=== PATIENT | male | born 1955 | race Caucasian/White ===

== ENCOUNTER → 2020-07-30 13:50 | Outpatient (BNV) | payer OTHER, SELFPAY | PROVIDERS: PCP Internal Medicine; Visit Provider Internal Medicine | DX: C92.10 Chronic myeloid leukemia, BCR/ABL-positive, not having achieved remission (principal) | CPT/HCPCS: 99212; 99213; 99214 ==

== ENCOUNTER 2020-11-30 10:06 | Outpatient (REF) | payer OTHER, SELFPAY | END 2020-11-30 10:07 | disposition home or self-care (01) | LOC: HO.LAB 10:06 | PROVIDERS: Visit Provider Internal Medicine | DX: Z20.822 Contact with and (suspected) exposure to COVID-19 (principal) | CPT/HCPCS: C9803; U0003; U0005 ==

== ENCOUNTER 2020-12-14 10:39 | Outpatient (REF) | payer OTHER, SELFPAY ==
[2020-12-14 10:59] LABS: COVID-19 Test Negative (Negative); IDNOW Serial# 55D5AD1C
== END 2020-12-14 10:40 | disposition home or self-care (01) ==
LOC: HO.LAB 10:39
PROVIDERS: Visit Provider Internal Medicine
DX: Z20.822 Contact with and (suspected) exposure to COVID-19 (principal)
CPT/HCPCS: 36415; 87635; C9803

== ENCOUNTER 2022-11-09 04:26 | Emergency (ER) | payer OTHER, SELFPAY ==
[2022-11-09 04:32] VITALS: BP 165/97; BP 180/100; PULSE 104; PULSE 95; RESP 16; TEMP 36.7; O2SAT 96; O2SAT 98; BMI 29.0
[2022-11-09 04:50] LABS: Basophils Percent Auto 0.6 % (0-2); Eosinophils Absolute Auto 0.1 X10*3/uL (0.0-0.4); Eosinophils Percent Auto 1.1 % (0-4); Hematocrit 45.7 % (42.0-52.0); Hemoglobin 15.9 g/dl (14.0-18.0); Imm Gran Abs Auto 0.02 X10*3/uL (0.00-0.03); Imm Gran Pct Auto 0.4 % (0.0-0.4); Lymphocytes Absolute Auto 1.3 X10*3/uL (1.2-4.9); Lymphocytes Percent Auto 23.9 % (20-40); MANUAL DIFF FLAG NO; Mean Corpuscular HGB Conc 34.8 g/dl (31.0-36.0); Mean Corpuscular Hemoglobin 30.6 pg (27.0-33.0); Mean Corpuscular Volume 88.1 fL (80.0-98.0); Mean Platelet Volume 10.9 fL (9.4-12.4); Monocytes Absolute Auto 0.4 X10*3/uL (0.1-1.2); Monocytes Percent Auto 7.1 % (2-11); Neutrophils Absolute Auto 3.6 x10*3/uL (2.0-8.3); Neutrophils Percent Auto 66.9 % (45-73); Platelet Count 157 X10*3/uL (160-400); Red Blood Count 5.19 X10*6/uL (4.60-5.80); Red Cell Distribution Width 12.9 % (11.0-16.0); White Blood Count 5.4 X10*3/uL (4.8-10.8)
[2022-11-09 05:06] LABS: Anion Gap 18 (12-20); Blood Urea Nitrogen 9 mg/dL (9-16); Calcium 9.2 mg/dL (8.4-10.2); Carbon Dioxide 27 mmol/L (22-29); Chloride 97 mmol/L (96-108); Creatinine Clr Calc Pharmacy 86.7; Estimated Glomerular Filt Rate > 60; Glucose Random 121 mg/dL (60-115); Potassium 3.6 mmol/L (3.3-5.1); Sodium 138 mmol/L (135-145)
[2022-11-09 05:08] LABS: Appearance Urine Clear; Color Urine Yellow; Glucose Urine UA Negative (Negative); Leukocyte Esterase Urine Negative (Negative); Nitrite Urine Negative (Negative); PH 8.5 (5.0-9.0); UMIC TRIGGER UACC YES; Urine Blood Negative (Negative); Urine Ketones Negative (Negative); Urine Protein 30 (1+) mg/dL (Neg-Trace)
[2022-11-09 05:12] LABS: Bacteria Urine None Seen (None Seen); Hyaline Casts Urine 0-2 /LPF (0-2); RBC Urine 0-2 /HPF (0-2); Squamous Epithelial Cell Urine 0-2 /HPF (0-2); WBC Urine 0-5 /HPF (0-5)
[2022-11-09 05:27] LABS: Influenza A PCR NEGATIVE (Negative); Influenza B PCR NEGATIVE (Negative); Resp Syncy Virus RNA Qual PCR NEGATIVE (Negative); SARS COV2 PCR INHOUSE NEGATIVE (Negative)
[2022-11-09 06:00] VITALS: BP 154/90; PULSE 83; RESP 16; TEMP 36.6; O2SAT 96
--- NOTE | 2022-11-09 06:06 | PC.NURSE ---
pt has been sleeping since arrival, no vomiting since arrival. vitals stable. skin pink warm and dry. no s/s of distress.
--- NOTE | 2022-11-09 07:19 | ED.NAVMDI ---
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 The patient complains of abdominal. He points diffusely to his entire abdomen when asked to localize the pain. States the pain is a constant, dull ache. Patient states he has had nausea and vomiting since onset of the pain. Patient has vomited too many times to count. He denied any blood in the emesis. He states that he had chills but no fever. He denied rhinorrhea, sore throat, cough, chest pain, shortness of breath. He has not noticed any dark or bloody stools. Patient states he was drinking alcohol yesterday. He states that he was drinking several nips of whiskey and 2-3 beers. Related Data Home Medications Medication Instructions Recorded Confirmed amlodipine 10 mg tablet 1 tab PO DAILY 07/30/20 10/22/21 atorvastatin 80 mg tablet 1 tab PO BEDTIME 07/30/20 10/22/21 chlorthalidone 25 mg tablet 1 tab PO DAILY 07/30/20 10/22/21 losartan 100 mg tablet 1 tab PO DAILY 07/30/20 10/22/21 metoprolol succinate 50 mg 1 tab PO DAILY 07/30/20 10/22/21 tablet,extended release 24 hr omeprazole 40 mg capsule,delayed 1 cap PO DAILY 07/30/20 10/22/21 release Previous Rx's Medication Instructions Recorded nilotinib 150 mg capsule (Tasigna) 2 cap PO BID #120 caps 08/13/21 famotidine 40 mg tablet 0.5 tab PO DAILY #30 tabs 09/02/22 ondansetron 4 mg disintegrating 4 mg PO Q6-8H PRN nausea and 11/09/22 tablet vomiting #14 tabs Allergies Allergy/AdvReac Type Severity Reaction Status Date / Time No Known Allergies Allergy Unknown Verified 07/30/20 14:22 Review of Systems Review of Systems: Yes all other systems are reviewed and are negative [facility] Past Medical History [facility] Narrative: Social history: He lives at home with his . He denies tobacco use. He does drink alcohol daily. He denies drug use. Medical History Arthritis Chronic myelogenous leukemia Chronic neck pain Depression Fatty liver History of alcohol abuse Hypercholesteremia Hypertension Osteoarthritis Surgical History History of prostate surgery Family History Family History Mother Diabetes Father Heart problem Liver cancer Brother Prostate CA Family/Other Breast cancer Paternal Aunt Metastatic cancer Social History Social History Alcohol intake: current Alcohol intake frequency: a few times a week Smoked in Last 30 Days: No Use of substances other than those prescribed or required for medical reasons: No Advance Directives: No Advance Directives Information Provided: Yes Physical Exam Vital Signs: Vital Signs: Last Vital Signs Temp 98 F 11/09/22 06:00 Pulse 72 11/09/22 08:02 Resp 16 11/09/22 08:02 BP 165/88 H 11/09/22 08:02 Pulse Ox 97 11/09/22 08:02 O2 Del Method Room Air 11/09/22 08:02 BMI result Body Mass Index 29.0 Const: General: cooperative and no acute distress Orientation/consciousness: oriented to person and oriented to place Limitations: no limitations HEENT: Head: Yes normal to inspection, Yes normocephalic and Yes atraumatic Ears: external ears normal General nose exam: Normal external nose present Face and sinus: Yes normal facial exam Mouth: Normal oral and palatal mucosa present Throat: Yes posterior oropharynx normal Eyes: General: appearance normal, both eyes and all related structures Pupils: Equal, round and reactive pupils present Neck: Neck: Yes normal visual inspection, Yes no lymphadenopathy, Yes trachea midline and Yes supple Chest: Chest palpation & inspection: normal inspection of the chest and normal palpation of entire chest wall Resp: Effort & Inspection: normal respiratory effort and able to speak in complete sentences Auscultation: clear to auscultation bilaterally Cardio: Rate: regular rate Rhythm: regular rhythm Heart sounds: S1 normal heart sound present, S2 normal heart sound present and no murmurs GI: Inspection: Yes normal to inspection Palpation (GI): Soft to palpation, Tenderness to palpation present (GI) in the epigastrum (Moderate), in the LUQ (Moderate) and periumbilically (Moderate) and no guarding Auscultation: normal bowel sounds : General: Yes no CVA tenderness Back/Spine/Pelvis: Back: no CVA tenderness Skin: General skin exam: no rashes or lesions noted Neuro: General: oriented to person and oriented to place Cranial nerves: Yes CN's II-XII intact bilaterally and Yes Equal, round and reactive pupils present Cognition (Neuro): normal cognition Motor exam (neuro): 5/5 motor strength present throughout Extrem: General: Yes normal to inspection Psych: Appearance: grossly normal Speech and movement: Normal speech and movement present Affect: normal affect Attitude: cooperative Thought process: Normal thought process present Medications Administered Discontinued Medications Generic Name Dose Route Start Last Admin Trade Name Freq PRN Reason Stop Dose Admin Sodium Chloride 1,000 mls @ 999 mls/hr 11/09/22 07:23 11/09/22 07:58 Ns IV 11/09/22 08:23 999 mls/hr .Q1H1M STA Administration Ketorolac Tromethamine 15 mg 11/09/22 07:23 11/09/22 07:58 Ketorolac Tromethamine 15 Mg/Ml Vial IVPUSH 11/09/22 07:24 15 mg ONCE STA Administration Ondansetron HCl 4 mg 11/09/22 07:23 11/09/22 07:58 Ondansetron Hcl 4 Mg/2 Ml Vial IVPUSH 11/09/22 07:24 4 mg ONCE ONE Administration Medical Decision Making Medical Decision Making [facility] Narrative: 67-year-old male presents emergency department for evaluation of chills, nausea, vomiting and abdominal pain which started yesterday at 23:00. Patient was drinking alcohol throughout the day yesterday. Vital signs did reveal an elevated blood pressure of 165/97 otherwise unremarkable. Patient did have diffuse abdominal tenderness with some increased tenderness in the epigastric periumbilical and left lower quadrant area. I ordered a CBC, CMP, lipase, ethanol level, urinalysis. Patient was ordered to get normal saline x1 L, Zofran 4 mg IV for his nausea and Toradol 15 mg IV for his abdominal pain. 0724: My interpretation laboratory data is as follows: CBC normal. Glucose elevated 121. Urinalysis positive for protein otherwise negative. COVID-19, influenza and RSV were negative. ETOH was below detectable limits, lipase was normal. 0835: The patient is feeling better after the above treatment. I did discuss alcohol use disorder and he states that he does not want help at this time and he will cut down a lot of alcohol that he drinks. Patient does take omeprazole and famotidine and told to continue taking these medications. He was prescribed Zofran 4 mg ODT every 8 hours as needed for nausea and vomiting. He was given printed and verbal instructions and discharged home. Differential Diagnosis Differential diagnosis includes was not limited to gastritis, alcoholic gastritis, pancreatitis, alcoholic hepatitis, viral syndrome Lab Data 11/09/22 04:45 11/09/22 04:45 Labs: Lab Results 11/09/22 11/09/22 11/09/22 Range/Units 04:45 04:45 04:45 WBC 5.4 (4.8-10.8) X10*3/uL RBC 5.19 (4.60-5.80) X10*6/uL Hgb 15.9 (14.0-18.0) g/dl Hct 45.7 (42.0-52.0) % MCV 88.1 (80.0-98.0) fL MCH 30.6 (27.0-33.0) pg MCHC 34.8 (31.0-36.0) g/dl RDW 12.9 (11.0-16.0) % Plt Count 157 L (160-400) X10*3/uL MPV 10.9 (9.4-12.4) fL Immature Gran % (Auto) 0.4 (0.0-0.4) % Neut % (Auto) 66.9 (45-73) % Lymph % (Auto) 23.9 (20-40) % Pope % (Auto) 7.1 (2-11) % Eos % (Auto) 1.1 (0-4) % Baso % (Auto) 0.6 (0-2) % Lymph # (Auto) 1.3 (1.2-4.9) X10*3/uL Pope # (Auto) 0.4 (0.1-1.2) X10*3/uL Eos # (Auto) 0.1 (0.0-0.4) X10*3/uL Baso # (Auto) 0.0 (0.0-0.2) X10*3/uL Abs Immat Gran (auto) 0.02 (0.00-0.03) X10*3/uL Absolute Neuts (auto) 3.6 (2.0-8.3) x10*3/uL Absolute Nucleated RBC 0.000 (0.0-0.012) X10*3/uL Nucleated RBC % (auto) 0.0 (0.0-0.2) /100WBC Sodium 138 (135-145) mmol/L Potassium 3.6 (3.3-5.1) mmol/L Chloride 97 (96-108) mmol/L Carbon Dioxide 27 (22-29) mmol/L Anion Gap 18 (12-20) BUN 9 (9-16) mg/dL Creatinine 0.84 (0.5-1.4) mg/dL Estim Creat Clear Calc 86.7 Estimated GFR > 60 Random Glucose 121 H (60-115) mg/dL Calcium 9.2 (8.4-10.2) mg/dL Lipase 25 (8-78) U/L Urine Color Urine Appearance Urine pH (5.0-9.0) Ur Specific [place] (1.005-1.025) Urine Protein (Neg-Trace) mg/dL Urine Glucose (UA) (Negative) mg/dL Urine Ketones (Negative) mg/dL Urine Blood (Negative) Urine Nitrite (Negative) Ur Leukocyte Esterase (Negative) Urine RBC (0-2) /HPF Urine WBC (0-5) /HPF Ur Squamous Epith Cells (0-2) /HPF Urine Bacteria (None Seen) Hyaline Casts (0-2) /LPF Ethyl Alcohol < 10 mg/dL Influenza Type A (PCR) NEGATIVE (Negative) Influenza Type B (PCR) NEGATIVE (Negative) RSV RNA Qual (PCR) NEGATIVE (Negative) SARS-CoV-2 RNA (RT-PCR) NEGATIVE (Negative) 11/09/22 Range/Units 04:57 WBC (4.8-10.8) X10*3/uL RBC (4.60-5.80) X10*6/uL Hgb (14.0-18.0) g/dl Hct (42.0-52.0) % MCV (80.0-98.0) fL MCH (27.0-33.0) pg MCHC (31.0-36.0) g/dl RDW (11.0-16.0) % Plt Count (160-400) X10*3/uL MPV (9.4-12.4) fL Immature Gran % (Auto) (0.0-0.4) % Neut % (Auto) (45-73) % Lymph % (Auto) (20-40) % Pope % (Auto) (2-11) % Eos % (Auto) (0-4) % Baso % (Auto) (0-2) % Lymph # (Auto) (1.2-4.9) X10*3/uL Pope # (Auto) (0.1-1.2) X10*3/uL Eos # (Auto) (0.0-0.4) X10*3/uL Baso # (Auto) (0.0-0.2) X10*3/uL Abs Immat Gran (auto) (0.00-0.03) X10*3/uL Absolute Neuts (auto) (2.0-8.3) x10*3/uL Absolute Nucleated RBC (0.0-0.012) X10*3/uL Nucleated RBC % (auto) (0.0-0.2) /100WBC Sodium (135-145) mmol/L Potassium (3.3-5.1) mmol/L Chloride (96-108) mmol/L Carbon Dioxide (22-29) mmol/L Anion Gap (12-20) BUN (9-16) mg/dL Creatinine (0.5-1.4) mg/dL Estim Creat Clear Calc Estimated GFR Random Glucose (60-115) mg/dL Calcium (8.4-10.2) mg/dL Lipase (8-78) U/L Urine Color Yellow Urine Appearance Clear Urine pH 8.5 (5.0-9.0) Ur Specific [place] 1.010 (1.005-1.025) Urine Protein 30 (1+) H (Neg-Trace) mg/dL Urine Glucose (UA) Negative (Negative) mg/dL Urine Ketones Negative (Negative) mg/dL Urine Blood Negative (Negative) Urine Nitrite Negative (Negative) Ur Leukocyte Esterase Negative (Negative) Urine RBC 0-2 (0-2) /HPF Urine WBC 0-5 (0-5) /HPF Ur Squamous Epith Cells 0-2 (0-2) /HPF Urine Bacteria None Seen (None Seen) Hyaline Casts 0-2 (0-2) /LPF Ethyl Alcohol mg/dL Influenza Type A (PCR) (Negative) Influenza Type B (PCR) (Negative) RSV RNA Qual (PCR) (Negative) SARS-CoV-2 RNA (RT-PCR) (Negative) Discharge Plan Discharge Clinical Impression: Alcohol use disorder, Acute dehydration Gastritis Qualifiers: Chronicity: acute Gastritis bleeding: without bleeding Patient Disposition: Home, Self-Care Instructions: Gastritis (ED) Additional Instructions: Your blood work was normal which is reassuring. Your symptoms are either caused by a viral infection or by drinking too much alcohol. Continue taking medications as prescribed (omeprazole and famotidine). These medications will reduce the acid in your stomach and help your stomach heal. Take Zofran ODT 4 mg pills, 1 pill dissolved in your mouth every 8 hours as needed for nausea and vomiting. Follow-up with your doctor in 2 days. Please return to the emergency department if your symptoms get worse or if you develop any symptoms that are concerning to you. Prescriptions: New ondansetron 4 mg tablet,disintegrating 4 mg PO Q6-8H PRN (Reason: nausea and vomiting) Qty: 14 0RF No Action atorvastatin 80 mg tablet 1 tab PO BEDTIME metoprolol succinate 50 mg tablet extended release 24 hr 1 tab PO DAILY chlorthalidone 25 mg tablet 1 tab PO DAILY omeprazole 40 mg capsule,delayed release(DR/EC) 1 cap PO DAILY amlodipine 10 mg tablet 1 tab PO DAILY losartan 100 mg tablet 1 tab PO DAILY Tasigna 150 mg capsule 2 cap PO BID Qty: 120 6RF famotidine 40 mg tablet 0.5 tab PO DAILY Qty: 30 6RF
[2022-11-09 07:38] LABS: Ethanol < 10 mg/dL; Lipase 25 U/L (8-78)
[2022-11-09] MEDS: Ketorolac Tromethamine 15 MG/ML VIAL IVPUSH (07:58)
[2022-11-09] MEDS: ondansetron HCL 4 MG/2 ML VIAL IVPUSH (07:58)
[2022-11-09] MEDS: 0.9 % Sodium Chloride 1,000 ML 999 ML IV (07:58)
[2022-11-09 08:02] VITALS: BP 165/88; PULSE 72; RESP 16; O2SAT 97
--- NOTE | 2022-11-09 08:02 | PC.NURSE ---
Respirations even and unlabored, vss. Pt resting quietly on stretcher. IV fluids infusing, medicated per the MAR. Call zaman in reach.
== END 2022-11-09 09:02 | disposition home or self-care (01) ==
PROVIDERS: Emergency Provider Emergency Medicine Emergency Medical Services
DX: K29.00 Acute gastritis without bleeding (principal); E86.0 Dehydration; F10.188 Alcohol abuse with other alcohol-induced disorder; Y90.0 Blood alcohol level of less than 20 mg/100 ml; R11.2 Nausea with vomiting, unspecified; Z20.822 Contact with and (suspected) exposure to COVID-19; Z20.828 Contact with and (suspected) exposure to other viral communicable diseases; C92.10 Chronic myeloid leukemia, BCR/ABL-positive, not having achieved remission; E78.5 Hyperlipidemia, unspecified; I10 Essential (primary) hypertension; Z79.02 Long term (current) use of antithrombotics/antiplatelets; Z79.899 Other long term (current) drug therapy
CPT/HCPCS: 0241U; 36415; 80048; 81001; 81003; 82077; 83690; 85025; 96374; 96375; 99284; J1885; J2405

== ENCOUNTER 2022-11-30 11:36 | Emergency (ER) | payer OTHER, SELFPAY ==
--- NOTE | ~2022-11-30 | US_ITS ---
EXAMINATION: US ABDOMEN LIMITED CLINICAL INFORMATION: Right upper quadrant pain. COMPARISON: Previous CT February 2020 and ultrasound October 2008 TECHNIQUE: Real-time imaging of the right upper quadrant abdominal viscera. FINDINGS: PANCREAS: The head of the pancreas is normal. The body and tail are not well visualized due to bowel gas. LIVER: Liver echotexture is increased. The liver is slightly enlarged. The liver contour is normal. No focal hepatic lesion. There is no intrahepatic biliary duct dilatation seen. GALLBLADDER: Normal. The gallbladder is physiologically distended without evidence of stones, sludge, polyps, wall thickening or pericholecystic fluid. COMMON BILE DUCT: Normal in caliber measuring 0.3 cm in diameter. RIGHT KIDNEY: Normal. No hydronephrosis. No renal calculi or focal parenchymal lesions. The kidney measures 10.5 cm in maximum dimension. FREE FLUID: None. US/US abdomen limited IMPRESSION: Slightly enlarged echogenic liver probably representing fatty infiltration. Normal-appearing gallbladder. Limited visualization of the tail the pancreas.
--- NOTE | ~2022-11-30 | XR_ITS ---
EXAMINATION: XR CHEST CLINICAL INFORMATION: Cough COMPARISON: Chest radiograph 10/13/2019, CTA chest 02/04/2019. TECHNIQUE: 2 views of the chest were obtained. FINDINGS: The lungs are clear. There is no airspace consolidation or groundglass opacity or effusion. Small benign granuloma lateral apical right upper lobe is stable from CTA chest 2019. The costophrenic sulci are clear. The heart is normal in size. The hilar and mediastinal contours and visualized bony structures are unremarkable. XR/XR chest 2V IMPRESSION: Lungs clear. No acute intrathoracic disease.
--- NOTE | ~2022-11-30 | CT_ITS ---
EXAMINATION: CT ABDOMEN AND PELVIS WITH CONTRAST CLINICAL INFORMATION: Abdominal pain. COMPARISON: 02/19/2020 CT scan of the abdomen and pelvis, abdominal ultrasound dated 11/30/2022. TECHNIQUE: Multidetector volumetric images were obtained from the superior aspect of the liver through the pubic symphysis following administration 85 mL of Omnipaque 350 intravenous contrast. Sagittal and coronal reformatted images were obtained on the technologist's workstation. Oral contrast: No This CT examination was performed using dose optimization techniques as appropriate, variously including the following: *Automated exposure control *Adjustment of mA and/or kV according to patient size (this includes techniques or standardized protocols for targeted exams where dose is matched to indication/reason for exam; i.e. extremities or head) *Use of iterative reconstruction technique DLP: 506 mGy-cm FINDINGS: LUNG BASES: The visualized lung bases are unremarkable. LIVER, GALLBLADDER, AND BILIARY TREE: Diffuse decreased hepatic attenuation without focal abnormality. PANCREAS: Unremarkable. SPLEEN: Unremarkable. ADRENAL GLANDS: Unremarkable. KIDNEYS AND URETERS: Small low-attenuation cyst bilaterally demonstrate overall benign features. The larger cyst demonstrates fluid attenuation. No nephrolithiasis or hydroureteronephrosis. BLADDER: Mildly distended without focal mural abnormality. GASTROINTESTINAL TRACT: The stomach and small bowel are unremarkable. There is increased mural thickening and minimal surrounding infiltrative changes measuring up to 1.0 cm (previously 0.6 cm), image 62, series 3. The colon and rectum are unremarkable. ABDOMINAL WALL: Small fat-containing left inguinal hernia without abnormality. LYMPH NODES: No lymphadenopathy. VASCULAR: Unremarkable. PELVIC VISCERA: Mild prostamegaly with mild coarse central calcifications. OSSEOUS STRUCTURES: Mild degenerative changes. No acute/suspicious abnormality. CT/CT abdomen pelvis w IV con IMPRESSION: 1. Interval increase in thickening of the appendix since 2019 study. These findings are of indeterminate age given the long interval between studies however, acute appendicitis cannot be excluded. 2. Hepatic steatosis. 3. Bilateral renal cyst and shows benign features not requiring follow-up at this time.
[2022-11-30 11:45] VITALS: BP 146/88; BP 170/90; PULSE 80; PULSE 81; RESP 18; TEMP 36.9; O2SAT 96; O2SAT 99; BMI 27.3
--- NOTE | 2022-11-30 12:34 | ED.ABDPAIN ---
HPI - Abdominal Pain General Chief Complaint: Abdominal Pain <CARMEN Saenz Last Filed: 12/01/22 07:23> Stated Complaint: Abd pain per EMS <CARMEN Saenz Last Filed: 12/01/22 07:23> Time Seen by Provider: 11/30/22 12:05 <CARMEN Saenz Last Filed: 12/01/22 07:23> Source: patient, RN notes reviewed and language interpreter (With) <CARMEN Saenz Last Filed: 12/01/22 07:23> Mode of arrival: ambulatory <CARMEN Saenz Last Filed: 12/01/22 07:23> Limitations: no limitations and language barrier (Can speak some Ethiopian, does understand Kenyan however the paraprofessional interpreter was used) <CARMEN Saenz Last Filed: 12/01/22 07:23> History of Present Illness HPI narrative: This is a 67-year-old male, with a past medical history of chronic myeloid leukemia, who presents emergency department today complaining of nausea, vomiting, right upper quadrant pain, and dark stool x2 days. Patient reports decreased appetite secondary to fear of developing worsening abdominal pain. He was able to eat breakfast this morning however reports that he vomited it back up. Patient reports that he has acidic, bitter taste in his mouth. He denies bright red blood vomitus or stool. He denies any fevers, admits to having chills. Denies ear pain, runny nose, chest pain, shortness of breath, cough. Denies any other complaints or concerns at this time. <CARMEN Saenz Last Filed: 12/01/22 07:23> MD elicited complaint: abdominal pain <CARMEN Saenz Last Filed: 12/01/22 07:23> Pertinent past history: none <CARMEN Saenz Last Filed: 12/01/22 07:23> Onset (ago): day(s) <CARMEN Saenz Last Filed: 12/01/22 07:23> Pain Consistency: constant and colicky <CARMEN Saenz Last Filed: 12/01/22 07:23> Location: none <CARMEN Saenz Last Filed: 04/27/23 07:23> Severity: moderate <CARMEN Saenz Last Filed: 12/01/22 07:23> Quality: aching <CARMEN Saenz Last Filed: 12/01/22 07:23> Radiation: RUQ <CARMEN Saenz Last Filed: 12/01/22 07:23> Migration to: no migration <CARMEN Saenz Last Filed: 12/01/22 07:23> Exacerbating factors: eating and vomiting <CARMEN Saenz Last Filed: 12/01/22 07:23> Relieving factors: nothing <CARMEN Saenz Last Filed: 12/01/22 07:23> Associated symptoms: nausea, vomiting and melena <CARMEN Saenz Last Filed: 12/01/22 07:23> Related Data Home Medications: Home Medications Medication Instructions Recorded Confirmed amlodipine 10 mg tablet 1 tab PO DAILY 07/30/20 10/22/21 atorvastatin 80 mg tablet 1 tab PO BEDTIME 07/30/20 10/22/21 chlorthalidone 25 mg tablet 1 tab PO DAILY 07/30/20 10/22/21 losartan 100 mg tablet 1 tab PO DAILY 07/30/20 10/22/21 metoprolol succinate 50 mg 1 tab PO DAILY 07/30/20 10/22/21 tablet,extended release 24 hr omeprazole 40 mg capsule,delayed 1 cap PO DAILY 07/30/20 10/22/21 release Previous Rx's Medication Instructions Recorded nilotinib 150 mg capsule (Tasigna) 2 cap PO BID #120 caps 08/13/21 famotidine 40 mg tablet 0.5 tab PO DAILY #30 tabs 09/02/22 ondansetron 4 mg disintegrating 4 mg PO Q6-8H PRN nausea and 11/09/22 tablet vomiting #14 tabs ondansetron 4 mg disintegrating 4 mg PO Q8H PRN nausea and 11/30/22 tablet vomiting #20 tabs <CARMEN Saenz Last Filed: 12/01/22 07:23> Allergies/Adverse Reactions: Allergies Allergy/AdvReac Type Severity Reaction Status Date / Time No Known Allergies Allergy Unknown Verified 07/30/20 14:22 <CARMEN Saenz Last Filed: 12/01/22 07:23> Review of Systems Review of Systems Constitutional: No Weight loss, No Fever, No Chills, No Night Sweats, No Fatigue, No Malaise ENT/Mouth: No Hearing loss, No Ear Pain, No Nasal Congestion, No Sinus Pain, No Hoarseness, No sore throat, No Rhinorrhea, No Swallowing Difficulty Eyes: No Eye Pain, No Swelling, No Redness, No Foreign Body, No Discharge, No Vision Changes Cardiovascular: No Chest Pain, No SOB, No Dyspnea on Exertion, No Orthopnea, No Edema, No Palpitations Respiratory: No Cough, No Sputum, No Wheezing, No Smoke Exposure, No Dyspnea Gastrointestinal: + Nausea, +Vomiting, No Diarrhea, No Constipation, + Abdominal pain, No Hematochezia, + Melena Genitourinary: No irregular bleeding, No Dysuria, No Urinary Frequency, No Hematuria, No Urinary Incontinence/retention, No Urgency, No Flank Pain, No Urinary Flow Changes, No Hesitancy Musculoskeletal: No joint pain, No Myalgias, No Joint Swelling Skin: No Skin Lesions, No rash Neuro: No Weakness, No Numbness, No Paresthesias, No Loss of Consciousness, No Dizziness, No Headache Psych: No Anxiety/Panic, No Depression, No SI/HI/AH/VH, No Social Issues, Heme/Lymph: No Bruising, No Bleeding,No Lymphadenopathy Endocrine: No Polyuria, No Polydipsia, No Temperature Intolerance <CARMEN Saenz - Last Filed: 12/01/22 07:23> Yes all other systems are reviewed and are negative <CARMEN Saenz - Last Filed: 12/01/22 07:23> Constitutional: Reports as per HPI <CARMEN Saenz - Last Filed: 12/01/22 07:23> [facility] Past Medical History Attestation statement: The following information was validated with the patient. <CARMEN Saenz - Last Filed: 12/01/22 07:23> Medical History: Medical History Arthritis Chronic myelogenous leukemia Chronic neck pain Depression Fatty liver History of alcohol abuse Hypercholesteremia Hypertension Osteoarthritis <CARMEN Saenz - Last Filed: 12/01/22 07:23> Surgical History: Surgical History History of prostate surgery <CARMEN Saenz - Last Filed: 12/01/22 07:23> Family History Family History: Family History Mother Diabetes Father Heart problem Liver cancer Brother Prostate CA Family/Other Breast cancer Paternal Aunt Metastatic cancer <CARMEN Saenz - Last Filed: 12/01/22 07:23> Social History Social History: Social History Alcohol intake: current Alcohol intake frequency: a few times a week Advance Directives: No Advance Directives Information Provided: Yes <CARMEN Saenz - Last Filed: 12/01/22 07:23> Physical Exam ED Vital Signs: Vital Signs - 24 hr 11/30/22 11:45 11/30/22 14:08 Temperature 98.4 F Pulse Rate 80 77 Respiratory Rate 18 16 Blood Pressure 146/88 H 165/85 H Pulse Oximetry 96 98 Oxygen Delivery Method Room Air Room Air BMI result Body Mass Index 27.3 <CARMEN Saenz - Last Filed: 12/01/22 07:23> Vital Signs - 24 hr 11/30/22 11:45 11/30/22 14:08 Temperature 98.4 F Pulse Rate 80 77 Respiratory Rate 18 16 Blood Pressure 146/88 H 165/85 H Pulse Oximetry 96 98 Oxygen Delivery Method Room Air Room Air BMI result Body Mass Index 27.3 <Ihsan López - Last Filed: 11/30/22 18:20> Const General: cooperative, comfortable and no acute distress <CARMEN Saenz - Last Filed: 12/01/22 07:23> Orientation/consciousness: patient oriented x3 <CARMEN Saenz - Last Filed: 12/01/22 07:23> Limitations: no limitations <CARMEN Saenz - Last Filed: 12/01/22 07:23> HENMT Head: Yes normal to inspection, Yes normocephalic and Yes atraumatic <CARMEN Saenz - Last Filed: 12/01/22 07:23> Ears: hearing grossly normal bilaterally <CARMEN Saenz - Last Filed: 12/01/22 07:23> General nose exam: Normal external nose present <Susie Romo, PA - Last Filed: 12/01/22 07:23> Face and sinus: Yes normal facial exam <Susie Demetrius PA - Last Filed: 12/01/22 07:23> Mouth: Normal oral and palatal mucosa present, oropharynx normal and moist mucous membranes <Susie Romo PA - Last Filed: 12/01/22 07:23> Throat: Yes posterior oropharynx normal <Susie Romo, PA - Last Filed: 12/01/22 07:23> Eyes General: appearance normal, both eyes and all related structures <Susie Romo PA - Last Filed: 12/01/22 07:23> Eyelids: Yes eyelids normal <Susie Romo PA - Last Filed: 12/01/22 07:23> Conjunctivae: conjunctivae normal <Susie Romo PA - Last Filed: 12/01/22 07:23> Sclerae: sclerae normal <Susie Romo PA - Last Filed: 12/01/22 07:23> Pupils: Equal, round and reactive pupils present <Susie Romo PA - Last Filed: 12/01/22 07:23> EOM: EOMs intact bilaterally <Susie Romo PA - Last Filed: 12/01/22 07:23> Neck Neck: Yes normal visual inspection, Yes full ROM and Yes no lymphadenopathy <Susie Romo PA - Last Filed: 12/01/22 07:23> Lymphatic: no lymphadenopathy noted <Susie Romo PA - Last Filed: 12/01/22 07:23> Chest Chest palpation & inspection: normal inspection of the chest <Susie Romo PA - Last Filed: 12/01/22 07:23> Resp Effort & Inspection: normal respiratory effort and able to speak in complete sentences <Susie Romo PA - Last Filed: 12/01/22 07:23> Auscultation: clear to auscultation bilaterally, no crackles, no rales, no rhonchi and no wheezes <Susie Romo PA - Last Filed: 12/01/22 07:23> Cardio Rate: regular rate <Susie Romo PA - Last Filed: 12/01/22 07:23> Rhythm: regular rhythm <Susie Kinneyyasmeen PA - Last Filed: 12/01/22 07:23> Heart sounds: S1 normal heart sound present and S2 normal heart sound present <Susie Kinneyyasmeen PA - Last Filed: 12/01/22 07:23> GI Other: Abdomen is soft, tenderness to palpation throughout the abdomen, most tender in the right upper quadrant. +Ley sign. No rebound, no guarding. Normoactive bowel sounds. Minimal stool in rectum, appears light brown in color. <Susie Kinneyyasmeen PA - Last Filed: 12/01/22 07:23> Inspection: Yes normal to inspection <Susieedward Romo PA - Last Filed: 12/01/22 07:23> Rectal Exam - Male: Yes visual inspection normal and Yes normal sphincter tone <Susie Romo, PA - Last Filed: 12/01/22 07:23> Skin General skin exam: no rashes or lesions noted <Susie Romo [place] - Last Filed: 12/01/22 07:23> Trauma: no lacerations or abrasions <Susie Romo [place] - Last Filed: 12/01/22 07:23> Wounds: no wounds <Susie Romo PA - Last Filed: 12/01/22 07:23> Neuro General: patient oriented x3 and moves all extremities <Susieedward Romo PA - Last Filed: 12/01/22 07:23> Cranial nerves: Yes Equal, round and reactive pupils present <Susie Romo PA - Last Filed: 12/01/22 07:23> Extrem General: Yes normal to inspection <Susie Romo PA - Last Filed: 12/01/22 07:23> Right upper extremity: normal to inspection <Susie Romo PA - Last Filed: 12/01/22 07:23> Left upper extremity: normal to inspection <Susie Romo PA - Last Filed: 12/01/22 07:23> Right lower extremity: normal to inspection <Susie Romo PA - Last Filed: 12/01/22 07:23> Left lower extremity: normal to inspection <Susie Romo PA - Last Filed: 12/01/22 07:23> Course Course Course Narrative: 6:18 p.m. patient received in sign-out at change shift pending CT scan of the abdomen re-evaluation. I evaluated the patient is a paraprofessional interpreter. The patient reports his pain has improved. He does have some tenderness in the epigastric region but there is no right lower quadrant tenderness on exam. CT scan does show some interval increase in taking the appendix. However given is no right lower quadrant tenderness on exam this is favored to not be acute appendicitis. I discussed the patient's workup with the patient he is stable to follow up with his primary doctor <Ihsan López - Last Filed: 11/30/22 18:20> Reevaluation(s) Reevaluation #1: Pt requesting pain medication, Toradol 30mg IM ordered. <CARMEN Saenz - Last Filed: 12/01/22 07:23> Time: 14:00 <CARMEN Saenz - Last Filed: 12/01/22 07:23> Reevaluation #2: Pt sleeping in stretcher, still reporting pain, improved with Toradol. Nausea has resolved. Ultrasound reviewed as Slightly enlarged echogenic liver probably representing fatty infiltration. Normal-appearing gallbladder. Limited visualization of the tail the pancreas. CT abdomen and pelvis ordered for further evaluation. <CARMEN Saenz - Last Filed: 12/01/22 07:23> Time: 14:44 <CARMEN Saenz - Last Filed: 12/01/22 07:23> Reevaluation #3: CT scan still pending. Given sign out to Ihsan López PA-C <CARMEN Saenz Last Filed: 12/01/22 07:23> Time: 16:33 <CARMEN Saenz Last Filed: 12/01/22 07:23> Medical Decision Making Medical Decision Making MDM Narrative: 67 yo M, with a hx of CML, who presents to the emergency department with complaints of RUQ pain, nausea, vomiting, and dark colored stool x 2 days. On examination, patient has mild tenderness to palpation in the right quadrant, with no rebound or guarding. Patient is mildly hypertensive at 146/88, patient is afebrile, all other vital signs WNL. Upon chart review, patient was seen in the ER on 11/09/2022 with similar symptoms, and had a normal work up, dx with gastritis. Plan: Labs, UA, chest x-ray, ultrasound right upper quadrant ordered. <Susie RomoCARMEN - Last Filed: 12/01/22 07:23> Differential Diagnosis Differential Diagnoses: The differential diagnosis associated with the presentation includes <Susie RomoCARMEN - Last Filed: 12/01/22 07:23> Cholecystitis, cholelithiasis, dehydration, electrolyte abnormality, GERD, gastritis <Susie RomoCARMEN arana - Last Filed: 12/01/22 07:23> Admission/Observation Consideration of admission/observation: Escalation of care including admission/observation considered <Susie RomoCARMEN arana - Last Filed: 12/01/22 07:23> Lab Data MDM Lab Attestation statement: I reviewed the patient's lab results. <Susie RomoCARMEN arana - Last Filed: 12/01/22 07:23> Result Diagrams: 11/30/22 12:46 11/30/22 12:46 <SusieCARMEN Rosas - Last Filed: 12/01/22 07:23> Labs: Lab Results 11/30/22 11/30/22 11/30/22 Range/Units 12:38 12:38 12:38 WBC (4.8-10.8) X10*3/uL RBC (4.60-5.80) X10*6/uL Hgb (14.0-18.0) g/dl Hct (42.0-52.0) % MCV (80.0-98.0) fL MCH (27.0-33.0) pg MCHC (31.0-36.0) g/dl RDW (11.0-16.0) % Plt Count (160-400) X10*3/uL MPV (9.4-12.4) fL Immature Gran % (Auto) (0.0-0.4) % Neut % (Auto) (45-73) % Lymph % (Auto) (20-40) % [place] % (Auto) (2-11) % Eos % (Auto) (0-4) % Baso % (Auto) (0-2) % Lymph # (Auto) (1.2-4.9) X10*3/uL [place] # (Auto) (0.1-1.2) X10*3/uL Eos # (Auto) (0.0-0.4) X10*3/uL Baso # (Auto) (0.0-0.2) X10*3/uL Abs Immat Gran (auto) (0.00-0.03) X10*3/uL Absolute Neuts (auto) (2.0-8.3) x10*3/uL Absolute Nucleated RBC (0.0-0.012) X10*3/uL Nucleated RBC % (auto) (0.0-0.2) /100WBC Sodium (135-145) mmol/L Potassium (3.3-5.1) mmol/L Chloride (96-108) mmol/L Carbon Dioxide (22-29) mmol/L Anion Gap (12-20) BUN (9-16) mg/dL Creatinine (0.5-1.4) mg/dL Estim Creat Clear Calc Estimated GFR Random Glucose (60-115) mg/dL Calcium (8.4-10.2) mg/dL Magnesium (1.6-2.6) mg/dL Total Bilirubin (0.0-1.0) mg/dL Direct Bilirubin (0.0-0.5) mg/dL AST (5-37) U/L ALT (0-40) U/L Alkaline Phosphatase (39-117) U/L Total Protein (6.5-8.0) g/dL Albumin (3.5-5.0) g/dL Lipase (8-78) U/L Urine Color Yellow Urine Appearance Clear Urine pH 7.5 (5.0-9.0) Ur Specific Picher <= 1.005 (1.005-1.025) Urine Protein Negative (Neg-Trace) mg/dL Urine Glucose (UA) Negative (Negative) mg/dL Urine Ketones Negative (Negative) mg/dL Urine Blood Negative (Negative) Urine Nitrite Negative (Negative) Ur Leukocyte Esterase Negative (Negative) Stool Occult Blood NEGATIVE (NEGATIVE) Urine Opiates Screen Not Detected (Not Detect) Urine Fentanyl Screen POSITIVE H (Not Detect) Ur Barbiturates Screen Not Detected (Not Detect) Ur Phencyclidine Scrn Not Detected (Not Detect) Ur Amphetamines Screen Not Detected (Not Detect) U Benzodiazepines Scrn Not Detected (Not Detect) Urine Cocaine Screen POSITIVE H (Not Detect) U Marijuana (THC) Screen Not Detected (Not Detect) Ethyl Alcohol mg/dL 11/30/22 11/30/22 Range/Units 12:46 14:13 WBC 3.3 L (4.8-10.8) X10*3/uL RBC 4.84 (4.60-5.80) X10*6/uL Hgb 15.1 (14.0-18.0) g/dl Hct 43.7 (42.0-52.0) % MCV 90.3 (80.0-98.0) fL MCH 31.2 (27.0-33.0) pg MCHC 34.6 (31.0-36.0) g/dl RDW 12.4 (11.0-16.0) % Plt Count 110 L D (160-400) X10*3/uL MPV 11.5 (9.4-12.4) fL Immature Gran % (Auto) 0.3 (0.0-0.4) % Neut % (Auto) 66.7 (45-73) % Lymph % (Auto) 24.3 (20-40) % [place] % (Auto) 6.9 (2-11) % Eos % (Auto) 1.5 (0-4) % Baso % (Auto) 0.3 (0-2) % Lymph # (Auto) 0.8 L (1.2-4.9) X10*3/uL [place] # (Auto) 0.2 (0.1-1.2) X10*3/uL Eos # (Auto) 0.1 (0.0-0.4) X10*3/uL Baso # (Auto) 0.0 (0.0-0.2) X10*3/uL Abs Immat Gran (auto) 0.01 (0.00-0.03) X10*3/uL Absolute Neuts (auto) 2.2 (2.0-8.3) x10*3/uL Absolute Nucleated RBC 0.000 (0.0-0.012) X10*3/uL Nucleated RBC % (auto) 0.0 (0.0-0.2) /100WBC Sodium 137 (135-145) mmol/L Potassium 3.7 (3.3-5.1) mmol/L Chloride 105 (96-108) mmol/L Carbon Dioxide 27 (22-29) mmol/L Anion Gap 9 L (12-20) BUN 5 L (9-16) mg/dL Creatinine 0.67 (0.5-1.4) mg/dL Estim Creat Clear Calc 102.3 Estimated GFR > 60 Random Glucose 115 (60-115) mg/dL Calcium 8.3 L D (8.4-10.2) mg/dL Magnesium 1.9 (1.6-2.6) mg/dL Total Bilirubin 1.4 H (0.0-1.0) mg/dL Direct Bilirubin 0.4 (0.0-0.5) mg/dL AST 68 H (5-37) U/L ALT 53 H (0-40) U/L Alkaline Phosphatase 108 (39-117) U/L Total Protein 6.5 (6.5-8.0) g/dL Albumin 3.1 L (3.5-5.0) g/dL Lipase 48 (8-78) U/L Urine Color Urine Appearance Urine pH (5.0-9.0) Ur Specific Picher (1.005-1.025) Urine Protein (Neg-Trace) mg/dL Urine Glucose (UA) (Negative) mg/dL Urine Ketones (Negative) mg/dL Urine Blood (Negative) Urine Nitrite (Negative) Ur Leukocyte Esterase (Negative) Stool Occult Blood (NEGATIVE) Urine Opiates Screen (Not Detect) Urine Fentanyl Screen (Not Detect) Ur Barbiturates Screen (Not Detect) Ur Phencyclidine Scrn (Not Detect) Ur Amphetamines Screen (Not Detect) U Benzodiazepines Scrn (Not Detect) Urine Cocaine Screen (Not Detect) U Marijuana (THC) Screen (Not Detect) Ethyl Alcohol < 10 mg/dL <CARMEN Saenz - Last Filed: 12/01/22 07:23> Lab Results 11/30/22 11/30/22 11/30/22 Range/Units 12:38 12:38 12:38 WBC (4.8-10.8) X10*3/uL RBC (4.60-5.80) X10*6/uL Hgb (14.0-18.0) g/dl Hct (42.0-52.0) % MCV (80.0-98.0) fL MCH (27.0-33.0) pg MCHC (31.0-36.0) g/dl RDW (11.0-16.0) % Plt Count (160-400) X10*3/uL MPV (9.4-12.4) fL Immature Gran % (Auto) (0.0-0.4) % Neut % (Auto) (45-73) % Lymph % (Auto) (20-40) % [place] % (Auto) (2-11) % Eos % (Auto) (0-4) % Baso % (Auto) (0-2) % Lymph # (Auto) (1.2-4.9) X10*3/uL [place] # (Auto) (0.1-1.2) X10*3/uL Eos # (Auto) (0.0-0.4) X10*3/uL Baso # (Auto) (0.0-0.2) X10*3/uL Abs Immat Gran (auto) (0.00-0.03) X10*3/uL Absolute Neuts (auto) (2.0-8.3) x10*3/uL Absolute Nucleated RBC (0.0-0.012) X10*3/uL Nucleated RBC % (auto) (0.0-0.2) /100WBC Sodium (135-145) mmol/L Potassium (3.3-5.1) mmol/L Chloride (96-108) mmol/L Carbon Dioxide (22-29) mmol/L Anion Gap (12-20) BUN (9-16) mg/dL Creatinine (0.5-1.4) mg/dL Estim Creat Clear Calc Estimated GFR Random Glucose (60-115) mg/dL Calcium (8.4-10.2) mg/dL Magnesium (1.6-2.6) mg/dL Total Bilirubin (0.0-1.0) mg/dL Direct Bilirubin (0.0-0.5) mg/dL AST (5-37) U/L ALT (0-40) U/L Alkaline Phosphatase (39-117) U/L Total Protein (6.5-8.0) g/dL Albumin (3.5-5.0) g/dL Lipase (8-78) U/L Urine Color Yellow Urine Appearance Clear Urine pH 7.5 (5.0-9.0) Ur Specific Picher <= 1.005 (1.005-1.025) Urine Protein Negative (Neg-Trace) mg/dL Urine Glucose (UA) Negative (Negative) mg/dL Urine Ketones Negative (Negative) mg/dL Urine Blood Negative (Negative) Urine Nitrite Negative (Negative) Ur Leukocyte Esterase Negative (Negative) Stool Occult Blood NEGATIVE (NEGATIVE) Urine Opiates Screen Not Detected (Not Detect) Urine Fentanyl Screen POSITIVE H (Not Detect) Ur Barbiturates Screen Not Detected (Not Detect) Ur Phencyclidine Scrn Not Detected (Not Detect) Ur Amphetamines Screen Not Detected (Not Detect) U Benzodiazepines Scrn Not Detected (Not Detect) Urine Cocaine Screen POSITIVE H (Not Detect) U Marijuana (THC) Screen Not Detected (Not Detect) Ethyl Alcohol mg/dL 11/30/22 11/30/22 Range/Units 12:46 14:13 WBC 3.3 L (4.8-10.8) X10*3/uL RBC 4.84 (4.60-5.80) X10*6/uL Hgb 15.1 (14.0-18.0) g/dl Hct 43.7 (42.0-52.0) % MCV 90.3 (80.0-98.0) fL MCH 31.2 (27.0-33.0) pg MCHC 34.6 (31.0-36.0) g/dl RDW 12.4 (11.0-16.0) % Plt Count 110 L D (160-400) X10*3/uL MPV 11.5 (9.4-12.4) fL Immature Gran % (Auto) 0.3 (0.0-0.4) % Neut % (Auto) 66.7 (45-73) % Lymph % (Auto) 24.3 (20-40) % [place] % (Auto) 6.9 (2-11) % Eos % (Auto) 1.5 (0-4) % Baso % (Auto) 0.3 (0-2) % Lymph # (Auto) 0.8 L (1.2-4.9) X10*3/uL [place] # (Auto) 0.2 (0.1-1.2) X10*3/uL Eos # (Auto) 0.1 (0.0-0.4) X10*3/uL Baso # (Auto) 0.0 (0.0-0.2) X10*3/uL Abs Immat Gran (auto) 0.01 (0.00-0.03) X10*3/uL Absolute Neuts (auto) 2.2 (2.0-8.3) x10*3/uL Absolute Nucleated RBC 0.000 (0.0-0.012) X10*3/uL Nucleated RBC % (auto) 0.0 (0.0-0.2) /100WBC Sodium 137 (135-145) mmol/L Potassium 3.7 (3.3-5.1) mmol/L Chloride 105 (96-108) mmol/L Carbon Dioxide 27 (22-29) mmol/L Anion Gap 9 L (12-20) BUN 5 L (9-16) mg/dL Creatinine 0.67 (0.5-1.4) mg/dL Estim Creat Clear Calc 102.3 Estimated GFR > 60 Random Glucose 115 (60-115) mg/dL Calcium 8.3 L D (8.4-10.2) mg/dL Magnesium 1.9 (1.6-2.6) mg/dL Total Bilirubin 1.4 H (0.0-1.0) mg/dL Direct Bilirubin 0.4 (0.0-0.5) mg/dL AST 68 H (5-37) U/L ALT 53 H (0-40) U/L Alkaline Phosphatase 108 (39-117) U/L Total Protein 6.5 (6.5-8.0) g/dL Albumin 3.1 L (3.5-5.0) g/dL Lipase 48 (8-78) U/L Urine Color Urine Appearance Urine pH (5.0-9.0) Ur Specific Picher (1.005-1.025) Urine Protein (Neg-Trace) mg/dL Urine Glucose (UA) (Negative) mg/dL Urine Ketones (Negative) mg/dL Urine Blood (Negative) Urine Nitrite (Negative) Ur Leukocyte Esterase (Negative) Stool Occult Blood (NEGATIVE) Urine Opiates Screen (Not Detect) Urine Fentanyl Screen (Not Detect) Ur Barbiturates Screen (Not Detect) Ur Phencyclidine Scrn (Not Detect) Ur Amphetamines Screen (Not Detect) U Benzodiazepines Scrn (Not Detect) Urine Cocaine Screen (Not Detect) U Marijuana (THC) Screen (Not Detect) Ethyl Alcohol < 10 mg/dL <Ihsan López - Last Filed: 11/30/22 18:20> Radiology Impression Discussion of test interpretation with radiology: I have reviewed the radiologist's reading. <CARMEN Saenz - Last Filed: 12/01/22 07:23> Radiologist Impression: EXAMINATION: XR CHEST CLINICAL INFORMATION: Cough COMPARISON: Chest radiograph 10/13/2019, CTA chest 02/04/2019. TECHNIQUE: 2 views of the chest were obtained. FINDINGS: The lungs are clear. There is no airspace consolidation or groundglass opacity or effusion. Small benign granuloma lateral apical right upper lobe is stable from CTA chest 2018. The costophrenic sulci are clear. The heart is normal in size. The hilar and mediastinal contours and visualized bony structures are unremarkable. XR/XR chest 2V IMPRESSION: Lungs clear. No acute intrathoracic disease. ? Dictated By: Bruce Guevara MD [place] [id number] Ultrasound Report Signed Patient: Rakan Phillips MR#: [id number] : 1955 Acct:[id number] Age/Sex: 67 / M ADM Date: 11/30/22 Loc: HO.ED Attending Dr: Ordering Physician: Susie Romo Date of Service: 11/30/22 Procedure(s): US abdomen limited Accession Number(s): [id number] cc: Susie Romo~ EXAMINATION: US ABDOMEN LIMITED CLINICAL INFORMATION: Right upper quadrant pain. COMPARISON: Previous CT February 2020 and ultrasound October 2008 TECHNIQUE: Real-time imaging of the right upper quadrant abdominal viscera. FINDINGS: PANCREAS: The head of the pancreas is normal. The body and tail are not well visualized due to bowel gas. LIVER: Liver echotexture is increased. The liver is slightly enlarged. The liver contour is normal. No focal hepatic lesion. There is no intrahepatic biliary duct dilatation seen. GALLBLADDER: Normal. The gallbladder is physiologically distended without evidence of stones, sludge, polyps, wall thickening or pericholecystic fluid. COMMON BILE DUCT: Normal in caliber measuring 0.3 cm in diameter. RIGHT KIDNEY: Normal. No hydronephrosis. No renal calculi or focal parenchymal lesions. The kidney measures 10.5 cm in maximum dimension. FREE FLUID: None. US/US abdomen limited IMPRESSION: Slightly enlarged echogenic liver probably representing fatty infiltration. Normal-appearing gallbladder. Limited visualization of the tail the pancreas. Dictated By: Billie Tsai MD <CARMEN Saenz - Last Filed: 12/01/22 07:23> External Record Review External record reviewed: Inpatient record, Office record, Outpatient record, Prior outpatient labs, Prior outpatient radiology, Primary care record and Outside ED record <CARMEN Saenz - Last Filed: 12/01/22 07:23> Upon medical chart review, patient was diagnosed with chronic myelogenous leukemia in 2018, seen by Dr. Latif on 10/22/2021. <CAREMN Saenz - Last Filed: 12/01/22 07:23> Chronic Conditions Patient?s care impacted by: Other (CML) <CARMEN Saenz - Last Filed: 12/01/22 07:23> Medications Administered Discontinued Medications Generic Name Dose Route Start Last Admin Trade Name Freq PRN Reason Stop Dose Admin Sodium Chloride 1,000 mls @ 999 mls/hr 11/30/22 12:31 11/30/22 16:14 Ns IVCONT 11/30/22 13:31 Infused .Q1H1M ONE Infusion Iohexol 100 ml 11/30/22 16:34 11/30/22 16:34 Iohexol 350 Mg/Ml 100 Ml Infus..Btl IV 11/30/22 16:35 85 ml ONCE ONE Administration Ketorolac Tromethamine 30 mg 11/30/22 14:21 11/30/22 14:28 Ketorolac Tromethamine 30 Mg/Ml Vial IVPUSH 11/30/22 14:22 30 mg ONCE ONE Administration Ondansetron HCl 4 mg 11/30/22 12:31 11/30/22 13:06 Ondansetron Hcl 4 Mg/2 Ml Vial IVPUSH 11/30/22 12:32 4 mg ONCE ONE Administration <CARMEN Saenz - Last Filed: 12/01/22 07:23> Medications Administered Discontinued Medications Generic Name Dose Route Start Last Admin Trade Name Freq PRN Reason Stop Dose Admin Sodium Chloride 1,000 mls @ 999 mls/hr 11/30/22 12:31 11/30/22 16:14 Ns IVCONT 11/30/22 13:31 Infused .Q1H1M ONE Infusion Iohexol 100 ml 11/30/22 16:34 11/30/22 16:34 Iohexol 350 Mg/Ml 100 Ml Infus..Btl IV 11/30/22 16:35 85 ml ONCE ONE Administration Ketorolac Tromethamine 30 mg 11/30/22 14:21 11/30/22 14:28 Ketorolac Tromethamine 30 Mg/Ml Vial IVPUSH 11/30/22 14:22 30 mg ONCE ONE Administration Ondansetron HCl 4 mg 11/30/22 12:31 11/30/22 13:06 Ondansetron Hcl 4 Mg/2 Ml Vial IVPUSH 11/30/22 12:32 4 mg ONCE ONE Administration <Ihsan López - Last Filed: 11/30/22 18:20> Discharge Plan Discharge Clinical Impression: Abdominal pain <CARMEN Saenz - Last Filed: 12/01/22 07:23> Patient Disposition: Home, Self-Care <CARMEN Saenz - Last Filed: 12/01/22 07:23> Instructions: Abdominal Pain (ED) <CARMEN Saenz - Last Filed: 12/01/22 07:23> Additional Instructions: Your ultrasound showed Slightly enlarged echogenic liver probably representing fatty infiltration. Normal-appearing gallbladder. Please drink plenty of fluids and get plenty of rest. If any new or worsening symptoms occur, please return for re-evaluation. You may use Zofran for any further nausea or vomiting Return for new or worsening symptoms, especially if you develop a fever <CARMEN Saenz - Last Filed: 12/01/22 07:23> Prescriptions: New ondansetron 4 mg tablet,disintegrating 4 mg PO Q8H PRN (Reason: nausea and vomiting) Qty: 20 0RF No Action atorvastatin 80 mg tablet 1 tab PO BEDTIME metoprolol succinate 50 mg tablet extended release 24 hr 1 tab PO DAILY chlorthalidone 25 mg tablet 1 tab PO DAILY omeprazole 40 mg capsule,delayed release(DR/EC) 1 cap PO DAILY amlodipine 10 mg tablet 1 tab PO DAILY losartan 100 mg tablet 1 tab PO DAILY Tasigna 150 mg capsule 2 cap PO BID Qty: 120 6RF famotidine 40 mg tablet 0.5 tab PO DAILY Qty: 30 6RF ondansetron 4 mg tablet,disintegrating 4 mg PO Q6-8H PRN (Reason: nausea and vomiting) Qty: 14 0RF <CARMEN Saenz - Last Filed: 12/01/22 07:23> Interventions: ED Discharge Assessment Last Done: 11/30/22 18:47 <CARMEN Saenz - Last Filed: 12/01/22 07:23> Discharge Date/Time: 11/30/22 18:48 <CARMEN Saenz - Last Filed: 12/01/22 07:23> Print Language: Ethiopian <CARMEN Saenz - Last Filed: 12/01/22 07:23>
[2022-11-30 12:48] LABS: OBS1 NEGATIVE (NEGATIVE)
[2022-11-30 12:50] LABS: MANUAL DIFF FLAG NO
[2022-11-30 12:51] LABS: Appearance Urine Clear; Color Urine Yellow; Glucose Urine UA Negative (Negative); Leukocyte Esterase Urine Negative (Negative); Nitrite Urine Negative (Negative); PH 7.5 (5.0-9.0); Specific Gravity - Urine <= 1.005 (1.005-1.025); Urine Blood Negative (Negative); Urine Ketones Negative (Negative); Urine Protein Negative (Neg-Trace)
[2022-11-30 12:54] LABS: Basophils Percent Auto 0.3 % (0-2); Eosinophils Absolute Auto 0.1 X10*3/uL (0.0-0.4); Eosinophils Percent Auto 1.5 % (0-4); Hematocrit 43.7 % (42.0-52.0); Hemoglobin 15.1 g/dl (14.0-18.0); Imm Gran Abs Auto 0.01 X10*3/uL (0.00-0.03); Imm Gran Pct Auto 0.3 % (0.0-0.4); Lymphocytes Absolute Auto 0.8 X10*3/uL (1.2-4.9); Lymphocytes Percent Auto 24.3 % (20-40); Mean Corpuscular HGB Conc 34.6 g/dl (31.0-36.0); Mean Corpuscular Hemoglobin 31.2 pg (27.0-33.0); Mean Corpuscular Volume 90.3 fL (80.0-98.0); Mean Platelet Volume 11.5 fL (9.4-12.4); Monocytes Absolute Auto 0.2 X10*3/uL (0.1-1.2); Monocytes Percent Auto 6.9 % (2-11); Neutrophils Absolute Auto 2.2 x10*3/uL (2.0-8.3); Neutrophils Percent Auto 66.7 % (45-73); Red Blood Count 4.84 X10*6/uL (4.60-5.80); Red Cell Distribution Width 12.4 % (11.0-16.0); White Blood Count 3.3 X10*3/uL (4.8-10.8)
[2022-11-30 12:56] LABS: OBS Int Ctl Valid YES
[2022-11-30] MEDS: ondansetron HCL 4 MG/2 ML VIAL IVPUSH (13:06)
[2022-11-30] MEDS: 0.9 % Sodium Chloride 1,000 ML 999 ML IVCONT (13:06)
[2022-11-30 13:08] LABS: Amphetamine Screen Urine Not Detected (Not Detect); Barbiturates, Urine Not Detected (Not Detect); Benzodiazepines Screen Urine Not Detected (Not Detect); Cannabinoid Screen Urine Not Detected (Not Detect); Cocaine Screen Urine POSITIVE (Not Detect); Fentanyl, urine POSITIVE (Not Detect); Opiate Screen Urine Not Detected (Not Detect); Phencyclidine Screen Urine Not Detected (Not Detect)
[2022-11-30 13:13] LABS: Platelet Count 110 X10*3/uL (160-400)
[2022-11-30 14:08] VITALS: BP 165/85; PULSE 77; RESP 16; O2SAT 98
[2022-11-30] MEDS: Ketorolac Tromethamine 30 MG/ML VIAL IVPUSH (14:28)
[2022-11-30 14:49] LABS: Alanine Aminotransferase 53 U/L (0-40); Albumin Level 3.1 g/dL (3.5-5.0); Alkaline Phosphatase 108 U/L (39-117); Anion Gap 9 (12-20); Aspartate Amino Transferase 68 U/L (5-37); Bilirubin Direct 0.4 mg/dL (0.0-0.5); Bilirubin Total 1.4 mg/dL (0.0-1.0); Blood Urea Nitrogen 5 mg/dL (9-16); Calcium 8.3 mg/dL (8.4-10.2); Carbon Dioxide 27 mmol/L (22-29); Chloride 105 mmol/L (96-108); Creatinine Clr Calc Pharmacy 102.3; Estimated Glomerular Filt Rate > 60; Ethanol < 10 mg/dL; Glucose Random 115 mg/dL (60-115); Lipase 48 U/L (8-78); Magnesium 1.9 mg/dL (1.6-2.6); Potassium 3.7 mmol/L (3.3-5.1); Sodium 137 mmol/L (135-145); Total Protein 6.5 g/dL (6.5-8.0)
[2022-11-30] MEDS: iohexoL 350 MG/ML 100 ML INFUS..BTL IV (16:34)
== END 2022-11-30 18:48 | disposition home or self-care (01) ==
PROVIDERS: Physician Assistant Medical; Emergency Provider Emergency Medicine
DX: R10.11 Right upper quadrant pain (principal); R05.9 Cough, unspecified; R11.2 Nausea with vomiting, unspecified; R10.2 Pelvic and perineal pain; Z79.899 Other long term (current) drug therapy
CPT/HCPCS: 36415; 71046; 74177; 76705; 80048; 80076; 80307; 81003; 82077; 82272; 83690; 83735; 85025; 96361; 96374; 96375; 99284; J1885; J2405; Q9967

== ENCOUNTER 2023-08-31 22:37 | Emergency (ER) | payer OTHER, SELFPAY ==
--- NOTE | ~2023-08-31 | CT_ITS ---
EXAMINATION: CT ABDOMEN AND PELVIS WITH CONTRAST CLINICAL INFORMATION: Right upper quadrant epigastric pain COMPARISON: 11/30/2022 TECHNIQUE: Multidetector volumetric images were obtained from the superior aspect of the liver through the pubic symphysis following administration 85 mL of Omnipaque 350 intravenous contrast. Sagittal and coronal reformatted images were obtained on the technologist's workstation. Oral contrast: No This CT examination was performed using dose optimization techniques as appropriate, variously including the following: *Automated exposure control *Adjustment of mA and/or kV according to patient size (this includes techniques or standardized protocols for targeted exams where dose is matched to indication/reason for exam; i.e. extremities or head) *Use of iterative reconstruction technique DLP: 328 mGy-cm FINDINGS: LUNG BASES: The visualized lung bases are unremarkable. Coronary artery calcifications are present. LIVER, GALLBLADDER, AND BILIARY TREE: The liver demonstrates mildly heterogeneous hypoattenuation suggesting steatosis. No focal hepatic lesion or biliary ductal dilatation is present. The gallbladder is unremarkable with no evidence of radiopaque gallstones, gallbladder wall thickening, or obvious pericholecystic inflammatory changes. PANCREAS: Unremarkable. SPLEEN: Unremarkable. ADRENAL GLANDS: Unremarkable. KIDNEYS AND URETERS: Bilateral nephrograms are symmetric. No hydronephrosis or obstructing calculus identified. Small hypoattenuating bilateral renal lesions favor cysts; no follow-up recommended. BLADDER: Mildly distended and grossly unremarkable. GASTROINTESTINAL TRACT: No evidence of bowel obstruction or significant wall thickening. The appendix is unremarkable. No free fluid or free air is seen. ABDOMINAL WALL: No significant hernia is appreciated. LYMPH NODES: Normal. VASCULAR: There is atherosclerotic calcification along the aorta and iliac arteries. PELVIC VISCERA: Unremarkable. OSSEOUS STRUCTURES: Scattered degenerative changes in the spine. CT/CT abdomen pelvis w IV con IMPRESSION: 1. No acute findings identified in the abdomen/pelvis. 2. Coronary artery calcifications. Correlation with cardiac risk factors is recommended.
[2023-08-31 22:41] VITALS: BP 110/58; PULSE 82; O2SAT 95
[2023-08-31 22:54] VITALS: BP 156/85; PULSE 79; RESP 18; TEMP 36.4; O2SAT 97; BMI 27.4
[2023-08-31 23:15] LABS: MANUAL DIFF FLAG NO
[2023-08-31 23:16] LABS: Basophils Absolute Auto 0.1 X10*3/uL (0.0-0.2); Eosinophils Absolute Auto 0.3 X10*3/uL (0.0-0.4); Eosinophils Percent Auto 3.6 % (0-4); Hematocrit 39.5 % (42.0-52.0); Hemoglobin 14.8 g/dl (14.0-18.0); Imm Gran Abs Auto 0.01 X10*3/uL (0.00-0.03); Imm Gran Pct Auto 0.1 % (0.0-0.4); Lymphocytes Absolute Auto 1.9 X10*3/uL (1.2-4.9); Lymphocytes Percent Auto 26.4 % (20-40); Mean Corpuscular HGB Conc 37.5 g/dl (31.0-36.0); Mean Corpuscular Hemoglobin 31.8 pg (27.0-33.0); Mean Corpuscular Volume 84.9 fL (80.0-98.0); Mean Platelet Volume 11.3 fL (9.4-12.4); Monocytes Absolute Auto 0.6 X10*3/uL (0.1-1.2); Monocytes Percent Auto 8.1 % (2-11); Neutrophils Absolute Auto 4.3 x10*3/uL (2.0-8.3); Neutrophils Percent Auto 60.8 % (45-73); Platelet Count 211 X10*3/uL (160-400); Red Blood Count 4.65 X10*6/uL (4.60-5.80); Red Cell Distribution Width 12.2 % (11.0-16.0)
[2023-08-31 23:30] LABS: COVID-19 Test Negative (Negative); IDNOW Serial# 6674DD1D
[2023-08-31 23:34] LABS: Alanine Aminotransferase 42 U/L (0-40); Albumin Level 3.9 g/dL (3.5-5.0); Alkaline Phosphatase 116 U/L (39-117); Anion Gap 16 (12-20); Aspartate Amino Transferase 46 U/L (5-37); Bilirubin Direct 0.3 mg/dL (0.0-0.5); Bilirubin Total 0.7 mg/dL (0.0-1.0); Blood Urea Nitrogen 11 mg/dL (9-16); Calcium 9.2 mg/dL (8.4-10.2); Carbon Dioxide 23 mmol/L (22-29); Chloride 90 mmol/L (96-108); Creatinine Clr Calc Pharmacy 67.3; Estimated Glomerular Filt Rate > 60; Glucose Random 135 mg/dL (60-115); Lipase 43 U/L (8-78); Potassium 2.9 mmol/L (3.3-5.1); Sodium 126 mmol/L (135-145); Total Protein 8.4 g/dL (6.5-8.0)
--- NOTE | 2023-09-01 00:14 | ED_ITS ---
HPI - Abdominal Pain General Chief Complaint: Abdominal Pain Stated Complaint: abd pain n/v Time Seen by Provider: 08/31/23 23:44 Related Data Home Medications Medication Instructions Recorded Confirmed amlodipine 10 mg tablet 1 tab PO DAILY 07/30/20 03/27/23 atorvastatin 80 mg tablet 1 tab PO BEDTIME 07/30/20 03/27/23 chlorthalidone 25 mg tablet 2 tab PO DAILY 07/30/20 03/27/23 losartan 100 mg tablet 1 tab PO DAILY 07/30/20 03/27/23 metoprolol succinate 50 mg 1 tab PO DAILY 07/30/20 03/27/23 tablet,extended release 24 hr Previous Rx's Medication Instructions Recorded nilotinib 150 mg capsule (Tasigna) 2 cap PO BID #120 caps 08/13/21 famotidine 40 mg tablet 0.5 tab PO DAILY #30 tabs 09/02/22 ondansetron 4 mg disintegrating 4 mg PO Q8H PRN nausea and 11/30/22 tablet vomiting #20 tabs omeprazole 40 mg capsule,delayed 1 cap PO DAILY 04/13/23 release omeprazole 40 mg capsule,delayed 40 mg PO DAILY #90 caps 05/08/23 release Allergies Allergy/AdvReac Type Severity Reaction Status Date / Time No Known Allergies Allergy Unknown Verified 07/30/20 14:22 [facility] Past Medical History Medical History Arthritis Chronic myelogenous leukemia Chronic neck pain Depression Fatty liver History of alcohol abuse Hypercholesteremia Hypertension Osteoarthritis Surgical History History of prostate surgery Family History Family History Mother Diabetes Father Heart problem Liver cancer Brother Prostate CA Family/Other Breast cancer Paternal Aunt Metastatic cancer Social History Social History Household Members: Significant Other Housing: Apartment Alcohol intake: current Alcohol intake frequency: a few times a week Patient Tobacco Use Status: Never used Tobacco Advance Directives: No Advance Directives Information Provided: Yes service: No Current occupational status: disabled Physical Exam ED Vital Signs: Vital Signs - 24 hr 08/31/23 22:54 Temperature 97.6 F Pulse Rate 79 Respiratory Rate 18 Blood Pressure 156/85 H Pulse Oximetry 97 Oxygen Delivery Method Room Air BMI result Body Mass Index 27.4 Medical Decision Making Medical Decision Making [facility] Narrative: -my interpretation of CT scan of the abdomen: No obvious abnormality, no SBO -my interpretation of labs: Normal hematology, chemistry shows hyponatremia of 126, hypokalemia of 2.9. Patient being repleted with IV fluids. We will attempt repleted p.o. potassium. If patient vomits, he will need IV potassium piggie bags. -after rehydration, we will recheck sodium and potassium levels again at 230 am -sign out given to Dr. Landin Differential Diagnosis Differential Diagnoses: The differential diagnosis associated with the presentation includes (Pancreatitis, cholecystitis, perforation your viral syndrome) Admission/Observation Consideration of admission/observation: Escalation of care including admission/observation considered (Given patient's severity of syndrome and labs, admission was considered) Lab Data [facility] Lab Attestation statement: I reviewed the patient's lab results. 08/31/23 23:09 08/31/23 23:09 Labs: Lab Results 08/31/23 Range/Units 23:09 WBC 7.0 (4.8-10.8) X10*3/uL RBC 4.65 (4.60-5.80) X10*6/uL Hgb 14.8 (14.0-18.0) g/dl Hct 39.5 L (42.0-52.0) % MCV 84.9 (80.0-98.0) fL MCH 31.8 (27.0-33.0) pg MCHC 37.5 H (31.0-36.0) g/dl RDW 12.2 (11.0-16.0) % Plt Count 211 (160-400) X10*3/uL MPV 11.3 (9.4-12.4) fL Immature Gran % (Auto) 0.1 (0.0-0.4) % Neut % (Auto) 60.8 (45-73) % Lymph % (Auto) 26.4 (20-40) % Winkler % (Auto) 8.1 (2-11) % Eos % (Auto) 3.6 (0-4) % Baso % (Auto) 1.0 (0-2) % Lymph # (Auto) 1.9 (1.2-4.9) X10*3/uL Winkler # (Auto) 0.6 (0.1-1.2) X10*3/uL Eos # (Auto) 0.3 (0.0-0.4) X10*3/uL Baso # (Auto) 0.1 (0.0-0.2) X10*3/uL Abs Immat Gran (auto) 0.01 (0.00-0.03) X10*3/uL Absolute Neuts (auto) 4.3 (2.0-8.3) x10*3/uL Absolute Nucleated RBC 0.000 (0.0-0.012) X10*3/uL Nucleated RBC % (auto) 0.0 (0.0-0.2) /100WBC Sodium 126 L (135-145) mmol/L Potassium 2.9 L* (3.3-5.1) mmol/L Chloride 90 L (96-108) mmol/L Carbon Dioxide 23 (22-29) mmol/L Anion Gap 16 (12-20) BUN 11 (9-16) mg/dL Creatinine 1.04 (0.5-1.4) mg/dL Estim Creat Clear Calc 67.3 Estimated GFR > 60 Random Glucose 135 H (60-115) mg/dL Calcium 9.2 (8.4-10.2) mg/dL Total Bilirubin 0.7 (0.0-1.0) mg/dL Direct Bilirubin 0.3 (0.0-0.5) mg/dL AST 46 H (5-37) U/L ALT 42 H (0-40) U/L Alkaline Phosphatase 116 (39-117) U/L Total Protein 8.4 H (6.5-8.0) g/dL Albumin 3.9 (3.5-5.0) g/dL Lipase 43 (8-78) U/L COVID-19 (MARNIE) Negative (Negative) COVID-19 Clin Com See Note Independent Interpretation I performed an independent interpretation of an: CT Scan Radiology Impression Discussion of test interpretation with radiology: I have reviewed the radiologist's reading. Radiologist Impression: No acute fracture or dislocation of the left shoulder. Mild acromioclavicular joint osteoarthritis. Well-corticated osseous structure at the greater tuberosity, likely representing rotator cuff tendinopathy. There is no associated discontinuity to suggest an avulsion fracture. Soft tissue structures are within normal limits. XR/XR shoulder LT min 2V IMPRESSION: 1. No acute fractures or dislocations of the left shoulder. 2. Rotator cuff calcification suggesting tendinopathy. If clinically indicated, nonemergent MRI of the shoulder may be performed to determine exact pathology of the rotator cuff tendons. Medications Administered Discontinued Medications Generic Name Dose Route Start Last Admin Trade Name Frerosemarie PRN Reason Stop Dose Admin Sodium Chloride 1,000 mls @ 999 mls/hr 09/01/23 00:09 09/01/23 00:17 Ns IVCONT 09/01/23 01:09 999 mls/hr .Q1H1M ONE Administration Iohexol 85 ml 09/01/23 00:40 09/01/23 00:41 Iohexol 350 Mg/Ml 100 Ml Infus..Btl IV 09/01/23 00:41 85 ml ONCE ONE Administration Morphine Sulfate 4 mg 09/01/23 00:09 09/01/23 01:39 Morphine Sulfate 4 Mg/Ml Cartridge IVPUSH 09/01/23 00:10 4 mg ONCE ONE Administration Protocol Ondansetron HCl 4 mg 09/01/23 00:09 09/01/23 01:39 Ondansetron Hcl 4 Mg/2 Ml Vial IVPUSH 09/01/23 00:10 4 mg ONCE ONE Administration Critical Care Time Critical Care Time Critical Care Time: Yes Total Critical Care Time: 60 Attestation: I have personally provided critical care time. Time includes review of lab data, radiology results, discussion with consultants, and monitoring for potential decompensation. Intervention performed as documented. Discharge Plan Discharge Clinical Impression: Abdominal pain, Acute hyponatremia, Acute hypokalemia Patient Disposition: Still a Patient Prescriptions: No Action omeprazole 40 mg capsule,delayed release(DR/EC) 1 cap PO DAILY 2RF atorvastatin 80 mg tablet 1 tab PO BEDTIME metoprolol succinate 50 mg tablet extended release 24 hr 1 tab PO DAILY chlorthalidone 25 mg tablet 2 tab PO DAILY amlodipine 10 mg tablet 1 tab PO DAILY losartan 100 mg tablet 1 tab PO DAILY Tasigna 150 mg capsule 2 cap PO BID Qty: 120 6RF famotidine 40 mg tablet 0.5 tab PO DAILY Qty: 30 6RF omeprazole 40 mg Capsule,Delayed Release(Dr/Ec) 40 mg PO DAILY Qty: 90 3RF ondansetron 4 mg tablet,disintegrating 4 mg PO Q8H PRN (Reason: nausea and vomiting) Qty: 20 0RF
[2023-09-01] MEDS: 0.9 % Sodium Chloride 1,000 ML 999 ML IVCONT (00:17)
[2023-09-01] MEDS: iohexoL 350 MG/ML 100 ML INFUS..BTL 85 ML IV (00:41)
[2023-09-01] MEDS: ondansetron HCL 4 MG/2 ML VIAL IVPUSH (01:39)
[2023-09-01] MEDS: Morphine Sulfate 4 MG/ML CARTRIDGE IVPUSH (01:39)
[2023-09-01 01:43] VITALS: BP 97/52; PULSE 70; RESP 14; TEMP 36.6; O2SAT 96
[2023-09-01] MEDS: Potassium Chloride Packet 20 MEQ PACKET 60 MEQ PO (02:13)
[2023-09-01 02:17] LABS: IDNOW Serial# 08D9AD1C; Influenza A Negative (Negative); Influenza B2 Negative (Negative)
[2023-09-01 04:21] LABS: Anion Gap 14 (12-20); Blood Urea Nitrogen 9 mg/dL (9-16); Calcium 8.6 mg/dL (8.4-10.2); Carbon Dioxide 25 mmol/L (22-29); Chloride 96 mmol/L (96-108); Estimated Glomerular Filt Rate > 60; Glucose Random 110 mg/dL (60-115); Sodium 131 mmol/L (135-145)
[2023-09-01 05:50] VITALS: BP 99/62; PULSE 63; RESP 14; O2SAT 98
== END 2023-09-01 05:51 | disposition home or self-care (01) ==
PROVIDERS: Emergency Provider Emergency Medicine
DX: R10.9 Unspecified abdominal pain (principal); E87.1 Hypo-osmolality and hyponatremia; E87.6 Hypokalemia; Z11.52 Encounter for screening for COVID-19; I10 Essential (primary) hypertension; E78.00 Pure hypercholesterolemia, unspecified; Z79.02 Long term (current) use of antithrombotics/antiplatelets; Z79.899 Other long term (current) drug therapy
CPT/HCPCS: 36415; 74177; 80048; 80053; 82248; 83690; 85025; 87502; 87635; 96361; 96374; 96375; 99284; J2270; J2405; Q9967

== ENCOUNTER 2023-09-22 15:08 | Emergency (ER) | payer OTHER, SELFPAY ==
--- NOTE | ~2023-09-22 | US_ITS ---
EXAMINATION: US ABDOMEN LIMITED CLINICAL INFORMATION: Right upper quadrant pain. COMPARISON: CT abdomen pelvis dated 09/01/2023. TECHNIQUE: Real-time imaging of the right upper quadrant abdominal viscera. FINDINGS: PANCREAS: Normal. LIVER: The liver is normal in size. The liver contour is normal. Liver echogenicity is increased and coarsened. No focal hepatic lesion. There is no intrahepatic biliary duct dilatation seen. GALLBLADDER: Normal. The gallbladder is physiologically distended without evidence of stones, sludge, polyps, wall thickening or pericholecystic fluid. COMMON BILE DUCT: Normal in caliber measuring 0.4 cm in diameter. RIGHT KIDNEY: No hydronephrosis. No renal calculi or focal parenchymal lesions. The kidney measures 11.8 cm in maximum dimension. 2 small cysts measuring 0.6 and 0.5 cm are identified within the right kidney. FREE FLUID: None. US/US abdomen limited IMPRESSION: Normal appearance of the gallbladder. The liver is steatotic.
--- NOTE | 2023-09-22 15:19 | ECG_ITS ---
Test Reason : WEAKNESS Blood Pressure : / mmHG Vent. Rate : 083 BPM Atrial Rate : 083 BPM P-R Int : 146 ms QRS Dur : 084 ms QT Int : 386 ms P-R-T Axes : -02 -23 -07 degrees QTc Int : 453 ms Normal sinus rhythm Minimal voltage criteria for LVH, may be normal variant ( R in aVL ) Borderline ECG No previous ECGs available Referred By: May Penny Electronically Signed By:
[2023-09-22 15:26] VITALS: BP 144/85; BP 158/94; PULSE 89; PULSE 92; RESP 18; TEMP 36.7; O2SAT 97; O2SAT 98; BMI 26.9
[2023-09-22 15:27] LABS: Glucose, Whole Blood 120 mg/dL (60-115)
[2023-09-22 15:55] LABS: MANUAL DIFF FLAG NO
[2023-09-22 15:56] LABS: Basophils Percent Auto 0.7 % (0-2); Eosinophils Absolute Auto 0.1 X10*3/uL (0.0-0.4); Eosinophils Percent Auto 1.7 % (0-4); Hematocrit 40.5 % (42.0-52.0); Hemoglobin 14.6 g/dl (14.0-18.0); Imm Gran Abs Auto 0.01 X10*3/uL (0.00-0.03); Imm Gran Pct Auto 0.2 % (0.0-0.4); Lymphocytes Absolute Auto 1.3 X10*3/uL (1.2-4.9); Lymphocytes Percent Auto 22.6 % (20-40); Mean Corpuscular Hemoglobin 31.3 pg (27.0-33.0); Mean Corpuscular Volume 86.9 fL (80.0-98.0); Mean Platelet Volume 10.6 fL (9.4-12.4); Monocytes Absolute Auto 0.4 X10*3/uL (0.1-1.2); Monocytes Percent Auto 6.1 % (2-11); Neutrophils Percent Auto 68.7 % (45-73); Platelet Count 167 X10*3/uL (160-400); Red Blood Count 4.66 X10*6/uL (4.60-5.80); Red Cell Distribution Width 12.9 % (11.0-16.0); White Blood Count 5.9 X10*3/uL (4.8-10.8)
[2023-09-22 16:08] LABS: Ethanol 85 mg/dL
[2023-09-22 16:12] VITALS: BP 153/88; PULSE 87; RESP 18; TEMP 36.6; O2SAT 97
[2023-09-22 16:12] LABS: Alanine Aminotransferase 63 U/L (0-40); Albumin Level 3.6 g/dL (3.5-5.0); Alkaline Phosphatase 123 U/L (39-117); Anion Gap 11 (12-20); Aspartate Amino Transferase 83 U/L (5-37); Bilirubin Direct 0.4 mg/dL (0.0-0.5); Bilirubin Total 1.1 mg/dL (0.0-1.0); Blood Urea Nitrogen 3 mg/dL (9-16); Calcium 8.3 mg/dL (8.4-10.2); Carbon Dioxide 26 mmol/L (22-29); Chloride 96 mmol/L (96-108); Creatinine Clr Calc Pharmacy 82.9; Estimated Glomerular Filt Rate > 60; Glucose Random 116 mg/dL (60-115); Lipase 29 U/L (8-78); Magnesium 1.8 mg/dL (1.6-2.6); Potassium 3.3 mmol/L (3.3-5.1); Sodium 130 mmol/L (135-145); Total Protein 8.2 g/dL (6.5-8.0)
[2023-09-22 16:12] LABS: Appearance Urine Clear; Color Urine Yellow; Glucose Urine UA Negative (Negative); Leukocyte Esterase Urine Negative (Negative); Nitrite Urine Negative (Negative); PH 7.5 (5.0-9.0); Specific Gravity - Urine <= 1.005 (1.005-1.025); Urine Blood Negative (Negative); Urine Ketones Negative (Negative); Urine Protein Negative (Neg-Trace)
[2023-09-22] MEDS: 0.9 % Sodium Chloride 1,000 ML 999 ML IVCONT (16:12)
[2023-09-22] MEDS: ondansetron HCL 4 MG/2 ML VIAL IVPUSH (16:15)
--- NOTE | 2023-09-22 16:19 | PC.NURSE ---
pt presents to ED via EMS for N/V and epigastric pain. pt alert and oriented, breathing even and unlabored, skin warm and dry. pt reports epigastric burning and aching pain, 7/10, for few days . pt also reports chills and general malaise. pt denies diarrhea, CP, SOB. IV established in right AC 20G. pt medicated per OCT. pt resting in bed at this time, vss.
[2023-09-22 16:21] LABS: Troponin-I High Sensitivity < 2.7 ng/L (<3.5-35.0)
[2023-09-22 16:25] LABS: IDNOW Serial# 58CA691E
[2023-09-22 16:26] LABS: COVID-19 Test Negative (Negative); IDNOW Serial# 08D9AD1C; Influenza A Negative (Negative); Influenza B2 Negative (Negative)
--- NOTE | 2023-09-22 16:29 | ED.ABDPAIN ---
HPI - Abdominal Pain General Chief Complaint: Abdominal Pain Stated Complaint: N/V, WEAKNESS X3DAYS, ABD PAIN 02/13 Time Seen by Provider: 09/22/23 15:14 Source: patient Mode of arrival: ambulatory Limitations: no limitations History of Present Illness HPI narrative: Patient comes to the emergency room complaining of nausea vomiting for 3 days. Complaining of mild abdominal discomfort. Patient initially denied drinking alcohol. However, shortly after patient admited that he has been drinking alcohol. Patient states that he only drinks when he hangs out with his friends which is almost every day, prior to arrival to the emergency room in the morning, patient had several beers and nips. Patient denies vomiting blood, no black stool or blood in the stool. Related Data Home Medications Medication Instructions Recorded Confirmed amlodipine 10 mg tablet 1 tab PO DAILY 07/30/20 03/27/23 atorvastatin 80 mg tablet 1 tab PO BEDTIME 07/30/20 03/27/23 chlorthalidone 25 mg tablet 2 tab PO DAILY 07/30/20 03/27/23 losartan 100 mg tablet 1 tab PO DAILY 07/30/20 03/27/23 metoprolol succinate 50 mg 1 tab PO DAILY 07/30/20 03/27/23 tablet,extended release 24 hr Previous Rx's Medication Instructions Recorded nilotinib 150 mg capsule (Tasigna) 2 cap PO BID #120 caps 08/13/21 famotidine 40 mg tablet 0.5 tab PO DAILY #30 tabs 09/02/22 ondansetron 4 mg disintegrating 4 mg PO Q8H PRN nausea and 11/30/22 tablet vomiting #20 tabs omeprazole 40 mg capsule,delayed 1 cap PO DAILY 04/13/23 release omeprazole 40 mg capsule,delayed 40 mg PO DAILY #90 caps 05/08/23 release ondansetron 4 mg disintegrating 4 mg PO Q6-8H PRN nausea and 09/01/23 tablet vomiting #10 tabs hyoscyamine sulfate 0.125 mg tablet 0.125 mg PO QID PRN dyspepsia #7 09/22/23 tabs omeprazole 20 mg capsule,delayed 20 mg PO DAILY #30 caps 09/22/23 release ondansetron HCl 4 mg tablet 4 mg PO Q6H PRN nausea and 09/22/23 vomiting #10 tabs Allergies Allergy/AdvReac Type Severity Reaction Status Date / Time No Known Allergies Allergy Unverified 09/22/23 15:29 Review of Systems Review of Systems Constitutional : No Weight loss, No Fever, No Chills, No Night Sweats, No Fatigue, No Malaise ENT/Mouth : No Hearing loss, No Ear Pain, No Nasal Congestion, No Sinus Pain, No Hoarseness, No sore throat, No Rhinorrhea, No Swallowing Difficulty Eyes: No Eye Pain, No Swelling, No Redness, No Foreign Body, No Discharge, No Vision Changes Cardiovascular : No Chest Pain, No SOB, No Dyspnea on Exertion, No Orthopnea, No Edema, No Palpitations Respiratory : No Cough, No Sputum, No Wheezing, No Smoke Exposure, No Dyspnea Gastrointestinal : Complaining of nausea and vomiting, No Diarrhea, No Constipation, No abdominal Pain, No Hematochezia, No Melena Genitourinary : no irregular bleeding, No Dysuria, No Urinary Frequency, No Hematuria, No Urinary Incontinence, No Urgency, No Flank Pain, No Urinary Flow Changes, No Hesitancy Musculoskeletal : No joint pain, No Myalgias, No Joint Swelling Skin : No Skin Lesions, No rash Neuro : No Weakness, No Numbness, No Paresthesias, No Loss of Consciousness, No Dizziness, No Headache Psych : No Anxiety/Panic, No Depression, No SI/HI/AH/VH, admits to alcohol abuse Heme/Lymph: No Bruising, No Bleeding,No Lymphadenopathy Endocrine : No Polyuria, No Polydipsia, No Temperature Intolerance PMF Past Medical History Medical History Chronic myelogenous leukemia Arthritis Depression Chronic neck pain History of alcohol abuse Osteoarthritis Fatty liver Hypercholesteremia Hypertension Surgical History History of prostate surgery Family History Family History Mother Diabetes Father Heart problem Liver cancer Brother Prostate CA Family/Other Breast cancer Paternal Aunt Metastatic cancer Social History Social History Household Members: Significant Other Housing: Apartment Alcohol intake: current Alcohol intake frequency: a few times a week Alcohol type: hard liquor Patient Tobacco Use Status: Never used Tobacco Smoked in Last 30 Days: No Use of substances other than those prescribed or required for medical reasons: No Advance Directives: No Advance Directives Information Provided: Yes service: No Current occupational status: disabled Physical Exam ED Vital Signs: Vital Signs - 24 hr 09/22/23 15:26 09/22/23 16:12 09/22/23 18:09 Temperature 98.1 F 97.9 F Pulse Rate 89 87 95 Respiratory Rate 18 18 18 Blood Pressure 144/85 H 153/88 H 147/88 H Pulse Oximetry 97 97 96 Oxygen Delivery Method Room Air Room Air Room Air BMI result Body Mass Index 26.9 Const Other: Appearance: Alert. Oriented X3. No acute distress. Eyes: Pupils equal, round and reactive to light. ENT: Pharynx normal. Neck: Normal inspection. Neck supple. No lymph nodes noted. No crepitus CVS: Normal heart rate and rhythm. Pulses normal. Normal S1 and S2 Respiratory: No respiratory distress. Breath sounds normal. No Wheezing. No rales Abdomen: Soft mildly tender to palpation,. No rigidity. No distention. Actively vomiting Skin: Skin warm and dry. Normal skin color. Normal skin turgor. Extremities: No lower extremity edema. No Lacerations. No Rash Neuro: Oriented X 3. No motor deficit. No sensory deficit. Moving all extremities. No slurred speech. CN 2 through 12 grossly intact Psych: calm, cooperative, normal affect Medical Decision Making Medical Decision Making MDM Narrative: My interpretation of labs: Hematology at baseline, patient has hyponatremia, chronic, likely secondary to ETOH. Patient's LFTs slightly elevated. Patient has had elevation of LFTs in the past, likely secondary to ETOH versus fatty liver. Urinalysis negative for UTI alcohol positive. Patient tested negative for COVID and influenza -the ultrasound does not show cirrhosis. Normal gallbladder. Elevated LFTs likely secondary to hepatic liver versus chronic alcohol consumption. Sepsis not suspected -the mild abdominal pain/burning sensation likely secondary to gastritis, most likely alcoholic gastritis -patient has not vomiting for several days, patient was hydrated with IV fluids, given Zofran and Compazine. -patient's alcohol level was positive. Seems that patient is minimizing the amount of alcohol he drinks. Discussed with the patient the risks of drinking including cirrhosis, alcoholic gastritis, esophageal varices, ascites. Patient states that he is strong willed and will stop drinking from today. Patient respectfully declined cost recovery technician consult. -also, prior to discharge, patient started crying, anxious, states that he buys daily pills from someone in the street, does not know what he takes. Patient wants to stop using all the street medications and alcohol. Patient still declined care team/cost recovery technician, stating that he will accomplish polysubstance abuse by himself Differential Diagnosis Differential Diagnoses: The differential diagnosis associated with the presentation includes (Alcoholic gastritis, cholecystitis, pancreatitis) Admission/Observation Consideration of admission/observation: Escalation of care including admission/observation considered (Given patient's symptoms and history, admission was considered) Lab Data MDM Lab Attestation statement: I reviewed the patient's lab results. 09/22/23 15:49 09/22/23 15:49 Labs: Lab Results 09/22/23 09/22/23 09/22/23 Range/Units 15:24 15:49 15:59 WBC 5.9 (4.8-10.8) X10*3/uL RBC 4.66 (4.60-5.80) X10*6/uL Hgb 14.6 (14.0-18.0) g/dl Hct 40.5 L (42.0-52.0) % MCV 86.9 (80.0-98.0) fL MCH 31.3 (27.0-33.0) pg MCHC 36.0 (31.0-36.0) g/dl RDW 12.9 (11.0-16.0) % Plt Count 167 (160-400) X10*3/uL MPV 10.6 (9.4-12.4) fL Immature Gran % (Auto) 0.2 (0.0-0.4) % Neut % (Auto) 68.7 (45-73) % Lymph % (Auto) 22.6 (20-40) % [place] % (Auto) 6.1 (2-11) % Eos % (Auto) 1.7 (0-4) % Baso % (Auto) 0.7 (0-2) % Lymph # (Auto) 1.3 (1.2-4.9) X10*3/uL [place] # (Auto) 0.4 (0.1-1.2) X10*3/uL Eos # (Auto) 0.1 (0.0-0.4) X10*3/uL Baso # (Auto) 0.0 (0.0-0.2) X10*3/uL Abs Immat Gran (auto) 0.01 (0.00-0.03) X10*3/uL Absolute Neuts (auto) 4.0 (2.0-8.3) x10*3/uL Absolute Nucleated RBC 0.000 (0.0-0.012) X10*3/uL Nucleated RBC % (auto) 0.0 (0.0-0.2) /100WBC Sodium 130 L (135-145) mmol/L Potassium 3.3 (3.3-5.1) mmol/L Chloride 96 (96-108) mmol/L Carbon Dioxide 26 (22-29) mmol/L Anion Gap 11 L (12-20) BUN 3 L (9-16) mg/dL Creatinine 0.78 (0.5-1.4) mg/dL Estim Creat Clear Calc 82.9 Estimated GFR > 60 POC Glucose 120 H (60-115) mg/dL Random Glucose 116 H (60-115) mg/dL Calcium 8.3 L (8.4-10.2) mg/dL Magnesium 1.8 (1.6-2.6) mg/dL Total Bilirubin 1.1 H (0.0-1.0) mg/dL Direct Bilirubin 0.4 (0.0-0.5) mg/dL AST 83 H (5-37) U/L ALT 63 H (0-40) U/L Alkaline Phosphatase 123 H (39-117) U/L Troponin I High Sens < 2.7 (<3.5-35.0) ng/L Total Protein 8.2 H (6.5-8.0) g/dL Albumin 3.6 (3.5-5.0) g/dL Lipase 29 (8-78) U/L Urine Color Yellow Urine Appearance Clear Urine pH 7.5 (5.0-9.0) Ur Specific Chrisman <= 1.005 (1.005-1.025) Urine Protein Negative (Neg-Trace) mg/dL Urine Glucose (UA) Negative (Negative) mg/dL Urine Ketones Negative (Negative) mg/dL Urine Blood Negative (Negative) Urine Nitrite Negative (Negative) Ur Leukocyte Esterase Negative (Negative) Ethyl Alcohol 85 mg/dL COVID-19 (MARNIE) Negative (Negative) COVID-19 Clin Com See Note Influenza Type A (BASILIO) Negative (Negative) Influenza Type B (BASILIO) Negative (Negative) Influenza A & B Note See Note Independent Interpretation I performed an independent interpretation of an: Ultrasound (My interpretation of ultrasound: Normal gallbladder) Radiology Impression Discussion of test interpretation with radiology: I have reviewed the radiologist's reading. Radiologist Impression: FINDINGS: PANCREAS: Normal. LIVER: The liver is normal in size. The liver contour is normal. Liver echogenicity is increased and coarsened. No focal hepatic lesion. There is no intrahepatic biliary duct dilatation seen. GALLBLADDER: Normal. The gallbladder is physiologically distended without evidence of stones, sludge, polyps, wall thickening or pericholecystic fluid. COMMON BILE DUCT: Normal in caliber measuring 0.4 cm in diameter. RIGHT KIDNEY: No hydronephrosis. No renal calculi or focal parenchymal lesions. The kidney measures 11.8 cm in maximum dimension. 2 small cysts measuring 0.6 and 0.5 cm are identified within the right kidney. FREE FLUID: None. US/US abdomen limited IMPRESSION: Normal appearance of the gallbladder. The liver is steatotic. Medications Administered Discontinued Medications Generic Name Dose Route Start Last Admin Trade Name Freq PRN Reason Stop Dose Admin Sodium Chloride 1,000 mls @ 999 mls/hr 09/22/23 15:19 09/22/23 18:11 Ns IVCONT 09/22/23 16:19 Infused .Q1H1M ONE Infusion Ondansetron HCl 4 mg 09/22/23 15:19 09/22/23 16:15 Ondansetron Hcl 4 Mg/2 Ml Vial IVPUSH 09/22/23 15:20 4 mg ONCE ONE Administration Prochlorperazine Edisylate 10 mg 09/22/23 18:25 09/22/23 18:35 Prochlorperazine Edisylate 10 Mg/2 Ml Vial IVPUSH 09/22/23 18:26 10 mg ONCE ONE Administration Critical Care Time Critical Care Time Critical Care Time: Yes Total Critical Care Time: 60 Attestation: I have personally provided critical care time. Time includes review of lab data, radiology results, discussion with consultants, and monitoring for potential decompensation. Intervention performed as documented. Discharge Plan Discharge Clinical Impression: Nausea & vomiting, Gastritis Patient Disposition: Home, Self-Care Instructions: Gastritis (ED), Acute Nausea and Vomiting (ED), Acute Abdominal Pain (ED) Additional Instructions: Please follow-up with your primary care physician tomorrow. If you have any worsening or new symptoms, please return to the emergency room or call 911 Prescriptions: New hyoscyamine sulfate 0.125 mg tablet 0.125 mg PO QID PRN (Reason: dyspepsia) Qty: 7 0RF omeprazole 20 mg capsule,delayed release(DR/EC) 20 mg PO DAILY Qty: 30 2RF ondansetron HCl 4 mg tablet 4 mg PO Q6H PRN (Reason: nausea and vomiting) Qty: 10 0RF No Action omeprazole 40 mg capsule,delayed release(DR/EC) 1 cap PO DAILY 2RF atorvastatin 80 mg tablet 1 tab PO BEDTIME metoprolol succinate 50 mg tablet extended release 24 hr 1 tab PO DAILY chlorthalidone 25 mg tablet 2 tab PO DAILY amlodipine 10 mg tablet 1 tab PO DAILY losartan 100 mg tablet 1 tab PO DAILY Tasigna 150 mg capsule 2 cap PO BID Qty: 120 6RF famotidine 40 mg tablet 0.5 tab PO DAILY Qty: 30 6RF omeprazole 40 mg Capsule,Delayed Release(Dr/Ec) 40 mg PO DAILY Qty: 90 3RF ondansetron 4 mg tablet,disintegrating 4 mg PO Q6-8H PRN (Reason: nausea and vomiting) Qty: 10 0RF ondansetron 4 mg tablet,disintegrating 4 mg PO Q8H PRN (Reason: nausea and vomiting) Qty: 20 0RF
[2023-09-22 18:09] VITALS: BP 147/88; PULSE 95; RESP 18; O2SAT 96
--- NOTE | 2023-09-22 18:18 | PC.NURSE ---
pt admits to alcohol use today, 2 beers and 1 nip earlier, now reports he drinks daily. pt reports nausea and headache at this time, alert and oriented.
--- NOTE | 2023-09-22 18:27 | PC.NURSE ---
CIWA scale conducted and is 13, Provider Dr. Penny notified.
[2023-09-22] MEDS: Prochlorperazine Edisylate 10 MG/2 ML VIAL IVPUSH (18:35)
[2023-09-22 19:04] LABS: Amphetamine Screen Urine Not Detected (Not Detect); Barbiturates, Urine Not Detected (Not Detect); Benzodiazepines Screen Urine Not Detected (Not Detect); Cannabinoid Screen Urine Not Detected (Not Detect); Cocaine Screen Urine POSITIVE (Not Detect); Fentanyl, urine POSITIVE (Not Detect); Opiate Screen Urine Not Detected (Not Detect); Phencyclidine Screen Urine Not Detected (Not Detect)
== END 2023-09-22 19:58 | disposition home or self-care (01) ==
PROVIDERS: Emergency Provider Emergency Medicine
DX: K29.70 Gastritis, unspecified, without bleeding (principal); R11.2 Nausea with vomiting, unspecified; R53.1 Weakness; R94.31 Abnormal electrocardiogram [ECG] [EKG]; Z79.899 Other long term (current) drug therapy; Z11.52 Encounter for screening for COVID-19
CPT/HCPCS: 36415; 76705; 80048; 80076; 80307; 81003; 82947; 83690; 83735; 84484; 85025; 87502; 87635; 93005; 96361; 96374; 99285; J0737; J2405

== ENCOUNTER 2023-10-06 11:00 | Outpatient (REF) | payer OTHER, MEDICAID, SELFPAY ==
[2023-10-06 13:35] LABS: PLT CLUMP 1; Red Cell Distribution Width 12.8 % (11.0-16.0); SCAN SMEAR FLAG 1
[2023-10-06 13:37] LABS: Basophils Absolute Auto 0.1 X10*3/uL (0.0-0.2); Basophils Percent Auto 0.8 % (0-2); Eosinophils Absolute Auto 0.5 X10*3/uL (0.0-0.4); Eosinophils Percent Auto 8.6 % (0-4); Hematocrit 37.7 % (42.0-52.0); Hemoglobin 13.2 g/dl (14.0-18.0); Imm Gran Abs Auto 0.03 X10*3/uL (0.00-0.03); Imm Gran Pct Auto 0.5 % (0.0-0.4); Lymphocytes Absolute Auto 1.3 X10*3/uL (1.2-4.9); Lymphocytes Percent Auto 21.9 % (20-40); MANUAL DIFF FLAG SCAN; Mean Corpuscular Hemoglobin 31.9 pg (27.0-33.0); Mean Corpuscular Volume 91.1 fL (80.0-98.0); Monocytes Absolute Auto 0.4 X10*3/uL (0.1-1.2); Monocytes Percent Auto 6.8 % (2-11); Neutrophils Absolute Auto 3.7 x10*3/uL (2.0-8.3); Neutrophils Percent Auto 61.4 % (45-73); Red Blood Count 4.14 X10*6/uL (4.60-5.80)
[2023-10-06 13:48] LABS: Estimated Average Glucose 120 mg/dL; Hemoglobin A1c % 5.8 % (<6.0)
[2023-10-06 14:09] LABS: Mean Platelet Volume 12.9 fL (9.4-12.4); Platelet Count 160 X10*3/uL (160-400); SLIDE REVIEW VERIFIED
[2023-10-06 14:41] LABS: Alanine Aminotransferase 22 U/L (0-40); Albumin Level 3.7 g/dL (3.5-5.0); Alkaline Phosphatase 157 U/L (39-117); Anion Gap 13 (12-20); Aspartate Amino Transferase 25 U/L (5-37); Bilirubin Direct 0.2 mg/dL (0.0-0.5); Bilirubin Total 0.4 mg/dL (0.0-1.0); Blood Urea Nitrogen 5 mg/dL (9-16); Calcium 9.2 mg/dL (8.4-10.2); Carbon Dioxide 29 mmol/L (22-29); Chloride 98 mmol/L (96-108); Estimated Glomerular Filt Rate > 60; Glucose Random 138 mg/dL (60-115); Potassium 3.6 mmol/L (3.3-5.1); Sodium 136 mmol/L (135-145)
[2023-10-07 04:04] LABS: HBS Num1 10.51 mIU/mL (0-7.99); HBc Num1 1.38 S/CO (0.00-0.79); HBsAGNum1 0.47 S/CO (0.00-0.99); Hepatitis B Surface Antigen Negative (Negative); ~HepC Num1 0.32 S/CO (0.00-0.79); ~Hepatitis C Antibody Nonreactive (Nonreactive)
[2023-10-07 04:18] LABS: Hepatitis A Antibody IgM 0.22 Index (0-0.79); ~Hepatitis A Antibody IgM Nonreactive (Nonreactive)
[2023-10-07 04:56] LABS: HBS Num2 10.43 mIU/mL (0-7.99); HBS Num3 10.02 mIU/mL (0-7.99); HBc Num3 1.28 S/CO; Hepatitis B Core Antibody Reactive (Nonreactive); ~Hepatitis B Surface Antibody GRAYZONE (Nonreactive)
[2023-10-08 12:04] LABS: Hepatitis B Core Antibody IgM NON-REACTIVE (NON-REACTIVE)
== END 2023-10-06 11:01 | disposition home or self-care (01) ==
LOC: HO.HHCL 11:00
PROVIDERS: Visit Provider Nurse Practitioner Family
DX: I10 Essential (primary) hypertension (principal); E16.2 Hypoglycemia, unspecified; C92.10 Chronic myeloid leukemia, BCR/ABL-positive, not having achieved remission
CPT/HCPCS: 36415; 80053; 82248; 83036; 85025; 86704; 86705; 86706; 86709; 86803; 87340

== ENCOUNTER 2023-10-20 12:18 | Outpatient (REF) | payer OTHER, SELFPAY ==
--- NOTE | ~2023-10-20 | US_ITS ---
EXAMINATION: US VENOUS ULTRASOUND WITH DOPPLER LOWER EXTREMITY, RIGHT CLINICAL INFORMATION: Pain and swelling COMPARISON: None available. TECHNIQUE: Ultrasound of the deep veins is performed from the hip to the calf with compression sonography and color and pulse Doppler assessment. Spectral analysis with color-flow imaging is performed. FINDINGS: There is normal venous compression and respiratory variation and augmented flow. The visualized common femoral vein, superficial femoral vein, profunda femoral vein, popliteal vein, and the trifurcation region shows no evidence of deep venous thrombosis. There is no significant popliteal fossa cyst. US/US venous duplex LE RT IMPRESSION: No DVT demonstrated in the right lower extremity.
== END 2023-10-20 12:19 | disposition home or self-care (01) ==
LOC: HO.US 12:18
PROVIDERS: PCP Nurse Practitioner Family; Visit Provider Internal Medicine
DX: R60.0 Localized edema (principal)
CPT/HCPCS: 93971

== ENCOUNTER 2023-10-26 21:05 | Inpatient (IN) | payer OTHER, SELFPAY ==
--- NOTE | ~2023-10-26 | CT_ITS ---
EXAMINATION: CT HEAD WITHOUT CONTRAST CLINICAL INFORMATION: Altered mental status. Fall. COMPARISON: None available. TECHNIQUE: Contiguous axial imaging was performed from the skull base to vertex without intravenous administration of contrast. This CT examination was performed using dose optimization techniques as appropriate, variously including the following: *Automated exposure control *Adjustment of mA and/or kV according to patient size (this includes techniques or standardized protocols for targeted exams where dose is matched to indication/reason for exam; i.e. extremities or head) *Use of iterative reconstruction technique DLP: 835 mGy-cm FINDINGS: The lateral, third and fourth ventricles are normally outlined. The cortical sulci and basal cisterns are normally outlined as well. There is no acute territorial defect, hemorrhage or midline shift. The extra-axial spaces are unremarkable. Calvarium: Intact. Maxillofacial sinuses and mastoids: There are bilateral ethmoidal, left maxillary and right frontal sinus opacities. There is mucosal thickening of the remaining maxillofacial sinuses. The mastoids are clear. CT/CT head/brain wo IV con IMPRESSION: 1. No acute intracranial pathology. 2. Ethmoid, left maxillary and right frontal sinus opacities. Correlation for significance.
--- NOTE | ~2023-10-26 | XR_ITS ---
EXAMINATION: XR CHEST CLINICAL INFORMATION: Cough. COMPARISON: Chest 11/30/2022 TECHNIQUE: Frontal view of the chest was obtained. FINDINGS: The lungs are hypoexpanded but clear. Heart size and pulmonary vascularity is normal. No gross bony abnormality seen. XR/XR chest 1V IMPRESSION: Hypoexpanded lungs without acute process.
--- NOTE | ~2023-10-26 | CT_ITS ---
EXAMINATION: CT CHEST, ABDOMEN AND PELVIS WITH CONTRAST CLINICAL INFORMATION: Altered mental status. Unresponsive. COMPARISON: None available. TECHNIQUE: Multidetector volumetric CT imaging of the chest, abdomen and pelvis was obtained after the administration of 85 mL of Omnipaque 350 intravenous contrast without immediate adverse reactions. Axial MIP volume rendering provided. Sagittal and coronal reformatted images were obtained. This CT examination was performed using dose optimization techniques as appropriate, variously including the following: *Automated exposure control *Adjustment of mA and/or kV according to patient size (this includes techniques or standardized protocols for targeted exams where dose is matched to indication/reason for exam; i.e. extremities or head) *Use of iterative reconstruction technique DLP: 1366 mGy-cm FINDINGS: HEALTHCARE LIAISON: Unremarkable. LUNGS: The lungs are clear with no evidence of inflammation or nodules. MEDIASTINUM: The heart is normal in size. There is no pericardial effusion. There is no significant lymph node enlargement. There is moderate coronary artery calcification. PLEURA: There is no pleural effusion. No pleural mass or thickening. AXILLA: No lymphadenopathy. LIVER, GALLBLADDER, AND BILIARY TREE: The liver is irregular in contour with a left lobe relative to the right lobe. No focal liver lesions are seen. There is no intrahepatic biliary duct dilatation. The gallbladder is normal in appearance. PANCREAS: Normal; no mass or surrounding fluid. SPLEEN: Normal size. No focal lesion. ADRENAL GLANDS: Normal; no mass. KIDNEYS AND URETERS: The kidneys are normal in size, shape, and attenuation. No hydronephrosis, hydroureter, or calculi. There are scattered small renal cysts measuring up to 1.3 cm upper pole right kidney. GASTROINTESTINAL TRACT: There are prominence apparently mildly thickened small bowel loops and fluid throughout the colon was also appears to be mildly thickened. The appendix is visualized and is within normal limits. ABDOMINAL WALL: No hernia seen. LYMPHOVASCULAR STRUCTURES: There is atherosclerotic plaque of the abdominal aorta and proximal branches. BLADDER: There is a Moreno catheter in place. PELVIC VISCERA: Unremarkable. OSSEOUS STRUCTURES: There is mild diffuse thoracolumbar disc degenerative change. CT/CT chest w IV con IMPRESSION: No evidence of acute disease in the chest. Atherosclerotic disease and coronary artery calcification. Irregular liver with a large left lobe relative to the right. Consider hepatocellular disease/early cirrhosis. Prominent fluid-filled colon and apparently mildly thickened small bowel loops. This may represent enterocolitis. No evidence of obstruction. Fleischner guidelines were followed.
--- NOTE | ~2023-10-26 | CT_ITS ---
EXAMINATION: CT CHEST, ABDOMEN AND PELVIS WITH CONTRAST CLINICAL INFORMATION: Altered mental status. Unresponsive. COMPARISON: None available. TECHNIQUE: Multidetector volumetric CT imaging of the chest, abdomen and pelvis was obtained after the administration of 85 mL of Omnipaque 350 intravenous contrast without immediate adverse reactions. Axial MIP volume rendering provided. Sagittal and coronal reformatted images were obtained. This CT examination was performed using dose optimization techniques as appropriate, variously including the following: *Automated exposure control *Adjustment of mA and/or kV according to patient size (this includes techniques or standardized protocols for targeted exams where dose is matched to indication/reason for exam; i.e. extremities or head) *Use of iterative reconstruction technique DLP: 1366 mGy-cm FINDINGS: CAUL FAT PULLER: Unremarkable. LUNGS: The lungs are clear with no evidence of inflammation or nodules. MEDIASTINUM: The heart is normal in size. There is no pericardial effusion. There is no significant lymph node enlargement. There is moderate coronary artery calcification. PLEURA: There is no pleural effusion. No pleural mass or thickening. AXILLA: No lymphadenopathy. LIVER, GALLBLADDER, AND BILIARY TREE: The liver is irregular in contour with a left lobe relative to the right lobe. No focal liver lesions are seen. There is no intrahepatic biliary duct dilatation. The gallbladder is normal in appearance. PANCREAS: Normal; no mass or surrounding fluid. SPLEEN: Normal size. No focal lesion. ADRENAL GLANDS: Normal; no mass. KIDNEYS AND URETERS: The kidneys are normal in size, shape, and attenuation. No hydronephrosis, hydroureter, or calculi. There are scattered small renal cysts measuring up to 1.3 cm upper pole right kidney. GASTROINTESTINAL TRACT: There are prominence apparently mildly thickened small bowel loops and fluid throughout the colon was also appears to be mildly thickened. The appendix is visualized and is within normal limits. ABDOMINAL WALL: No hernia seen. LYMPHOVASCULAR STRUCTURES: There is atherosclerotic plaque of the abdominal aorta and proximal branches. BLADDER: There is a Moreno catheter in place. PELVIC VISCERA: Unremarkable. OSSEOUS STRUCTURES: There is mild diffuse thoracolumbar disc degenerative change. CT/CT abdomen pelvis w IV con IMPRESSION: No evidence of acute disease in the chest. Atherosclerotic disease and coronary artery calcification. Irregular liver with a large left lobe relative to the right. Consider hepatocellular disease/early cirrhosis. Prominent fluid-filled colon and apparently mildly thickened small bowel loops. This may represent enterocolitis. No evidence of obstruction. Fleischner guidelines were followed.
[2023-10-26 21:12] VITALS: BP 151/80; BP 163/79; PULSE 103; PULSE 118; RESP 25; TEMP 37.7; O2SAT 92; O2SAT 97; BMI 29.1
--- NOTE | 2023-10-26 21:51 | ECG_ITS ---
Test Reason : OVERDOSE Blood Pressure : / mmHG Vent. Rate : 101 BPM Atrial Rate : 101 BPM P-R Int : 162 ms QRS Dur : 084 ms QT Int : 358 ms P-R-T Axes : 022 -26 017 degrees QTc Int : 464 ms Sinus tachycardia Minimal voltage criteria for LVH, may be normal variant ( R in aVL ) Borderline ECG When compared with ECG of 03-FEB-2019 23:10, Vent. rate has increased BY 43 BPM QT has lengthened Referred By: Billie Ruiz Electronically Signed By:MARGARETTE REYNOLDS
[2023-10-26 21:54] LABS: Glucose, Whole Blood 202 mg/dL (60-115)
--- NOTE | 2023-10-26 21:54 | ED_ITS ---
HPI - General Adult General Chief complaint: Seizure Stated complaint: OD? SEIZURE? RESPONSE TO PAINFUL STIMULI Time Seen by Provider: 10/26/23 21:47 Source: patient and EMS Mode of arrival: EMS History of Present Illness HPI narrative: 68-year-old male with history of CML, opioid use and is brought in by EMS after family called for suspected seizure activity, patient unable to provide any other history at this time, he was given 8 mg of nasal Narcan by the family and EMS notes that there was cocaine at the bedside patient does open eyes to voice and is currently vomiting/stooling/urinating but no noted seizure-like activity. Related Data Home Medications Medication Instructions Recorded Confirmed amlodipine 10 mg tablet 1 tab PO DAILY 07/30/20 10/20/23 atorvastatin 80 mg tablet 1 tab PO BEDTIME 07/30/20 10/20/23 chlorthalidone 25 mg tablet 2 tab PO DAILY 07/30/20 10/20/23 losartan 100 mg tablet 1 tab PO DAILY 07/30/20 10/20/23 metoprolol succinate 50 mg 1 tab PO DAILY 07/30/20 10/20/23 tablet,extended release 24 hr Previous Rx's Medication Instructions Recorded nilotinib 150 mg capsule (Tasigna) 2 cap PO BID #120 caps 08/13/21 famotidine 40 mg tablet 0.5 tab PO DAILY #30 tabs 09/02/22 ondansetron 4 mg disintegrating 4 mg PO Q8H PRN nausea and 11/30/22 tablet vomiting #20 tabs omeprazole 40 mg capsule,delayed 40 mg PO DAILY #90 caps 05/08/23 release ondansetron 4 mg disintegrating 4 mg PO Q6-8H PRN nausea and 09/01/23 tablet vomiting #10 tabs hyoscyamine sulfate 0.125 mg tablet 0.125 mg PO QID PRN dyspepsia #7 09/22/23 tabs omeprazole 20 mg capsule,delayed 20 mg PO DAILY #30 caps 09/22/23 release ondansetron HCl 4 mg tablet 4 mg PO Q6H PRN nausea and 09/22/23 vomiting #10 tabs Allergies Allergy/AdvReac Type Severity Reaction Status Date / Time No Known Allergies Allergy Verified 10/26/23 21:12 Review of Systems 2 Review of Systems: Yes Unobtainable due to mental condition PMFSH Past Medical History Source: nursing notes reviewed Medical History Chronic myelogenous leukemia Arthritis Depression Chronic neck pain History of alcohol abuse Osteoarthritis Fatty liver Hypercholesteremia Hypertension Surgical History History of prostate surgery Family History Family History Mother Diabetes Father Heart problem Liver cancer Brother Prostate CA Family/Other Breast cancer Paternal Aunt Metastatic cancer Social History Social History Household Members: Significant Other Housing: Apartment Alcohol intake: current Alcohol intake frequency: a few times a week Alcohol type: hard liquor Patient Tobacco Use Status: Never used Tobacco Advance Directives: No Advance Directives Information Provided: No service: No Current occupational status: disabled Physical Exam ED Vital Signs: Vital Signs - 24 hr 10/26/23 21:12 10/26/23 23:52 10/27/23 00:35 Temperature 99.9 F 101.3 F H 101.5 F H Pulse Rate 118 H 107 H 93 Respiratory Rate 25 H 24 H 25 H Blood Pressure 151/80 H 143/72 H 141/77 H Pulse Oximetry 92 93 93 Oxygen Delivery Method Room Air Room Air Room Air Oxygen Flow Rate 10/27/23 00:45 10/27/23 01:10 10/27/23 01:20 Temperature 101.7 F H 101.8 F H 101.8 F H Pulse Rate 96 94 95 Respiratory Rate 30 H 28 H 24 H Blood Pressure 141/77 H 143/62 H 144/68 H Pulse Oximetry 94 88 L 92 Oxygen Delivery Method Room Air Room Air Nasal Cannula Oxygen Flow Rate 2 BMI result Body Mass Index 29.1 VITAL SIGNS: Reviewed. GENERAL: Well developed, well nourished, in no acute distress. HEAD: Normocephalic/atraumatic EYES: PERRLA, EOMI EARS: Ext canals without abnormality NOSE: Nares patent bilateral OROPHARYNX: no oral lesions noted, posterior pharynx clear NECK: Supple, no adenopathy LUNGS: Tachypneic, decreased breath sounds bilateral SpO2<91> CARDIOVASCULAR: Regular rate and rhythm without noted murmurs, no JVD 1+ pitting in bilateral lower extremity ABDOMEN: Soft, non-tender, non-distended with bowel sounds. MUSCULOSKELETAL: No tenderness, deformities, or effusions noted on gross inspection. EXTREMITIES: No cyanosis, clubbing or edema. SKIN: Inspection of the skin reveals no rashes NEUROLOGIC: Confused and Strength and sensation to light touch were grossly intact x 4. Medications Administered Discontinued Medications Generic Name Dose Route Start Last Admin Trade Name Freq PRN Reason Stop Dose Admin Acetaminophen 975 mg 10/26/23 23:40 10/27/23 01:04 Acetaminophen 325 Mg Tablet PO 10/26/23 23:41 975 mg ONCE ONE Administration Sodium Chloride 1,000 mls @ 999 mls/hr 10/26/23 22:00 10/26/23 23:59 Ns IV 10/26/23 23:00 Not Given .Q1H1M MCKENNA Sodium Chloride 2,381.37 mls @ 2,381.37 mls/hr 10/26/23 22:35 10/27/23 00:30 Ns 30 ml/kg infuse over 1 hr (2381.37 ml) 10/26/23 23:34 Infused IV Infusion .Q1H STA Piperacillin Sod/Tazobactam 50 mls @ 100 mls/hr 10/26/23 23:43 10/27/23 01:04 Sod 3.375 gm/ Sodium Chloride IV 10/27/23 00:12 100 mls/hr ONCE ONE Administration Iohexol 85 ml 10/26/23 23:34 10/26/23 23:35 Iohexol 350 Mg/Ml 100 Ml Infus..Btl IV 10/26/23 23:35 85 ml ONCE ONE Administration Ketorolac Tromethamine 15 mg 10/26/23 23:40 10/27/23 01:06 Ketorolac Tromethamine 30 Mg/Ml Vial IVPUSH 10/26/23 23:41 15 mg ONCE ONE Administration Medical Decision Making Medical Decision Making MDM Narrative: 68-year-old male with history and clinical presentation, DDX: Alcohol withdrawal, opioid overdose, DKA/HHS, viral illness 2235: I have no clinical suspicion for infection but lab is called and reported that the lactic acid is greater than 4, will provide additional IV fluids but suspect that this is primarily secondary to hypoperfusion possible from overdose, dehydration. 2342: Informed by nursing that patient's temperature is 101 degrees, at this time despite no leukocytosis will proceed as though there is underlying infection. I reviewed all investigations and hematologic indices are negative for leukocytosis but there is a noted left shift and no anemia or thrombocytopenia. Coagulation studies are within normal limits. Chemistry indices demonstrate a mild hyponatremia likely secondary to patient's copious amounts of diarrhea and evidence of a non-anion gap metabolic acidosis that is likely attributable to the initial lactic acid elevation of 4.3 that is suspected to be related to hypoperfusion secondary to hypoxia and dehydration. Urinalysis negative for UTI or hematuria. GI panel is pending but C diff is noted to be negative. Urine drug screen is positive for both fentanyl and cocaine. Viral testing is positive for influenza. Patient has received IV fluids, as well as antibiotics, there was somewhat of a delay due to a system wide failure of access to the [facility] system. On re- evaluation patient does demonstrate improvement in alertness but continues to demonstrate hypoxia which is new, patient is currently on 2 L supplemental oxygen via nasal cannula. CT of the head negative for intracranial hemorrhage or mass effect, CT of the chest negative for evidence of consolidation/venous congestion, and CT of abdomen pelvis demonstrates enterocolitis. 0119: I discussed case with inpatient hospitalist who accepts admission. Differential Diagnosis Differential Diagnoses: The differential diagnosis associated with the presentation includes Please see the discussion above Admission/Observation Consideration of admission/observation: Escalation of care including admission/observation considered Please see the discussion above Consult Healthcare Provider Management of the patient was discussed with: Hospitalist Please see the discussion above Lab Data MDM Lab Attestation statement: I reviewed the patient's lab results. Please see the discussions about 10/26/23 22:10 10/26/23 22:10 Labs: Lab Results 10/26/23 10/26/23 10/26/23 Range/Units 21:50 22:10 23:13 WBC 10.0 (4.8-10.8) X10*3/uL RBC 4.47 L (4.60-5.80) X10*6/uL Hgb 14.2 (14.0-18.0) g/dl Hct 39.6 L (42.0-52.0) % MCV 88.6 (80.0-98.0) fL MCH 31.8 (27.0-33.0) pg MCHC 35.9 (31.0-36.0) g/dl RDW 12.5 (11.0-16.0) % Plt Count 181 (160-400) X10*3/uL MPV 11.9 (9.4-12.4) fL Immature Gran % (Auto) 0.5 H (0.0-0.4) % Neut % (Auto) 80.4 H (45-73) % Lymph % (Auto) 6.9 L (20-40) % [place] % (Auto) 11.5 H (2-11) % Eos % (Auto) 0.3 (0-4) % Baso % (Auto) 0.4 (0-2) % Lymph # (Auto) 0.7 L (1.2-4.9) X10*3/uL [place] # (Auto) 1.1 (0.1-1.2) X10*3/uL Eos # (Auto) 0.0 (0.0-0.4) X10*3/uL Baso # (Auto) 0.0 (0.0-0.2) X10*3/uL Abs Immat Gran (auto) 0.05 H (0.00-0.03) X10*3/uL Absolute Neuts (auto) 8.0 (2.0-8.3) x10*3/uL Absolute Nucleated RBC 0.000 (0.0-0.012) X10*3/uL Nucleated RBC % (auto) 0.0 (0.0-0.2) /100WBC PT 13.3 (11.1-13.3) SEC INR 1.1 (0.9-1.1) Sodium 131 L (135-145) mmol/L Potassium 3.6 (3.3-5.1) mmol/L Chloride 101 (96-108) mmol/L Carbon Dioxide 17 L (22-29) mmol/L Anion Gap 17 (12-20) BUN 6 L (9-16) mg/dL Creatinine 0.78 (0.5-1.4) mg/dL Estim Creat Clear Calc 89.2 Estimated GFR > 60 POC Glucose 202 H (60-115) mg/dL Random Glucose 164 H (60-115) mg/dL Lactic Acid 4.3 H* (0.5-2.0) mmol/L Calcium 8.9 (8.4-10.2) mg/dL Magnesium 1.7 (1.6-2.6) mg/dL Total Bilirubin 0.6 (0.0-1.0) mg/dL AST 36 (5-37) U/L ALT 17 (0-40) U/L Alkaline Phosphatase 94 (39-117) U/L Total Creatine Kinase 58 (38-174) U/L Troponin I High Sens 3.8 (<3.5-35.0) ng/L Total Protein 8.5 H (6.5-8.0) g/dL Albumin 3.4 L (3.5-5.0) g/dL Lipase 56 (8-78) U/L Beta-Hydroxybutyrate 0.13 (0.02-0.27) mmol/L Hold Green Top See Note Urine Color Yellow Urine Appearance Clear Urine pH 7.0 (5.0-9.0) Ur Specific [place] 1.015 (1.005-1.025) Urine Protein 100 (2+) H (Neg-Trace) mg/dL Urine Glucose (UA) Negative (Negative) mg/dL Urine Ketones Negative (Negative) mg/dL Urine Blood Small (1+) H (Negative) Urine Nitrite Negative (Negative) Ur Leukocyte Esterase Negative (Negative) Urine RBC 6-10 H (0-2) /HPF Urine WBC 0-5 (0-5) /HPF Ur Squamous Epith Cells 0-2 (0-2) /HPF Urine Bacteria None Seen (None Seen) Hyaline Casts 0-2 (0-2) /LPF Salicylates < 5.0 L (15-30) mg/dL Urine Opiates Screen Not Detected (Not Detect) Urine Fentanyl Screen POSITIVE H (Not Detect) Acetaminophen < 3 (<30) mcg/mL Ur Barbiturates Screen Not Detected (Not Detect) Ur Phencyclidine Scrn Not Detected (Not Detect) Ur Amphetamines Screen Not Detected (Not Detect) U Benzodiazepines Scrn Not Detected (Not Detect) Urine Cocaine Screen POSITIVE H (Not Detect) U Marijuana (THC) Screen Not Detected (Not Detect) Ethyl Alcohol < 10 mg/dL C. difficile Tox B Gene NEGATIVE (Negative) Influenza Type A (PCR) (Negative) Influenza Type B (PCR) (Negative) RSV RNA Qual (PCR) (Negative) SARS-CoV-2 RNA (RT-PCR) (Negative) 10/26/23 Range/Units 23:18 WBC (4.8-10.8) X10*3/uL RBC (4.60-5.80) X10*6/uL Hgb (14.0-18.0) g/dl Hct (42.0-52.0) % MCV (80.0-98.0) fL MCH (27.0-33.0) pg MCHC (31.0-36.0) g/dl RDW (11.0-16.0) % Plt Count (160-400) X10*3/uL MPV (9.4-12.4) fL Immature Gran % (Auto) (0.0-0.4) % Neut % (Auto) (45-73) % Lymph % (Auto) (20-40) % [place] % (Auto) (2-11) % Eos % (Auto) (0-4) % Baso % (Auto) (0-2) % Lymph # (Auto) (1.2-4.9) X10*3/uL [place] # (Auto) (0.1-1.2) X10*3/uL Eos # (Auto) (0.0-0.4) X10*3/uL Baso # (Auto) (0.0-0.2) X10*3/uL Abs Immat Gran (auto) (0.00-0.03) X10*3/uL Absolute Neuts (auto) (2.0-8.3) x10*3/uL Absolute Nucleated RBC (0.0-0.012) X10*3/uL Nucleated RBC % (auto) (0.0-0.2) /100WBC PT (11.1-13.3) SEC INR (0.9-1.1) Sodium (135-145) mmol/L Potassium (3.3-5.1) mmol/L Chloride (96-108) mmol/L Carbon Dioxide (22-29) mmol/L Anion Gap (12-20) BUN (9-16) mg/dL Creatinine (0.5-1.4) mg/dL Estim Creat Clear Calc Estimated GFR POC Glucose (60-115) mg/dL Random Glucose (60-115) mg/dL Lactic Acid (0.5-2.0) mmol/L Calcium (8.4-10.2) mg/dL Magnesium (1.6-2.6) mg/dL Total Bilirubin (0.0-1.0) mg/dL AST (5-37) U/L ALT (0-40) U/L Alkaline Phosphatase (39-117) U/L Total Creatine Kinase (38-174) U/L Troponin I High Sens (<3.5-35.0) ng/L Total Protein (6.5-8.0) g/dL Albumin (3.5-5.0) g/dL Lipase (8-78) U/L Beta-Hydroxybutyrate (0.02-0.27) mmol/L Hold Green Top Urine Color Urine Appearance Urine pH (5.0-9.0) Ur Specific [place] (1.005-1.025) Urine Protein (Neg-Trace) mg/dL Urine Glucose (UA) (Negative) mg/dL Urine Ketones (Negative) mg/dL Urine Blood (Negative) Urine Nitrite (Negative) Ur Leukocyte Esterase (Negative) Urine RBC (0-2) /HPF Urine WBC (0-5) /HPF Ur Squamous Epith Cells (0-2) /HPF Urine Bacteria (None Seen) Hyaline Casts (0-2) /LPF Salicylates (15-30) mg/dL Urine Opiates Screen (Not Detect) Urine Fentanyl Screen (Not Detect) Acetaminophen (<30) mcg/mL Ur Barbiturates Screen (Not Detect) Ur Phencyclidine Scrn (Not Detect) Ur Amphetamines Screen (Not Detect) U Benzodiazepines Scrn (Not Detect) Urine Cocaine Screen (Not Detect) U Marijuana (THC) Screen (Not Detect) Ethyl Alcohol mg/dL C. difficile Tox B Gene (Negative) Influenza Type A (PCR) POSITIVE A (Negative) Influenza Type B (PCR) NEGATIVE (Negative) RSV RNA Qual (PCR) NEGATIVE (Negative) SARS-CoV-2 RNA (RT-PCR) NEGATIVE (Negative) Independent Interpretation I performed an independent interpretation of an: EKG Interpretation: Sinus tachycardia, HR-101, no STEMI, DC/QRS/QTC is within normal limits. Radiology Impression Discussion of test interpretation with radiology: I have reviewed the radiologist's reading. Radiologist Impression: Please see the discussion above External Record Review External record reviewed: Outpatient record, Prior outpatient labs and Prior outpatient radiology Chronic Conditions CML Social Determinants Patient?s care significantly limited by Social Determinants of Health including: Alcoholism and drug addiction in family Critical Care Time Critical Care Time Critical Care Time: Yes Total Critical Care Time: 60 Attestation: I personally attest to this time spent taking care of the patient. Discharge Plan Discharge Clinical Impression: Hypoxia, Influenza A, Enterocolitis, Dehydration Patient Disposition: Admitted As Inpatient
[2023-10-26 22:14] LABS: MANUAL DIFF FLAG NO
[2023-10-26 22:18] LABS: Basophils Percent Auto 0.4 % (0-2); Eosinophils Percent Auto 0.3 % (0-4); Hematocrit 39.6 % (42.0-52.0); Hemoglobin 14.2 g/dl (14.0-18.0); Imm Gran Abs Auto 0.05 X10*3/uL (0.00-0.03); Imm Gran Pct Auto 0.5 % (0.0-0.4); Lymphocytes Absolute Auto 0.7 X10*3/uL (1.2-4.9); Lymphocytes Percent Auto 6.9 % (20-40); Mean Corpuscular HGB Conc 35.9 g/dl (31.0-36.0); Mean Corpuscular Hemoglobin 31.8 pg (27.0-33.0); Mean Corpuscular Volume 88.6 fL (80.0-98.0); Mean Platelet Volume 11.9 fL (9.4-12.4); Monocytes Absolute Auto 1.1 X10*3/uL (0.1-1.2); Monocytes Percent Auto 11.5 % (2-11); Neutrophils Percent Auto 80.4 % (45-73); Platelet Count 181 X10*3/uL (160-400); Red Blood Count 4.47 X10*6/uL (4.60-5.80); Red Cell Distribution Width 12.5 % (11.0-16.0)
[2023-10-26 22:22] LABS: INTERNATIONAL NORM RATIO 1.1 (0.9-1.1); Prothrombin Time 13.3 SEC (11.1-13.3)
[2023-10-26 22:35] LABS: Acetaminophen LAB < 3 mcg/mL (<30); Alanine Aminotransferase 17 U/L (0-40); Albumin Level 3.4 g/dL (3.5-5.0); Alkaline Phosphatase 94 U/L (39-117); Anion Gap 17 (12-20); Aspartate Amino Transferase 36 U/L (5-37); Beta-Hydroxybutyrate 0.13 mmol/L (0.02-0.27); Bilirubin Total 0.6 mg/dL (0.0-1.0); Blood Urea Nitrogen 6 mg/dL (9-16); Calcium 8.9 mg/dL (8.4-10.2); Carbon Dioxide 17 mmol/L (22-29); Chloride 101 mmol/L (96-108); Creatinine Clr Calc Pharmacy 89.2; Estimated Glomerular Filt Rate > 60; Ethanol < 10 mg/dL; Glucose Random 164 mg/dL (60-115); Lactic Acid 4.3 mmol/L (0.5-2.0); Lipase 56 U/L (8-78); Magnesium 1.7 mg/dL (1.6-2.6); Potassium 3.6 mmol/L (3.3-5.1); Salicylate < 5.0 mg/dL (15-30); Sodium 131 mmol/L (135-145); Total Protein 8.5 g/dL (6.5-8.0)
[2023-10-26 22:40] LABS: Troponin-I High Sensitivity 3.8 ng/L (<3.5-35.0)
[2023-10-26] MEDS: 0.9 % Sodium Chloride 2,381.37 ML 2381.37 ML IV (22:45)
[2023-10-26 23:27] LABS: Appearance Urine Clear; Color Urine Yellow; Glucose Urine UA Negative (Negative); Leukocyte Esterase Urine Negative (Negative); Nitrite Urine Negative (Negative); Specific Gravity - Urine 1.015 (1.005-1.025); UMIC TRIGGER UACC YES; Urine Blood Small (1+) (Negative); Urine Ketones Negative (Negative); Urine Protein 100 (2+) mg/dL (Neg-Trace)
[2023-10-26 23:33] LABS: Bacteria Urine None Seen (None Seen); Hyaline Casts Urine 0-2 /LPF (0-2); Squamous Epithelial Cell Urine 0-2 /HPF (0-2); WBC Urine 0-5 /HPF (0-5)
[2023-10-26] MEDS: iohexoL 350 MG/ML 100 ML INFUS..BTL 85 ML IV (23:35)
[2023-10-26 23:49] LABS: Amphetamine Screen Urine Not Detected (Not Detect); Barbiturates, Urine Not Detected (Not Detect); Benzodiazepines Screen Urine Not Detected (Not Detect); Cannabinoid Screen Urine Not Detected (Not Detect); Cocaine Screen Urine POSITIVE (Not Detect); Opiate Screen Urine Not Detected (Not Detect); Phencyclidine Screen Urine Not Detected (Not Detect)
[2023-10-26 23:52] VITALS: BP 143/72; PULSE 107; RESP 24; TEMP 38.5; O2SAT 93
--- NOTE | 2023-10-26 23:58 | PC.NURSE ---
UNABLE TO PULL MEDS FROM [facility] D/T TECHNICAL ISSUE Sherry HUGHES RN AWARE.
[2023-10-27] VITALS (18 sets, daily range): BP systolic 123–166; BP diastolic 56–92; PULSE 67–99; RESP 15–30; TEMP 37.1–38.8; O2SAT 88–98
[2023-10-27] LABS: Fentanyl, urine POSITIVE (Not Detect)
--- NOTE | 2023-10-27 00:03 | PC.NURSE ---
PT BIBA. EMS REPORTED THAT PT HAD ?SEIZURE LIKE ACTIVITY VS OD 8MG NARCAN ADMINISTERED [employer]. PT ARRIVED OPENS EYES TO VERBAL STIMULI TRACKING WITH EYES HOWEVER NOT VERBALLY RESPONSIVE. PT HAD 3-4X EXPLOSIVE DIARRHEA/VOMITING EPISODES. PT CLEANED UP EACH TIME. CDIFF SAMPLE SENT TO LAB. DRY BLOOD NOTICED ON LIPS HOWEVER NO TRAUMA NOTED. NO BLOOD IN VOMIT. VSS ON ARRIVAL AFEBRILE. BLOOD WORK OBTAINED. FLUIDS INFUSING PER OCT. SEPSIS PROTOCOL CALLED 2342. UNABLE TO ADMINISTER ABX AT THIS TIME D/T [facility] ISSUE; DR. LLANOS AND [employer]AIL [employer] HOLDER WOLF AWARE. TEMP SENSING GARCIA ADMINISTERED PREVIOUSLY DOCUMENTED. UA SENT TO LAB. EKG OBTAINED, SINUS TACHY ON MONITOR 105 BPM. PT CAME TO IT SPEAKING CLEAR SENTENCES ABLE TO EXPLAIN HAS HAD DIARRHEA SINCE YESTERDAY; NAUSEA. PT DENIES FEVER. PT DENIES DRUG/ALCOHOL USE.
[2023-10-27 00:04] LABS: Influenza A PCR POSITIVE (Negative); Influenza B PCR NEGATIVE (Negative); Resp Syncy Virus RNA Qual PCR NEGATIVE (Negative); SARS COV2 PCR INHOUSE NEGATIVE (Negative)
[2023-10-27 00:12] LABS: Reflex Lactate? Lactic Acid Added
[2023-10-27 00:14] LABS: CDiff Gene PCR NEGATIVE (Negative)
[2023-10-27] MEDS: Piperacillin Sodium/Tazobactam 3.375 GM in 0.9 % Sodium Chloride 50 ML IV (01:04)
[2023-10-27] MEDS: Acetaminophen 325 MG TABLET 975 MG PO (01:04)
[2023-10-27] MEDS: Ketorolac Tromethamine 30 MG/ML VIAL 15 MG IVPUSH (01:06)
--- NOTE | 2023-10-27 01:10 | PC.NURSE ---
Addendum entered by Kary Oscar 10/27/23 01:42: PT AXOX4 RESPONDING APPROPRIATELY SPEAKING FULL CLEAR SENTENCES. PLAN REP USED FOR INTERPRETATION NEPALI SPEAKING ONLY. Original Note: PT MEDICATED PER MAR TOLERATED WELL WITH WATER. IV ABX INFUSING. PT SATS 88% ON RA PLACED ON 2L NC PER ORDER; SATS 97%. RESP EVEN AND UNLABORED.
--- NOTE | 2023-10-27 01:27 | MHC.EDTECH ---
Pt incontinent of large amount of watery stool. Complete bedding change done and pt cleaned. Pt placed on bedpan to collect stool for GI panel sample. Bedpan removed after and sample sent. Moreno catheter bag emptied of 1500 cc. I&O's documented. RN aware.
[2023-10-27 01:34] LABS: ~Lactic Acid-LAB USE ONLY 2.4 mmol/L (0.5-2.0)
[2023-10-27 01:46] LABS: Anion Gap 13 (12-20); Blood Urea Nitrogen 7 mg/dL (9-16); Calcium 8.8 mg/dL (8.4-10.2); Carbon Dioxide 21 mmol/L (22-29); Chloride 100 mmol/L (96-108); Creatinine Clr Calc Pharmacy 85.9; Estimated Glomerular Filt Rate > 60; Glucose Random 164 mg/dL (60-115); Potassium 3.1 mmol/L (3.3-5.1); Sodium 131 mmol/L (135-145)
[2023-10-27] MEDS: KCl 40 mEq in 0.9 % Sodium Chl 40 MEQ/1,000 ML IV.SOLN 150 MEQ IVCONT ×3 (03:15→18:13)
[2023-10-27] MEDS: Loperamide HCl 2 MG CAPSULE PO (03:16)
[2023-10-27 03:17] LABS: Reflex Lactate? 2 Y
[2023-10-27] MEDS: Oseltamivir Phosphate 75 MG CAPSULE PO ×3 (03:17→23:32)
[2023-10-27] MEDS: oxyCODONE HCl Immed Release 5 MG TABLET PO (03:19)
[2023-10-27] MEDS: Ibuprofen 400 MG TABLET PO (03:23)
--- NOTE | 2023-10-27 03:23 | P.HPHOSP_ITS ---
History of Present Illness Date of Service: 10/27/23 Attending physician on admission: Cyrus Abad Chief Complaint: Diarrhea Rakan Abad is a 68 years old man with past medical history significant for essential hypertension, chronic pain on opiate and CML presents to the emergency department complaining of copious nonbloody diarrhea over the last several days associated with nausea, vomiting, fevers and headache. He denied chest pain, cough or shortness on breath. He did not report any acute urinary symptoms. In the ED, he was found to have persistent intractable fever (max 101.8), tachycardia and tachypnea. There is no hypotension. Blood workup showed no leukocytosis. There is hyponatremia and hypokalemia. Renal function is adequate. Chest, abdomen pelvis CT scan showed no evidence of acute disease in the chest. It showed irregular liver (hepatocellular disease/early cirrhosis) and findings that may represent enterocolitis. ED tx: NS 3 L, acetaminophen 975 mg p.o., ketorolac 15 mg IV, Zosyn 3.375 g Review of Systems 2 Review of Systems: All 12 systems were reviewed and normal except as noted in HPI. [facility] Medical History Chronic myelogenous leukemia Arthritis Depression Chronic neck pain History of alcohol abuse Osteoarthritis Fatty liver Hypercholesteremia Hypertension Family History Mother Diabetes Father Heart problem Liver cancer Brother Prostate CA Family/Other Breast cancer Paternal Aunt Metastatic cancer Surgical History History of prostate surgery Social History Household Members: Significant Other Housing: Apartment Alcohol intake: current Alcohol intake frequency: a few times a week Alcohol type: hard liquor Patient Tobacco Use Status: Never used Tobacco Advance Directives: No Advance Directives Information Provided: No service: No Current occupational status: disabled Meds Allergies Allergy/AdvReac Type Severity Reaction Status Date / Time No Known Allergies Allergy Verified 10/26/23 21:12 Active Medications: Current Medications Acetaminophen (Acetaminophen 325 Mg Tablet) 650 mg PO Q6H PRN PRN Reason: Fever Potassium Chloride/Sodium Chloride (Kcl 40 Meq In 0.9 % Sodium Chl) 40 meq in 1,000 mls @ 150 mls/hr IVCONT .Q6H40M [facility] Last Admin: 10/27/23 03:15 Dose: 150 mls/hr Ondansetron HCl (Ondansetron Hcl 4 Mg/2 Ml Vial) 4 mg IVPUSH Q6H PRN PRN Reason: Nausea and Vomiting Oseltamivir Phosphate (Oseltamivir Phosphate 75 Mg Capsule) 75 mg PO BID [facility] Stop: 10/31/23 09:01 Last Admin: 10/27/23 03:17 Dose: 75 mg Sodium Chloride (0.9 % Sodium Chloride Flush 3 Ml Syringe) 3 ml IVFLUSH QSHIFT [facility] Home Medications Medication Instructions Recorded Confirmed Last Taken Type amlodipine 10 mg tablet 1 tab PO DAILY 07/30/20 10/27/23 Unknown History atorvastatin 80 mg tablet 1 tab PO BEDTIME 07/30/20 10/27/23 Unknown History chlorthalidone 25 mg tablet 2 tab PO DAILY 07/30/20 10/20/23 Unknown History losartan 100 mg tablet 1 tab PO DAILY 07/30/20 10/27/23 Unknown History metoprolol succinate 50 mg 1 tab PO DAILY 07/30/20 10/20/23 Unknown History tablet,extended release 24 hr Physical Exam 2 Vital Signs and Narrative: Vital Signs: Last Vital Signs Temp 101 F H 10/27/23 02:05 Pulse 95 10/27/23 01:20 Resp 24 H 10/27/23 01:20 BP 144/68 H 10/27/23 01:20 Pulse Ox 97 10/27/23 01:42 O2 Del Method Nasal Cannula 10/27/23 01:42 O2 Flow Rate 2 10/27/23 01:42 BMI result Body Mass Index 29.1 Constitutional - Drowsy, no apparent distress. Acutely ill. Restless HEENT - PERRLA, EOMI Heart - tachycardia, no murmur Lung - Normal lung expansion, Normal respiratory effort, No respiratory distress, CTA bilaterally Gastrointestinal - NT / ND; +BS; No rebound or guarding - No CVA tenderness Extremities - no calf tenderness bilaterally, no swelling Musculoskeletal - Normal inspection, normal ROM Skin - Warm/Dry Neurological - Alert & oriented x3. No focal weakness. Normal speech. Psychological - Appropriate affect Results Labs 10/27/23 05:31 10/27/23 01:20 Labs: Laboratory Results - last 24 hr 10/26/23 10/26/23 10/26/23 21:50 22:10 23:13 MCV 88.6 MCH 31.8 MCHC 35.9 RDW 12.5 Plt Count 181 MPV 11.9 Immature Gran % (Auto) 0.5 H Neut % (Auto) 80.4 H Lymph % (Auto) 6.9 L [place] % (Auto) 11.5 H Eos % (Auto) 0.3 Baso % (Auto) 0.4 Lymph # (Auto) 0.7 L [place] # (Auto) 1.1 Eos # (Auto) 0.0 Baso # (Auto) 0.0 Abs Immat Gran (auto) 0.05 H Absolute Neuts (auto) 8.0 Absolute Nucleated RBC 0.000 Nucleated RBC % (auto) 0.0 PT 13.3 INR 1.1 Anion Gap 17 Estim Creat Clear Calc 89.2 Estimated GFR > 60 POC Glucose 202 H Random Glucose 164 H Lactic Acid 4.3 H* Lactic Acid F/U @ 2Hr Calcium 8.9 Magnesium 1.7 Total Bilirubin 0.6 AST 36 ALT 17 Alkaline Phosphatase 94 Total Creatine Kinase 58 Troponin I High Sens 3.8 Total Protein 8.5 H Albumin 3.4 L Lipase 56 Beta-Hydroxybutyrate 0.13 Hold Green Top See Note Urine Color Yellow Urine Appearance Clear Urine pH 7.0 Ur Specific [place] 1.015 Urine Protein 100 (2+) H Urine Glucose (UA) Negative Urine Ketones Negative Urine Blood Small (1+) H Urine Nitrite Negative Ur Leukocyte Esterase Negative Urine RBC 6-10 H Urine WBC 0-5 Ur Squamous Epith Cells 0-2 Urine Bacteria None Seen Hyaline Casts 0-2 Salicylates < 5.0 L Urine Opiates Screen Not Detected Urine Fentanyl Screen POSITIVE H Acetaminophen < 3 Ur Barbiturates Screen Not Detected Ur Phencyclidine Scrn Not Detected Ur Amphetamines Screen Not Detected U Benzodiazepines Scrn Not Detected Urine Cocaine Screen POSITIVE H U Marijuana (THC) Screen Not Detected Ethyl Alcohol < 10 C. difficile Tox B Gene NEGATIVE Influenza Type A (PCR) Influenza Type B (PCR) RSV RNA Qual (PCR) SARS-CoV-2 RNA (RT-PCR) 10/26/23 10/27/23 10/27/23 23:18 01:14 01:20 MCV MCH MCHC RDW Plt Count MPV Immature Gran % (Auto) Neut % (Auto) Lymph % (Auto) [place] % (Auto) Eos % (Auto) Baso % (Auto) Lymph # (Auto) [place] # (Auto) Eos # (Auto) Baso # (Auto) Abs Immat Gran (auto) Absolute Neuts (auto) Absolute Nucleated RBC Nucleated RBC % (auto) PT INR Anion Gap 13 Estim Creat Clear Calc 85.9 Estimated GFR > 60 POC Glucose Random Glucose 164 H Lactic Acid Lactic Acid F/U @ 2Hr 2.4 H* Calcium 8.8 Magnesium Total Bilirubin AST ALT Alkaline Phosphatase Total Creatine Kinase Troponin I High Sens Total Protein Albumin Lipase Beta-Hydroxybutyrate Hold Green Top Urine Color Urine Appearance Urine pH Ur Specific [place] Urine Protein Urine Glucose (UA) Urine Ketones Urine Blood Urine Nitrite Ur Leukocyte Esterase Urine RBC Urine WBC Ur Squamous Epith Cells Urine Bacteria Hyaline Casts Salicylates Urine Opiates Screen Urine Fentanyl Screen Acetaminophen Ur Barbiturates Screen Ur Phencyclidine Scrn Ur Amphetamines Screen U Benzodiazepines Scrn Urine Cocaine Screen U Marijuana (THC) Screen Ethyl Alcohol C. difficile Tox B Gene Influenza Type A (PCR) POSITIVE A Influenza Type B (PCR) NEGATIVE RSV RNA Qual (PCR) NEGATIVE SARS-CoV-2 RNA (RT-PCR) NEGATIVE Imaging Radiologist's Impressions: Impressions Chest X-Ray 10/26/23 22:19 IMPRESSION: Hypoexpanded lungs without acute process. Head CT 10/26/23 23:33 IMPRESSION: 1. No acute intracranial pathology. 2. Ethmoid, left maxillary and right frontal sinus opacities. Correlation for significance. Abdomen/Pelvis CT 10/26/23 23:47 IMPRESSION: No evidence of acute disease in the chest. Atherosclerotic disease and coronary artery calcification. Irregular liver with a large left lobe relative to the right. Consider hepatocellular disease/early cirrhosis. Prominent fluid-filled colon and apparently mildly thickened small bowel loops. This may represent enterocolitis. No evidence of obstruction. Fleischner guidelines were followed. Chest CT 10/26/23 23:47 IMPRESSION: No evidence of acute disease in the chest. Atherosclerotic disease and coronary artery calcification. Irregular liver with a large left lobe relative to the right. Consider hepatocellular disease/early cirrhosis. Prominent fluid-filled colon and apparently mildly thickened small bowel loops. This may represent enterocolitis. No evidence of obstruction. Fleischner guidelines were followed. Assessment and Plan (1) Dehydration: Status: Acute (2) Influenza A: Status: Acute (3) Acute gastroenteritis: Status: Acute Plan Rakan Abad is a 68 years old man admitted with: * Acute gastroenteritis secondary to influenza infection causing significant dehydration. Doubt C diff: No abdominal pain, no leukocytosis. Admit to hospitalist service. Droplet precautions. NPO except for medication and sips of liquid. Start therapy with Tamiflu 75 mg p.o. b.i.d. for 10 doses Continue IV hydration. Hold hydrochlorothiazide. Symptomatic therapy with acetaminophen and morphine. * Hyponatremia. Secondary to vomiting and diarrhea/dehydration. Continue IV fluids. Continue to monitor sodium level. * Hypokalemia secondary to vomiting and diarrhea. Replete as needed. * Hypomagnesemia. Replete as needed. Continue to monitor magnesium level. * Lactic acidosis secondary to above. Continue IV fluids. Continue to monitor lactic acid. Blood cultures were obtained. * Hyperlipidemia. Continue statin. * Essential hypertension. Continue amlodipine and losartan. * History of CML. Unclear if pt is taking Tasigna. When I asked if he has CML he seems confused about this diagnosis. DVT prophylaxis: Heparin subcut Code status: Full Patient will need hospitalization for at least 2 midnight severe gastroenteritis secondary to influenza infection management with IV fluids, antidiarrhea medications and a course of Tamiflu. Patient will also need electrolyte replacement as needed. Quality Stroke Does the patient have a stroke diagnosis?: No VTE Prior VTE?: No VTE Risk Level:: Medical - moderate - high VTE Device Contraindication: N/A - Device Ordered VTE Drug Contraindication: N/A - Med Ordered
--- NOTE | 2023-10-27 03:40 | MHC.EDTECH ---
Pt incontinent of another large amount of watery stool. Complete bedding change done, pt cleaned and gown changed. RN aware
--- NOTE | 2023-10-27 03:42 | PC.NURSE ---
pt medicated per oct. fever improving. pt axox4 speaking full clear sentences. pt able to reposition self in bed. pt now able to appropriately request bedpan as needed. bed linen changed. pt denies cp/sob/n/v. pt tolerating po intake. motrin given per Dr. Baldomero Abad as fever was not improving with meds already given. Dr. Baldomero Abad aware iv toradol was also administered. pt educated on use of call zaman. pt denies questions/concerns at this time. resting comfortably. unable to scan oxycodone per oct gas charger Karen witnessed as scan barcode was faded.
[2023-10-27 03:55] LABS: Alanine Aminotransferase 18 U/L (0-40); Albumin Level 3.5 g/dL (3.5-5.0); Alkaline Phosphatase 86 U/L (39-117); Aspartate Amino Transferase 26 U/L (5-37); Bilirubin Direct 0.3 mg/dL (0.0-0.5); Bilirubin Total 0.7 mg/dL (0.0-1.0); Total Protein 8.1 g/dL (6.5-8.0)
[2023-10-27 04:09] LABS: ~Lactic Acid-LAB USE ONLY 2.5 mmol/L (0.5-2.0)
[2023-10-27] MEDS: Lactated Ringers 500 ML 999 ML IV (04:52)
[2023-10-27 05:38] LABS: Basophils Percent Auto 0.2 % (0-2); PLT CLUMP 1; Red Cell Distribution Width 12.4 % (11.0-16.0); SCAN SMEAR FLAG 1
[2023-10-27 05:40] LABS: Hematocrit 37.1 % (42.0-52.0); Imm Gran Abs Auto 0.04 X10*3/uL (0.00-0.03); Imm Gran Pct Auto 0.4 % (0.0-0.4); Lymphocytes Absolute Auto 0.7 X10*3/uL (1.2-4.9); Lymphocytes Percent Auto 7.4 % (20-40); Mean Corpuscular Hemoglobin 31.6 pg (27.0-33.0); Mean Corpuscular Volume 90.3 fL (80.0-98.0); Monocytes Absolute Auto 0.9 X10*3/uL (0.1-1.2); Monocytes Percent Auto 9.4 % (2-11); Neutrophils Absolute Auto 7.5 x10*3/uL (2.0-8.3); Neutrophils Percent Auto 82.6 % (45-73); Red Blood Count 4.11 X10*6/uL (4.60-5.80)
[2023-10-27 05:41] LABS: MANUAL DIFF FLAG NO; Platelet Count 129 X10*3/uL (160-400); White Blood Count 8.8 X10*3/uL (4.8-10.8)
[2023-10-27 06:00] LABS: Alanine Aminotransferase 17 U/L (0-40); Albumin Level 3.3 g/dL (3.5-5.0); Alkaline Phosphatase 77 U/L (39-117); Anion Gap 13 (12-20); Aspartate Amino Transferase 25 U/L (5-37); Bilirubin Total 0.7 mg/dL (0.0-1.0); Blood Urea Nitrogen 7 mg/dL (9-16); Calcium 8.7 mg/dL (8.4-10.2); Carbon Dioxide 20 mmol/L (22-29); Chloride 104 mmol/L (96-108); Estimated Glomerular Filt Rate > 60; Glucose Random 135 mg/dL (60-115); Magnesium 1.5 mg/dL (1.6-2.6); Potassium 3.3 mmol/L (3.3-5.1); Sodium 134 mmol/L (135-145); Total Protein 7.8 g/dL (6.5-8.0)
[2023-10-27] MEDS: Magnesium Sulfate/H2O 2 GM/50 ML PIGGYBACK IV (06:18)
--- NOTE | 2023-10-27 07:23 | PHA.MEDREC ---
Pharmacy Consult ? Medication Reconciliation Pharmacy has reviewed the medication reconciliation.
--- NOTE | 2023-10-27 07:52 | PC.NURSE ---
patient appears to be asleep, respirations equal and unlabored, VSS, obando emptied 750 ml clear yellow urine, KCI 40 0.9 NS running at 150ml/hr. patient shows no signs of acute distress. skin dry and intact
[2023-10-27 08:31] LABS: Lactic Acid 1.1 mmol/L (0.5-2.0)
--- NOTE | 2023-10-27 09:50 | PM.EVENT ---
Event Note Date of Service: 10/27/23 Event Note: Seen and evaluated this morning Weak and has low energy Continue Tamiflu and IVF Electrolyte replacement Follow BMP encourage PO intake Time Spent With Patient Time: Total time managing care of this patient today ____ minutes.
[2023-10-27] MEDS: Heparin Sodium,Porcine 5,000 UNIT/ML VIAL 5000 UNIT SUBCUT ×3 (10:28→23:32)
[2023-10-27 10:38] LABS: Adenovirus F 40/41 Not Detected (Not Detect.); Astrovirus Not Detected (Not Detect.); Campylobacter Not Detected (Not Detect.); Cryptosporidium Not Detected (Not Detect.); Cyclospora cayetanensis Not Detected (Not Detect.); E. coli EAEC Not Detected (Not Detect.); E. coli EPEC Not Detected (Not Detect.); E. coli ETEC Not Detected (Not Detect.); E. coli STEC Not Detected (Not Detect.); Entamoeba histolytica Not Detected (Not Detect.); Giardia lamblia Not Detected (Not Detect.); Norovirus GI/GII Not Detected (Not Detect.); Plesiomonas shigelloides Not Detected (Not Detect.); Rotavirus A Not Detected (Not Detect.); Salmonella Not Detected (Not Detect.); Sapovirus Not Detected (Not Detect.); Shigella sp./EIEC Not Detected (Not Detect.); Vibrio Not Detected (Not Detect.); Vibrio Cholerae Not Detected (Not Detect.); Yersinia enterocolitica Not Detected (Not Detect.)
--- NOTE | 2023-10-27 14:11 | PC.NURSE ---
patient obando emptied 1350 ml urine output, patient resting quietly in bed, respirations equal and unlabored. potassium 40 meq 0.9 NS 150 ml/hr running patent
--- NOTE | 2023-10-27 17:10 | PM.EVENT ---
Event Note Date of Service: 10/27/23 Event Note: One of 2 blood cultures positive for Gram-positive cocci. Will start on vancomycin and repeat blood cultures tomorrow morning. Time Spent With Patient Time: Total time managing care of this patient today ____ minutes.
[2023-10-27] MEDS: ondansetron HCL 4 MG/2 ML VIAL IVPUSH (18:32)
[2023-10-27] MEDS: Acetaminophen 325 MG TABLET 650 MG PO (18:32)
--- NOTE | 2023-10-27 18:38 | PC.NURSE ---
patient resting quietly in bed, respirations equal and unlabored, patient medicated with prn zofran for nausea and tylenol for fever 100.4 per obando temp sensor. patient currently has no signs of distress, skin dry and intact, patient pads and linens are dry. obando emptied 350ml straw colored urine. patient medicated per mar has vanco running and potassium 40 meq with NS at 150ml/hr. patient sleeps on and off arousable to verbal stimuli.
[2023-10-27] MEDS: vancomycin/NS 2,000 MG/500 ML PLAST..BAG 250 MG IV (18:45)
--- NOTE | 2023-10-27 19:34 | PHA.PROG ---
Admission Date/Time: October 27, 2023 02:32 Indication: Bacteremia Weight in k.37 kg Adjusted body weight in K kg [place] body weight in K.5 kg Obesity Dosing Indication % IBW: 128% Serum Creatinine - Last 168 Hours 10/26/23 10/27/23 10/27/23 22:10 01:20 05:31 Creatinine 0.78 0.81 0.74 Estimated CrCl and GFR - Last 168 Hours 10/26/23 10/27/23 10/27/23 22:10 01:20 05:31 Estim Creat Clear Calc 89.2 85.9 94.0 Estimated GFR > 60 > 60 > 60 Vancomycin Loading Dose: 2000 mg Current Vancomycin Dosing Regimen: 1000 mg Q12H Date and Time for next Vancomycin Level to be drawn: 10/28 @ 0500 Pharmacist Comments on Vancomycin Plan: patient received an adequare load dose in the ER 10/26 @ 1845 maintenenace dose vancomcyin 1000 mg Q12h is scheudld to start 10/27 @ 0700. Predicted [id number] with a trough of 14.89 level will be drawn prior to 4th dose pharmacy will monitor renal function daily Jody Ambrocio PharmD Vancomycin dosing will take advantage of GVISP 1 as a clinical decision support tool that uses Bayesian modeling to calculate individual patient's pharmacokinetic parameters and forecast the patient's drug concentration time course with the target goal AUC 24 range of 400 - 600 mg/L/hr.
[2023-10-28] VITALS (8 sets, daily range): BP systolic 149–179; BP diastolic 74–100; PULSE 64–118; RESP 18–20; TEMP 36.3–37.4; O2SAT 94–100
[2023-10-28] MEDS: KCl 40 mEq in 0.9 % Sodium Chl 40 MEQ/1,000 ML IV.SOLN 150 MEQ IVCONT ×3 (04:31→20:16)
[2023-10-28] MEDS: 0.9 % Sodium Chloride Flush 3 ML SYRINGE IVFLUSH ×3 (04:38→20:15)
[2023-10-28 06:54] LABS: Mean Corpuscular HGB Conc 34.7 g/dl (31.0-36.0); Mean Corpuscular Hemoglobin 31.9 pg (27.0-33.0); Mean Corpuscular Volume 91.9 fL (80.0-98.0); Platelet Count 181 X10*3/uL (160-400); Red Blood Count 5.33 X10*6/uL (4.60-5.80); Red Cell Distribution Width 12.8 % (11.0-16.0); White Blood Count 8.2 X10*3/uL (4.8-10.8)
[2023-10-28 07:32] LABS: Anion Gap 18 (12-20); Blood Urea Nitrogen 14 mg/dL (9-16); Calcium 9.8 mg/dL (8.4-10.2); Carbon Dioxide 18 mmol/L (22-29); Chloride 108 mmol/L (96-108); Creatinine Clr Calc Pharmacy 89.2; Estimated Glomerular Filt Rate > 60; Glucose Random 136 mg/dL (60-115); Potassium 4.2 mmol/L (3.3-5.1); Sodium 140 mmol/L (135-145)
[2023-10-28] MEDS: vancomycin HCL 1,000 MG in 0.9 % Sodium Chloride 250 ML 270 MG IV (07:33)
[2023-10-28] MEDS: Heparin Sodium,Porcine 5,000 UNIT/ML VIAL 5000 UNIT SUBCUT (10:01)
[2023-10-28] MEDS: Oseltamivir Phosphate 75 MG CAPSULE PO ×2 (10:02→20:15)
--- NOTE | 2023-10-28 13:13 | HO.PM.IMPN ---
Subjective Subjective Date of Service: 10/28/23 Interval History: Seen and evaluated this morning Feels mildly better but overall weak asking for food less diarrhea no other events Review of Systems Review of Systems: Yes all other systems are reviewed and are negative Physical Exam Vital Signs: Vital Signs: Last Vital Signs Temp 97.4 F 10/28/23 11:42 Pulse 69 10/28/23 11:42 Resp 20 10/28/23 11:42 BP 149/74 H 10/28/23 11:42 Pulse Ox 98 10/28/23 11:42 O2 Del Method Nasal Cannula 10/28/23 11:42 O2 Flow Rate 1 10/28/23 11:42 BMI result Body Mass Index 29.1 Const: Other: Constitutional : Awake, interactive, frail, not in distress Neck : Normal inspection, Supple Cardiovascular : RRR, no JVP, no lower extremity edema Respiratory : good bilateral air entry, no crackles, wheezes or rhonchi Gastrointestinal: soft, lax, Normal bowel sounds, Non tender Skin : Warm, Dry Neurological : Alert & oriented x3, No focal deficit Objective Data Active Medications Acetaminophen (Acetaminophen 325 Mg Tablet) 650 mg PO Q6H PRN PRN Reason: Fever Last Admin: 10/27/23 18:32 Dose: 650 mg Documented By: CLAYTON Heparin Sodium (Porcine) (Heparin Sodium,Porcine 5,000 Unit/Ml Vial) 5,000 unit SUBCUT Q8H ON LICENSE OF [facility] Last Admin: 10/28/23 10:01 Dose: 5,000 unit Documented By: TUTU Potassium Chloride/Sodium Chloride (Kcl 40 Meq In 0.9 % Sodium Chl) 40 meq in 1,000 mls @ 150 mls/hr IVCONT .Q6H40M ON LICENSE OF [facility] Last Admin: 10/28/23 07:33 Dose: 150 mls/hr Documented By: YARIEL Loperamide HCl (Loperamide Hcl 2 Mg Capsule) 2 mg PO Q4H PRN PRN Reason: Diarrhea Morphine Sulfate (Morphine Sulfate 4 Mg/Ml Cartridge) 3 mg IVPUSH Q4H PRN; Protocol PRN Reason: Pain, Severe (Pain Scale 7-10) Ondansetron HCl (Ondansetron Hcl 4 Mg/2 Ml Vial) 4 mg IVPUSH Q6H PRN PRN Reason: Nausea and Vomiting Last Admin: 10/27/23 18:32 Dose: 4 mg Documented By: CLAYTON Oseltamivir Phosphate (Oseltamivir Phosphate 75 Mg Capsule) 75 mg PO BID ON [facility] OF [facility] Stop: 10/31/23 09:01 Last Admin: 10/28/23 10:02 Dose: 75 mg Documented By: TUTU Sodium Chloride (0.9 % Sodium Chloride Flush 3 Ml Syringe) 3 ml IVFLUSH QSHIFT ON LICENSE OF [facility] Last Admin: 10/28/23 10:02 Dose: Not Given Documented By: TUTU Non-Admin Reason: IV Running Labs 10/28/23 06:10 10/28/23 06:12 Labs: Laboratory Results - last 24 hr 10/28/23 10/28/23 06:10 06:12 MCV 91.9 MCH 31.9 MCHC 34.7 RDW 12.8 Plt Count 181 D MPV 12.0 Absolute Nucleated RBC 0.000 Nucleated RBC % (auto) 0.0 Anion Gap 18 Estim Creat Clear Calc 89.2 Estimated GFR > 60 Random Glucose 136 H Calcium 9.8 D Microbiology Microbiology Results: Microbiology 10/26/23 23:18 Blood Culture - Final Blood - Venous Coag negative Staphylococcus 10/26/23 22:10 Blood Culture - Preliminary Blood - Venous No growth after 24 hours. Assessment and Plan (1) Influenza A: Status: Acute (2) Enterocolitis: Status: Acute (3) Dehydration: Status: Acute Plan Rakan Abad is a 68 years old man admitted with: # Acute gastroenteritis secondary to influenza infection Droplet precautions Advance diet Continue Tamiflu 75 mg p.o. b.i.d. for 10 doses Continue IV hydration. Hold hydrochlorothiazide. # Acute Hyponatremia. Resolved Continue IV fluids. Continue to monitor sodium level. # Acute Hypokalemia secondary to vomiting and diarrhea. Replete as needed. # acute Hypomagnesemia. Resolved # Lactic acidosis secondary to above. resolved # Positive blood culture growing CoAg negative Staph. DC Vancomycin # Hyperlipidemia. Continue statin. # Essential hypertension. Continue amlodipine and losartan. # History of CML. outpatient follow up DVT prophylaxis: Heparin subcut Patient will need hospitalization overnight for severe gastroenteritis secondary to influenza infection management with IV fluids, antidiarrhea medications and a course of Tamiflu. Patient will also need electrolyte replacement as needed. Quality Stroke Does the patient have a stroke diagnosis?: No VTE Prior VTE?: No VTE Risk Level:: Medical - moderate - high VTE Device Contraindication: N/A - Device Ordered VTE Drug Contraindication: N/A - Med Ordered
--- NOTE | 2023-10-28 13:56 | MHC.CM.PN ---
IMM 10/28/23, CM met with pt and an vocational adviser, he is independent, no home health services or medical equipment. HCP on file, confirmed: Keli Allen, PCP confirmed: Ashley Hdz. Pt will get a ride home upon DC. CM to follow and assist with DC plan.
[2023-10-28] MEDS: Loperamide HCl 2 MG CAPSULE 4 MG PO (15:40)
[2023-10-28] MEDS: 0.9 % Sodium Chloride 1,000 ML 999 ML IV (15:41)
[2023-10-28 16:14] LABS: VBG Base Excess -7.4 mmol/L; VBG HCO3 15 mmol/L (22-26); VBG pCO2 26 mmHg; VBG pH 7.37 (7.32-7.43); VBG pO2 46 mmHg
[2023-10-28 16:16] LABS: Venous Blood Gas Refer to POC result
[2023-10-28 16:24] LABS: Anion Gap 16 (12-20); Blood Urea Nitrogen 20 mg/dL (9-16); Carbon Dioxide 15 mmol/L (22-29); Chloride 110 mmol/L (96-108); Creatinine Clr Calc Pharmacy 74.8; Estimated Glomerular Filt Rate > 60; Glucose Random 162 mg/dL (60-115); Potassium 4.2 mmol/L (3.3-5.1); Sodium 137 mmol/L (135-145)
[2023-10-29] MEDS: Heparin Sodium,Porcine 5,000 UNIT/ML VIAL 5000 UNIT SUBCUT ×3 (01:39→16:04)
[2023-10-29 03:44] VITALS: BP 175/90; PULSE 70; RESP 18; TEMP 37.3; O2SAT 97
[2023-10-29 06:43] LABS: Hematocrit 41.2 % (42.0-52.0); Hemoglobin 13.9 g/dl (14.0-18.0); Mean Corpuscular HGB Conc 33.7 g/dl (31.0-36.0); Mean Corpuscular Hemoglobin 31.2 pg (27.0-33.0); Mean Corpuscular Volume 92.4 fL (80.0-98.0); Mean Platelet Volume 11.7 fL (9.4-12.4); Platelet Count 168 X10*3/uL (160-400); Red Blood Count 4.46 X10*6/uL (4.60-5.80); Red Cell Distribution Width 12.4 % (11.0-16.0); Vancomycin Trough 5.3 mcg/mL (10.0-20.0); White Blood Count 7.6 X10*3/uL (4.8-10.8)
[2023-10-29 06:54] LABS: Anion Gap 11 (12-20); Blood Urea Nitrogen 15 mg/dL (9-16); Calcium 8.6 mg/dL (8.4-10.2); Carbon Dioxide 17 mmol/L (22-29); Chloride 109 mmol/L (96-108); Creatinine Clr Calc Pharmacy 96.6; Estimated Glomerular Filt Rate > 60; Glucose Random 108 mg/dL (60-115); Potassium 3.7 mmol/L (3.3-5.1); Sodium 133 mmol/L (135-145)
[2023-10-29 08:00] VITALS: BP 168/90; PULSE 84; RESP 18; TEMP 37; O2SAT 98
[2023-10-29] MEDS: Oseltamivir Phosphate 75 MG CAPSULE PO ×2 (08:53→20:07)
[2023-10-29] MEDS: 0.9 % Sodium Chloride Flush 3 ML SYRINGE IVFLUSH ×2 (08:53→16:05)
[2023-10-29] MEDS: Metoprolol Succinate ER 50 MG TAB.ER.24H PO (10:12)
[2023-10-29] MEDS: Losartan Potassium 50 MG TABLET PO (10:12)
[2023-10-29] MEDS: Loperamide HCl 2 MG CAPSULE 4 MG PO (10:12)
[2023-10-29] MEDS: Lactated Ringers 1,000 ML 100 ML IVCONT ×2 (10:14→20:07)
--- NOTE | 2023-10-29 10:57 | HO.PM.IMPN ---
Subjective Subjective Date of Service: 10/29/23 Interval History: Seen and evaluated this morning Mentation fluctuate, more sleepy this morning Less O2 requirement still having diarrhea no other events Review of Systems Review of Systems: Yes all other systems are reviewed and are negative Physical Exam Vital Signs: Vital Signs: Last Vital Signs Temp 98.6 F 10/29/23 08:00 Pulse 84 10/29/23 08:00 Resp 18 10/29/23 08:00 BP 168/90 H 10/29/23 08:00 Pulse Ox 98 10/29/23 08:00 O2 Del Method Nasal Cannula 10/29/23 08:00 O2 Flow Rate 1 10/29/23 08:00 BMI result Body Mass Index 29.1 Const: Other: Constitutional : Awake, interactive, frail, not in distress Neck : Normal inspection, Supple Cardiovascular : RRR, no JVP, no lower extremity edema Respiratory : good bilateral air entry, no crackles, wheezes or rhonchi Gastrointestinal: soft, lax, Normal bowel sounds, Non tender Skin : Warm, Dry Neurological : Alert & oriented to self and place, No focal deficit Objective Data Active Medications Acetaminophen (Acetaminophen 325 Mg Tablet) 650 mg PO Q6H PRN PRN Reason: Fever Last Admin: 10/27/23 18:32 Dose: 650 mg Documented By: CLAYTON Famotidine (Famotidine 20 Mg Tablet) 20 mg PO DAILY [facility] Heparin Sodium (Porcine) (Heparin Sodium,Porcine 5,000 Unit/Ml Vial) 5,000 unit SUBCUT Q8H [facility] Last Admin: 10/29/23 08:52 Dose: 5,000 unit Documented By: SLAVA Lactated Ringer's (Lr) 1,000 mls @ 100 mls/hr IVCONT .Q10H [facility] Last Admin: 10/29/23 10:14 Dose: 100 mls/hr Documented By: SLAVA Loperamide HCl (Loperamide Hcl 2 Mg Capsule) 2 mg PO Q4H PRN PRN Reason: Diarrhea Losartan Potassium (Losartan Potassium 50 Mg Tablet) 50 mg PO DAILY [facility]; Protocol Last Admin: 10/29/23 10:12 Dose: 50 mg Documented By: SLAVA Metoprolol Succinate (Metoprolol Succinate Er 50 Mg Tab.Er.24h) 50 mg PO DAILY [facility]; Protocol Last Admin: 10/29/23 10:12 Dose: 50 mg Documented By: SLAVA Morphine Sulfate (Morphine Sulfate 4 Mg/Ml Cartridge) 3 mg IVPUSH Q4H PRN; Protocol PRN Reason: Pain, Severe (Pain Scale 7-10) Ondansetron HCl (Ondansetron Hcl 4 Mg/2 Ml Vial) 4 mg IVPUSH Q6H PRN PRN Reason: Nausea and Vomiting Last Admin: 10/27/23 18:32 Dose: 4 mg Documented By: CLAYTON Oseltamivir Phosphate (Oseltamivir Phosphate 75 Mg Capsule) 75 mg PO BID [facility] Stop: 10/31/23 09:01 Last Admin: 10/29/23 08:53 Dose: 75 mg Documented By: SLAVA Sodium Chloride (0.9 % Sodium Chloride Flush 3 Ml Syringe) [facility] Last Admin: 10/29/23 08:53 Dose: 3 ml Documented By: SLAVA Labs 10/29/23 05:57 10/29/23 05:57 Labs: Laboratory Results - last 24 hr 10/28/23 10/28/23 10/29/23 16:03 16:06 05:57 MCV 92.4 MCH 31.2 MCHC 33.7 RDW 12.4 Plt Count 168 MPV 11.7 Absolute Nucleated RBC 0.000 Nucleated RBC % (auto) 0.0 VBG pH 7.37 VBG pCO2 26 VBG pO2 46 VBG HCO3 15 L VBG O2 Saturation 72.0 VBG Base Excess -7.4 Anion Gap 16 11 L Estim Creat Clear Calc 74.8 96.6 Estimated GFR > 60 Random Glucose 162 H Calcium 9.0 D Vancomycin Trough 10/29/23 10/29/23 05:57 05:57 MCV MCH MCHC RDW Plt Count MPV Absolute Nucleated RBC Nucleated RBC % (auto) VBG pH VBG pCO2 VBG pO2 VBG HCO3 VBG O2 Saturation VBG Base Excess Anion Gap Estim Creat Clear Calc 98.0 Estimated GFR > 60 > 60 Random Glucose 108 Calcium 8.6 Vancomycin Trough 5.3 L Microbiology Microbiology Results: Microbiology 10/28/23 06:10 Blood Culture - Preliminary Blood - Venous No growth after 24 hours. 10/28/23 06:10 Blood Culture - Preliminary Blood - Venous No growth after 24 hours. 10/26/23 22:10 Blood Culture - Preliminary Blood - Venous No growth after 48 hours. 10/26/23 23:18 Blood Culture - Final Blood - Venous Coag negative Staphylococcus Assessment and Plan (1) Acute gastroenteritis: Status: Acute (2) Dehydration: Status: Acute (3) Enterocolitis: Status: Acute (4) Influenza A: Status: Acute Plan Rakan Abad is a 68 years old man admitted with: # Acute gastroenteritis secondary to influenza infection Droplet precautions Advance diet Continue Tamiflu 75 mg p.o. b.i.d. for 10 doses Continue IV hydration. Hold hydrochlorothiazide. # Acute Hyponatremia. mild Continue IV fluids. Continue to monitor sodium level. # Acute Hypokalemia secondary to vomiting and diarrhea. Replete as needed. # acute Hypomagnesemia. Resolved # Lactic acidosis secondary to above. resolved # Positive blood culture growing CoAg negative Staph. DC Vancomycin # Hyperlipidemia. Continue statin. # Essential hypertension. Continue amlodipine and losartan. # History of CML. outpatient follow up DVT prophylaxis: Heparin subcut Patient will need hospitalization overnight for severe gastroenteritis secondary to influenza infection management with IV fluids, antidiarrhea medications and a course of Tamiflu. Patient will also need electrolyte replacement as needed. Quality Stroke Does the patient have a stroke diagnosis?: No VTE Prior VTE?: No VTE Risk Level:: Medical - moderate - high VTE Device Contraindication: N/A - Device Ordered VTE Drug Contraindication: N/A - Med Ordered
[2023-10-29] MEDS: Sodium Bicarbonate 650 MG TABLET PO ×2 (11:30→20:07)
[2023-10-29 12:00] VITALS: BP 178/92; PULSE 71; RESP 18; TEMP 36.6; O2SAT 97
[2023-10-29 15:32] VITALS: BP 164/88; PULSE 70; RESP 20; TEMP 36.8; O2SAT 97
[2023-10-29] MEDS: Morphine Sulfate 4 MG/ML CARTRIDGE 3 MG IVPUSH ×2 (16:04→21:03)
[2023-10-29] MEDS: Loperamide HCl 2 MG CAPSULE PO (16:04)
[2023-10-29 19:36] VITALS: BP 167/88; PULSE 74; RESP 20; TEMP 36.9; O2SAT 98
[2023-10-29 20:19] LABS: Glucose, Whole Blood 118 mg/dL (60-115)
[2023-10-30] VITALS: BP 169/93; PULSE 69; RESP 20; TEMP 36.7; O2SAT 99
[2023-10-30] MEDS: 0.9 % Sodium Chloride Flush 3 ML SYRINGE IVFLUSH ×2 (00:06→09:45)
[2023-10-30] MEDS: Heparin Sodium,Porcine 5,000 UNIT/ML VIAL 5000 UNIT SUBCUT ×2 (00:07→09:45)
[2023-10-30] MEDS: guaiFENesin DM 200/20/10 ML 10 ML SYRUP PO (00:08)
[2023-10-30] MEDS: Morphine Sulfate 4 MG/ML CARTRIDGE 3 MG IVPUSH (02:25)
[2023-10-30 03:13] VITALS: BP 172/83; PULSE 71; RESP 20; TEMP 36.8; O2SAT 96
[2023-10-30] MEDS: Lactated Ringers 1,000 ML 100 ML IVCONT (04:33)
[2023-10-30 07:20] LABS: Hematocrit 36.8 % (42.0-52.0); Hemoglobin 13.1 g/dl (14.0-18.0); Mean Corpuscular HGB Conc 35.6 g/dl (31.0-36.0); Mean Corpuscular Hemoglobin 31.3 pg (27.0-33.0); Mean Corpuscular Volume 87.8 fL (80.0-98.0); Mean Platelet Volume 11.4 fL (9.4-12.4); Platelet Count 140 X10*3/uL (160-400); Red Blood Count 4.19 X10*6/uL (4.60-5.80); Red Cell Distribution Width 11.9 % (11.0-16.0)
[2023-10-30 07:58] LABS: Anion Gap 10 (12-20); Blood Urea Nitrogen 9 mg/dL (9-16); Calcium 8.1 mg/dL (8.4-10.2); Carbon Dioxide 21 mmol/L (22-29); Chloride 105 mmol/L (96-108); Creatinine Clr Calc Pharmacy 124.2; Estimated Glomerular Filt Rate > 60; Glucose Random 97 mg/dL (60-115); Potassium 3.4 mmol/L (3.3-5.1); Sodium 133 mmol/L (135-145)
[2023-10-30 08:00] VITALS: BP 155/84; PULSE 77; RESP 20; TEMP 37.1; O2SAT 96
[2023-10-30] MEDS: Oseltamivir Phosphate 75 MG CAPSULE PO (09:44)
[2023-10-30] MEDS: Metoprolol Succinate ER 50 MG TAB.ER.24H PO (09:44)
[2023-10-30] MEDS: Sodium Bicarbonate 650 MG TABLET PO (09:44)
[2023-10-30] MEDS: Famotidine 20 MG TABLET PO (09:45)
[2023-10-30] MEDS: Losartan Potassium 50 MG TABLET PO (09:45)
[2023-10-30 11:44] VITALS: BP 158/86; PULSE 76; RESP 16; TEMP 37.4; O2SAT 96
--- NOTE | 2023-10-30 12:16 | P.DS_ITS ---
DS: Providers Provider Date of Service: 10/30/23 Date of admission: 10/27/23 02:32 Primary care physician: Ashley Hdz NP DS: Diagnosis Discharge Diagnosis (1) Acute gastroenteritis: Status: Acute (2) Dehydration: Status: Acute (3) Enterocolitis: Status: Acute (4) Influenza A: Status: Acute (5) Hypoxia: Status: Acute DS: Summary Hospital Course Hospital Course: Admission note HPI Rakan Abad is a 68 years old man with past medical history significant for essential hypertension, chronic pain on opiate and CML presents to the emergency department complaining of copious nonbloody diarrhea over the last several days associated with nausea, vomiting, fevers and headache. He denied chest pain, cough or shortness on breath. He did not report any acute urinary symptoms. In the ED, he was found to have persistent intractable fever (max 101.8), tachycardia and tachypnea. There is no hypotension. Blood workup showed no leukocytosis. There is hyponatremia and hypokalemia. Renal function is adequate. Chest, abdomen pelvis CT scan showed no evidence of acute disease in the chest. It showed irregular liver (hepatocellular disease/early cirrhosis) and findings that may represent enterocolitis. ED tx: NS 3 L, acetaminophen 975 mg p.o., ketorolac 15 mg IV, Zosyn 3.375 g Hospital course # Acute gastroenteritis secondary to influenza infection with CT scan showing likely Enterocolitis picture. Treated with IV fluids, nausea and diarrhea medic ations along with Tamiflu 75 mg p.o. b.i.d. with fair response over the course of hospital stay as his diet was advanced gradually with good tolerance. a Moreno catheter and rectal tube were placed during the hospital stay. removed prior to discharge as he was able to pass urine and stool. # Acute Hyponatremia. mild. Resolved with IV fluids. # Acute Hypokalemia. secondary to vomiting and diarrhea. Repleted # acute Hypomagnesemia. Resolved with replacement # Lactic acidosis secondary to dehydration. resolved with IV fluids usage. # Positive blood culture. had positive 1 set growing CoAg negative Staph. Contaminant Continue Tamiflu Use Imodium as needed for diarrhea Drink plenty of fluids Advance your diet gradually Time Attestation Discharge Coordination Time (in mins): 41 Quality: Safe Use of Opioids Does Pt have an Active Cancer Diagnosis on the Problem List?: No Quality: Stroke Does the patient have a stroke diagnosis?: No Physical Exam Vital Signs: Vital Signs: Last Vital Signs Temp 99.3 F 10/30/23 11:44 Pulse 76 10/30/23 11:44 Resp 16 10/30/23 11:44 BP 158/86 H 10/30/23 11:44 Pulse Ox 96 10/30/23 11:44 O2 Del Method Room Air 10/30/23 11:44 O2 Flow Rate 2 10/30/23 03:13 BMI result Body Mass Index 29.1 Const: Other: Constitutional : Awake, interactive, frail, not in distress Neck : Normal inspection, Supple Cardiovascular : RRR, no JVP, no lower extremity edema Respiratory : good bilateral air entry, no crackles, wheezes or rhonchi Gastrointestinal: soft, lax, Normal bowel sounds, Non tender Skin : Warm, Dry Neurological : Alert & oriented to self and place, No focal deficit DS: Data Data Completed and Pending Labs on day of discharge: Laboratory Results - last 24 hr 10/29/23 10/30/23 20:16 06:55 WBC 6.0 RBC 4.19 L Hgb 13.1 L Hct 36.8 L MCV 87.8 MCH 31.3 MCHC 35.6 RDW 11.9 Plt Count 140 L MPV 11.4 Absolute Nucleated RBC 0.000 Nucleated RBC % (auto) 0.0 Sodium 133 L Potassium 3.4 Chloride 105 Carbon Dioxide 21 L Anion Gap 10 L BUN 9 Creatinine 0.56 Estim Creat Clear Calc 124.2 Estimated GFR > 60 POC Glucose 118 H Random Glucose 97 Calcium 8.1 L Preliminary micro results at discharge 10/28/23 06:10 Blood Culture - Preliminary Blood - Venous No growth after 48 hours. 10/28/23 06:10 Blood Culture - Preliminary Blood - Venous No growth after 48 hours. 10/26/23 22:10 Blood Culture - Preliminary Blood - Venous No growth after 48 hours. Imaging Chest x-ray: Radiologist's impression: ITS Impressions Chest X-Ray 10/26/23 22:19 IMPRESSION: Hypoexpanded lungs without acute process. Head CT 10/26/23 23:33 IMPRESSION: 1. No acute intracranial pathology. 2. Ethmoid, left maxillary and right frontal sinus opacities. Correlation for significance. Abdomen/Pelvis CT 10/26/23 23:47 IMPRESSION: No evidence of acute disease in the chest. Atherosclerotic disease and coronary artery calcification. Irregular liver with a large left lobe relative to the right. Consider hepatocellular disease/early cirrhosis. Prominent fluid-filled colon and apparently mildly thickened small bowel loops. This may represent enterocolitis. No evidence of obstruction. Fleischner guidelines were followed. Chest CT 10/26/23 23:47 IMPRESSION: No evidence of acute disease in the chest. Atherosclerotic disease and coronary artery calcification. Irregular liver with a large left lobe relative to the right. Consider hepatocellular disease/early cirrhosis. Prominent fluid-filled colon and apparently mildly thickened small bowel loops. This may represent enterocolitis. No evidence of obstruction. Fleischner guidelines were followed. Discharge Plan Discharge Anticipated Discharge Date/Time: 10/30/23 12:12 Patient Disposition: Home, Self-Care Discharge Diagnosis: Influenza infection Gastroenteritis Referrals: Ashley Hdz, BLOOD BANK MANAGER [Primary Care Provider] - 1 Week Discharge Medications: New loperamide 2 mg Capsule 2 mg PO Q4H PRN (Reason: Diarrhea) Qty: 12 0RF oseltamivir [Tamiflu] 75 mg Capsule 75 mg PO BID Qty: 2 0RF Continued atorvastatin 80 mg tablet 1 tab PO BEDTIME metoprolol succinate 50 mg tablet extended release 24 hr 1 tab PO DAILY chlorthalidone 25 mg tablet 2 tab PO DAILY amlodipine 10 mg tablet 1 tab PO DAILY losartan 100 mg tablet 1 tab PO DAILY famotidine 40 mg tablet 0.5 tab PO DAILY Qty: 30 6RF omeprazole 40 mg Capsule,Delayed Release(Dr/Ec) 40 mg PO DAILY Qty: 90 3RF hyoscyamine sulfate 0.125 mg tablet 0.125 mg PO QID PRN (Reason: dyspepsia) Qty: 7 0RF Discharge Orders: Discharge Order (Routine); Ordered 10/30/23 Ordered By: Yordan Gunn Diet: Advance to usual diet Activity on Discharge: As tolerated Stand Alone Forms: Patient Portal Discharge page Care Plan Goals: Read below Health Concerns: Read below Plan of Treatment: Read below Assessment: Continue Tamiflu Use Imodium as needed for diarrhea Drink plenty of fluids Advance your diet gradually Patient Instructions: Influenza (GEN), Gastroenteritis (GEN)
--- NOTE | 2023-10-30 13:38 | MHC.CM.PN ---
Pt is medically cleared for D/C home self-care, pt has arranged their own ride home.
== END 2023-10-30 16:39 | disposition home or self-care (01) | DRG 866 ==
LOC: HO.ED 10-27 01:20 → HO.EDOVER 10-27 02:38 → HO.IMC 10-27 19:38
PROVIDERS: Student in an Organized Health Care Education/Training Program; Admitting Provider Internal Medicine; Emergency Provider Student in an Organized Health Care Education/Training Program; PCP Nurse Practitioner Family; Visit Provider Student in an Organized Health Care Education/Training Program
DX: J10.2 Influenza due to other identified influenza virus with gastrointestinal manifestations (principal); E87.1 Hypo-osmolality and hyponatremia; E78.5 Hyperlipidemia, unspecified; E86.0 Dehydration; I10 Essential (primary) hypertension; E87.6 Hypokalemia; E83.42 Hypomagnesemia; Z85.6 Personal history of leukemia; Z20.822 Contact with and (suspected) exposure to COVID-19; Z79.899 Other long term (current) drug therapy
CPT/HCPCS: 0241U; 36415; 70450; 71045; 71260; 74177; 80048; 80053; 80076; 80143; 80179; 80202; 80307; 81001; 82010; 82550; 82565; 82803; 82947; 83605; 83690; 83735; 84484; 85025; 85027; 85610; 87040; 87147; 87205; 87493; 87507; 93005; 97161; 99285; C1758; J1644; J1885; J2270; J2405; J2543; J3370; J3475; J3480; J7120; Q9967

== ENCOUNTER → 2023-10-26 21:51 | Outpatient (BNV) | payer OTHER, SELFPAY | PROVIDERS: Admitting Provider Internal Medicine; Emergency Provider Student in an Organized Health Care Education/Training Program; PCP Nurse Practitioner Family; Visit Provider Internal Medicine | DX: I47.10 Supraventricular tachycardia, unspecified (principal) | CPT/HCPCS: 93010 ==

== ENCOUNTER → 2023-10-27 02:32 | Outpatient (BNV) | payer OTHER, SELFPAY | PROVIDERS: Admitting Provider Internal Medicine; Emergency Provider Student in an Organized Health Care Education/Training Program; Visit Provider Internal Medicine | DX: K52.9 Noninfective gastroenteritis and colitis, unspecified (principal); E86.0 Dehydration; J10.1 Influenza due to other identified influenza virus with other respiratory manifestations; R09.02 Hypoxemia | CPT/HCPCS: 99223; 99232; 99239; 99499 ==

== ENCOUNTER 2024-02-05 16:50 | Emergency (ER) | payer OTHER, SELFPAY ==
--- NOTE | ~2024-02-05 | US_ITS ---
EXAMINATION: US ABDOMEN LIMITED CLINICAL INFORMATION: Epigastric pain. Nausea. COMPARISON: CT abdomen pelvis dated 02/05/2024. TECHNIQUE: Real-time imaging of the right upper quadrant abdominal viscera. FINDINGS: PANCREAS: The pancreas is normal in appearance. LIVER: The liver is enlarged. Parenchymal echogenicity is increased. No focal hepatic lesion. There is no intrahepatic biliary duct dilatation seen. GALLBLADDER: The gallbladder is physiologically distended without evidence of stones, sludge, polyps, wall thickening or pericholecystic fluid. COMMON BILE DUCT: Normal in caliber measuring 0.3 cm in diameter. RIGHT KIDNEY: No hydronephrosis. No renal calculi. There is an upper pole cyst measuring 0.6 x 0.4 x 0.6 cm. The kidney measures 12.1 cm in maximum dimension. FREE FLUID: None. US/US abdomen limited IMPRESSION: No acute findings. The liver is enlarged and steatotic. The gallbladder is normal in appearance.
--- NOTE | ~2024-02-05 | CT_ITS ---
EXAMINATION: CT ABDOMEN AND PELVIS WITH CONTRAST CLINICAL INFORMATION: black tarry stools, diffuse ABD pain COMPARISON: 10/26/2023 TECHNIQUE: Multidetector volumetric imaging was performed from the superior aspect of the liver through the pubic symphysis following administration of 85 mL Omnipaque 300 intravenous contrast. Sagittal and coronal reformatted images were obtained on the technologist workstation.. This CT examination was performed using dose optimization techniques as appropriate, variously including the following: *Automated exposure control *Adjustment of mA and/or kV according to patient size (this includes techniques or standardized protocols for targeted exams where dose is matched to indication/reason for exam; i.e. extremities or head) *Use of iterative reconstruction technique DLP: 548 mGy-cm FINDINGS: LUNG BASES: Minimal linear dependent atelectasis bilaterally. Extensive coronary artery calcification. LIVER, GALLBLADDER, AND BILIARY TREE: Diffuse fatty infiltration of the liver with hypertrophy of the left lobe. There is heterogeneous attenuation likely representing. Degrees of fatty infiltration. No focal hepatic lesion or obvious biliary ductal dilatation seen The gallbladder is unremarkable with no evidence of radiopaque gallstones, gallbladder wall thickening, or obvious pericholecystic inflammatory changes. PANCREAS: Unremarkable. SPLEEN: Unremarkable. ADRENAL GLANDS: Unremarkable. KIDNEYS AND URETERS: The kidneys are normal in size, shape, and attenuation. Small bilateral renal cortical cysts No hydronephrosis, hydroureter, or perinephric stranding. No calculi. BLADDER: Unremarkable. GASTROINTESTINAL TRACT: Specific attention was given to the bowel. A few scattered colonic diverticula are seen but I do not appreciate any focal colonic wall thickening or pericolonic inflammatory change to suggest diverticulitis. Visualized appendix unremarkable. Small bowel is grossly unremarkable. Stomach is decompressed and difficult to assess in this setting ABDOMINAL WALL: No significant hernia is appreciated. LYMPHOVASCULAR STRUCTURES: Vascular calcification within the aorta iliac system. No bulky adenopathy PELVIC VISCERA: Unremarkable. OSSEOUS STRUCTURES: Mild degenerative changes in the spine CT/CT abdomen pelvis w IV con IMPRESSION: Chronic appearing changes as described above.
[2024-02-05 17:35] VITALS: PULSE 72; RESP 15; O2SAT 98; BMI 29.0
[2024-02-05 18:00] VITALS: BP 142/86; PULSE 76; RESP 15; TEMP 36.8; O2SAT 95
[2024-02-05 18:07] LABS: MANUAL DIFF FLAG NO
[2024-02-05 18:09] LABS: Basophils Percent Auto 0.5 % (0-2); Eosinophils Absolute Auto 0.1 X10*3/uL (0.0-0.4); Eosinophils Percent Auto 1.7 % (0-4); Hematocrit 42.6 % (42.0-52.0); Hemoglobin 15.6 g/dl (14.0-18.0); Imm Gran Abs Auto 0.01 X10*3/uL (0.00-0.03); Imm Gran Pct Auto 0.2 % (0.0-0.4); Lymphocytes Absolute Auto 1.2 X10*3/uL (1.2-4.9); Lymphocytes Percent Auto 20.1 % (20-40); Mean Corpuscular HGB Conc 36.6 g/dl (31.0-36.0); Mean Corpuscular Hemoglobin 31.4 pg (27.0-33.0); Mean Corpuscular Volume 85.7 fL (80.0-98.0); Mean Platelet Volume 11.9 fL (9.4-12.4); Monocytes Absolute Auto 0.5 X10*3/uL (0.1-1.2); Monocytes Percent Auto 7.8 % (2-11); Neutrophils Percent Auto 69.7 % (45-73); Platelet Count 142 X10*3/uL (160-400); Red Blood Count 4.97 X10*6/uL (4.60-5.80); Red Cell Distribution Width 12.6 % (11.0-16.0); White Blood Count 5.8 X10*3/uL (4.8-10.8)
[2024-02-05 18:11] LABS: Appearance Urine Clear; Color Urine Yellow; Glucose Urine UA Negative (Negative); Leukocyte Esterase Urine Negative (Negative); Nitrite Urine Negative (Negative); PH 7.5 (5.0-9.0); Specific Gravity - Urine <= 1.005 (1.005-1.025); Urine Blood Negative (Negative); Urine Ketones Negative (Negative); Urine Protein Negative (Neg-Trace)
--- NOTE | 2024-02-05 18:13 | ED_ITS ---
HPI - Abdominal Pain General Chief Complaint: Abdominal Pain Stated Complaint: ULQ abd pain, black tarry stool, DIARRHEA Time Seen by Provider: 02/05/24 17:08 Source: patient and EMS Mode of arrival: EMS Limitations: language barrier (Chilean-speaking bridge game director utilized) History of Present Illness HPI narrative: Patient is a 69-year-old male who presents emergency department for evaluation. He reports 1 week with nausea, vomiting with nonbloody bilious emesis that occurs after eating or drinking, diffuse abdominal pain that is worse at the epigastric with intermittent black tarry stools last occurred a few days ago. Reports that stools are soft but not liquidy are watery, denies constipation. Denies the use of iron supplementation or known anticoagulants. He states he has had similar symptoms was epigastrium in the past but has never experienced the black and tarry stools. Reports his abdomen feels bloated. He admits to drinking a couple of beers 2-3 times weekly Related Data Home Medications ?Medication ?Instructions ?Recorded ?Confirmed amlodipine 10 mg tablet 1 tab PO DAILY 07/30/20 10/27/23 atorvastatin 80 mg tablet 1 tab PO BEDTIME 07/30/20 10/27/23 chlorthalidone 25 mg tablet 2 tab PO DAILY 07/30/20 10/27/23 losartan 100 mg tablet 1 tab PO DAILY 07/30/20 10/27/23 metoprolol succinate 50 mg 1 tab PO DAILY 07/30/20 10/27/23 tablet,extended release 24 hr Previous Rx's ?Medication ?Instructions ?Recorded famotidine 40 mg tablet 0.5 tab PO DAILY #30 tabs 09/02/22 omeprazole 40 mg capsule,delayed 40 mg PO DAILY #90 caps 05/08/23 release hyoscyamine sulfate 0.125 mg tablet 0.125 mg PO QID PRN dyspepsia #7 09/22/23 tabs loperamide 2 mg capsule 2 mg PO Q4H PRN Diarrhea #12 caps 10/30/23 oseltamivir 75 mg capsule (Tamiflu) 75 mg PO BID #2 caps 10/30/23 hyoscyamine sulfate 0.125 mg tablet 0.25 mg (2 x 0.125 mg) PO QID PRN 02/05/24 dyspepsia #7 tabs omeprazole 20 mg capsule,delayed 20 mg PO DAILY #20 caps 02/05/24 release ondansetron 4 mg disintegrating 4 mg PO Q8H PRN nausea and 02/05/24 tablet vomiting #10 tabs Allergies Allergy/AdvReac Type Severity Reaction Status Date / Time No Known Allergies Allergy Verified 02/05/24 17:38 Review of Systems Review of Systems Yes all other systems are reviewed and are negative [facility] Past Medical History Attestation statement: The following information was validated with the patient. Source: old records reviewed Medical History Chronic myelogenous leukemia Arthritis Depression Chronic neck pain History of alcohol abuse Osteoarthritis Fatty liver Hypercholesteremia Hypertension Surgical History History of prostate surgery Family History Family History Mother Diabetes Father Heart problem Liver cancer Brother Prostate CA Family/Other Breast cancer Paternal Aunt Metastatic cancer Social History Social History Household Members: Unknown / Unable to assess Housing: Apartment Alcohol intake: current Alcohol intake frequency: a few times a week Alcohol type: hard liquor Patient Tobacco Use Status: Never used Tobacco Advance Directives: Yes Advance Directives on File: Yes Advance Directives Date on File: 02/05/24 service: No Current occupational status: disabled Physical Exam ED Vital Signs: Vital Signs - 24 hr 02/05/24 17:35 02/05/24 18:00 02/05/24 20:00 Temperature 98.2 F 98.1 F Pulse Rate 72 76 80 Respiratory Rate 15 15 14 Blood Pressure 142/86 H 147/87 H Pulse Oximetry 95 97 Oxygen Delivery Method Room Air Room Air Room Air 02/05/24 22:00 02/05/24 23:16 02/05/24 23:22 Temperature 98.2 F 98.2 F 98.2 F Pulse Rate 71 71 71 Respiratory Rate 14 14 14 Blood Pressure 134/79 134/79 134/79 Pulse Oximetry 95 95 95 Oxygen Delivery Method Room Air Room Air Room Air BMI result Body Mass Index 29.0 Appearance: Alert.?Oriented to person, place and time. No acute distress.?Normal affect. Eyes: Pupils equal, round and reactive to light.? ENT: Pharynx normal.?? Neck: Normal inspection.? Neck supple.?? CVS: Heart sounds normal. Normal heart rate and rhythm.? Pulses normal.?? Respiratory: No respiratory distress.? Lung sounds clear to auscultation bilaterally?? Abdomen: Abdomen is round, semifirm, significant tenderness upon palpation over the epigastric and right upper quadrant, mild tenderness upon palpation diffusely of the lower abdomen. No guarding. Normoactive bowel sounds. No pulsatile mass.?? Skin: Skin warm and dry.? Normal skin color.? Extremities: No lower extremity edema.? Neuro: Moves all extremities spontaneously. Sensation intact bilaterally. Ambulates with normal steady gait. Course Reevaluation(s) Reevaluation #1: CBC consistent with baseline. Hyponatremia chronic likely secondary to ETOH consumption of the elevated AST/ALT as seen in the past, likely multifactorial secondary to EtOH, in addition to hepatic steatosis as seen on ultrasound. No acute intra-abdominal pathology on CT or ultrasound, no colitis, diverticulitis, cirrhosis, biliary pathology. Symptoms appear most consistent with gastritis, pain was unrelieved with morphine, received GI cocktail with improvement in pain. He is tolerating oral intake at this time. Scale was negative, noted to have a soft light brown bowel movements. Medical Decision Making Medical Decision Making MDM Narrative: Patient is a 69-year-old male with past medical history of CML, polysubstance use disorder, arthritis, depression, hepatic steatosis, hypercholesterolemia, hypertension, alcohol use disorder presenting for abdominal pain and black tarry stools as per HPI. Overall he appears uncomfortable, no respiratory distress, he is able to speak clear full sentences, abdominal examination most notable for significant tenderness upon palpation over the epigastrium and right upper quadrant, is rounded and semifirm but there is no guarding. Will obtain CBC to evaluate for leukocytosis/ anemia, CMP and lipase to evaluate for abnormal electrolytes /abnormal renal function/ abnormal hepatic/biliary function, CT of the abdomen and pelvis, occult stool, and Urinalysis. Will try morphine IV for pain, Zofran IV for nausea, Protonix IV and 1 L normal saline Differential Diagnosis Differential Diagnoses: The differential diagnosis associated with the presentation includes (GI bleed, gastritis, cholecystitis, hepatitis, ascites, diverticulitis) Admission/Observation Consideration of admission/observation: Escalation of care including admission/observation considered (See narrative above and course narrative for further detail) Lab Data MDM Lab Attestation statement: I reviewed the patient's lab results. CBC is without leukocytosis or anemia, mild thrombocytopenia 142,000 which has been seen on prior. Urinalysis without infection. mildly elevated AST ALT consistent with prior, lipase within normal range. No lactic acidosis. No KALA. 02/05/24 18:00 02/05/24 18:00 Labs: Lab Results 02/05/24 02/05/24 02/05/24 Range/Units 17:55 18:00 19:28 WBC 5.8 (4.8-10.8) X10*3/uL RBC 4.97 (4.60-5.80) X10*6/uL Hgb 15.6 (14.0-18.0) g/dl Hct 42.6 (42.0-52.0) % MCV 85.7 (80.0-98.0) fL MCH 31.4 (27.0-33.0) pg MCHC 36.6 H (31.0-36.0) g/dl RDW 12.6 (11.0-16.0) % Plt Count 142 L (160-400) X10*3/uL MPV 11.9 (9.4-12.4) fL Immature Gran % (Auto) 0.2 (0.0-0.4) % Neut % (Auto) 69.7 (45-73) % Lymph % (Auto) 20.1 (20-40) % [place] % (Auto) 7.8 (2-11) % Eos % (Auto) 1.7 (0-4) % Baso % (Auto) 0.5 (0-2) % Lymph # (Auto) 1.2 (1.2-4.9) X10*3/uL [place] # (Auto) 0.5 (0.1-1.2) X10*3/uL Eos # (Auto) 0.1 (0.0-0.4) X10*3/uL Baso # (Auto) 0.0 (0.0-0.2) X10*3/uL Abs Immat Gran (auto) 0.01 (0.00-0.03) X10*3/uL Absolute Neuts (auto) 4.0 (2.0-8.3) x10*3/uL Absolute Nucleated RBC 0.000 (0.0-0.012) X10*3/uL Nucleated RBC % (auto) 0.0 (0.0-0.2) /100WBC PT 13.6 H (11.1-13.3) SEC INR 1.1 (0.9-1.1) Sodium 130 L (135-145) mmol/L Potassium 3.1 L (3.3-5.1) mmol/L Chloride 92 L (96-108) mmol/L Carbon Dioxide 27 (22-29) mmol/L Anion Gap 14 (12-20) BUN 4 L (9-16) mg/dL Creatinine 0.72 (0.5-1.4) mg/dL Estim Creat Clear Calc 98.5 Estimated GFR > 60 Random Glucose 114 (60-115) mg/dL Lactic Acid 1.7 (0.5-2.0) mmol/L Calcium 9.1 D (8.4-10.2) mg/dL Magnesium 2.0 (1.6-2.6) mg/dL Total Bilirubin 1.0 (0.0-1.0) mg/dL AST 66 H (5-37) U/L ALT 45 H (0-40) U/L Alkaline Phosphatase 112 (39-117) U/L Total Protein 8.5 H (6.5-8.0) g/dL Albumin 3.8 (3.5-5.0) g/dL Lipase 28 (8-78) U/L Urine Color Yellow Urine Appearance Clear Urine pH 7.5 (5.0-9.0) Ur Specific [place] <= 1.005 (1.005-1.025) Urine Protein Negative (Neg-Trace) mg/dL Urine Glucose (UA) Negative (Negative) mg/dL Urine Ketones Negative (Negative) mg/dL Urine Blood Negative (Negative) Urine Nitrite Negative (Negative) Ur Leukocyte Esterase Negative (Negative) Stool Occult Blood NEGATIVE (NEGATIVE) Influenza Type A (PCR) NEGATIVE (Negative) Influenza Type B (PCR) NEGATIVE (Negative) RSV RNA Qual (PCR) NEGATIVE (Negative) SARS-CoV-2 RNA (RT-PCR) NEGATIVE (Negative) Radiology Impression Discussion of test interpretation with radiology: I have reviewed the radiologist's reading. Radiologist Impression: FINDINGS: LUNG BASES: Minimal linear dependent atelectasis bilaterally. Extensive coronary artery calcification. LIVER, GALLBLADDER, AND BILIARY TREE: Diffuse fatty infiltration of the liver with hypertrophy of the left lobe. There is heterogeneous attenuation likely representing. Degrees of fatty infiltration. No focal hepatic lesion or obvious biliary ductal dilatation seen The gallbladder is unremarkable with no evidence of radiopaque gallstones, gallbladder wall thickening, or obvious pericholecystic inflammatory changes. PANCREAS: Unremarkable. SPLEEN: Unremarkable. ADRENAL GLANDS: Unremarkable. KIDNEYS AND URETERS: The kidneys are normal in size, shape, and attenuation. Small bilateral renal cortical cysts No hydronephrosis, hydroureter, or perinephric stranding. No calculi. BLADDER: Unremarkable. GASTROINTESTINAL TRACT: Specific attention was given to the bowel. A few scattered colonic diverticula are seen but I do not appreciate any focal colonic wall thickening or pericolonic inflammatory change to suggest diverticulitis. Visualized appendix unremarkable. Small bowel is grossly unremarkable. Stomach is decompressed and difficult to assess in this setting ABDOMINAL WALL: No significant hernia is appreciated. LYMPHOVASCULAR STRUCTURES: Vascular calcification within the aorta iliac system. No bulky adenopathy PELVIC VISCERA: Unremarkable. OSSEOUS STRUCTURES: Mild degenerative changes in the spine CT/CT abdomen pelvis w IV con IMPRESSION: Chronic appearing changes as described above. US/US abdomen limited IMPRESSION: No acute findings. The liver is enlarged and steatotic. The gallbladder is normal in appearance. External Record Review External record reviewed: Outpatient record Prescription Management I considered prescription management with: Other Medications Administered Discontinued Medications Generic Name Dose Route Start Last Admin Trade Name Freq PRN Reason Stop Dose Admin Al Hydroxide/Mg Hydroxide 30 ml 02/05/24 21:06 02/05/24 21:44 Magnesium Hydrox/Alum Hydrox 30 Ml Oral.Susp PO 02/05/24 21:07 30 ml ONCE ONE Administration Sodium Chloride 1,000 mls @ 999 mls/hr 02/05/24 17:30 02/05/24 20:44 Ns IV 02/05/24 18:30 Infused .Q1H1M MCKENNA Infusion Iohexol 100 ml 02/05/24 19:07 02/05/24 19:07 Iohexol 350 Mg/Ml 100 Ml Infus..Btl IV 02/05/24 19:08 85 ml ONCE ONE Administration Lidocaine HCl 15 ml 02/05/24 21:06 02/05/24 21:44 Lidocaine Hcl Viscous 2 % 15 Ml Solution MUCOUS MEM 02/05/24 21:07 15 ml ONCE ONE Administration Morphine Sulfate 4 mg 02/05/24 17:29 02/05/24 18:20 Morphine Sulfate 4 Mg/Ml Cartridge IVPUSH 02/05/24 17:30 4 mg ONCE ONE Administration Protocol Ondansetron HCl 4 mg 02/05/24 17:29 02/05/24 18:20 Ondansetron Hcl 4 Mg/2 Ml Vial IVPUSH 02/05/24 17:30 4 mg ONCE ONE Administration Ondansetron HCl 4 mg 02/05/24 21:06 02/05/24 21:44 Ondansetron Hcl 4 Mg/2 Ml Vial IVPUSH 02/05/24 21:07 4 mg ONCE ONE Administration Pantoprazole Sodium 40 mg 02/05/24 18:26 02/05/24 19:25 Pantoprazole Sodium 40 Mg/10 Ml Vial IVPUSH 02/05/24 18:27 40 mg ONCE ONE Administration Critical Care Time Critical Care Time Critical Care Time: Yes Total Critical Care Time: 35 Attestation: I personally attest to this critical care time spent taking care of the patient exclusive of all other billable procedures was approximately 35 minutes including initial evaluation of patient, ordering tests, IV morphine for pain management and re-evaluation, documentation, re-evaluation. Discharge Plan Discharge Clinical Impression: Gastritis Patient Disposition: Home, Self-Care Additional Instructions: Please contact your primary care doctor and arrange for a follow-up visit. Return to the emergency department any new or worsening symptoms or concerns Prescriptions: New ondansetron 4 mg tablet,disintegrating 4 mg PO Q8H PRN (Reason: nausea and vomiting) Qty: 10 0RF omeprazole 20 mg capsule,delayed release(DR/EC) 20 mg PO DAILY Qty: 20 0RF hyoscyamine sulfate 0.125 mg tablet 0.25 mg PO QID PRN (Reason: dyspepsia) Qty: 7 0RF No Action atorvastatin 80 mg tablet 1 tab PO BEDTIME metoprolol succinate 50 mg tablet extended release 24 hr 1 tab PO DAILY chlorthalidone 25 mg tablet 2 tab PO DAILY amlodipine 10 mg tablet 1 tab PO DAILY losartan 100 mg tablet 1 tab PO DAILY famotidine 40 mg tablet 0.5 tab PO DAILY Qty: 30 6RF omeprazole 40 mg Capsule,Delayed Release(Dr/Ec) 40 mg PO DAILY Qty: 90 3RF loperamide 2 mg Capsule 2 mg PO Q4H PRN (Reason: Diarrhea) Qty: 12 0RF oseltamivir [Tamiflu] 75 mg Capsule 75 mg PO BID Qty: 2 0RF hyoscyamine sulfate 0.125 mg tablet 0.125 mg PO QID PRN (Reason: dyspepsia) Qty: 7 0RF Referrals: Physician,Unknown J [Primary Care Provider] - Interventions: ED Discharge Assessment Last Done: 02/05/24 23:22 Discharge Date/Time: 02/05/24 23:22 Print Language: Chilean
[2024-02-05 18:16] LABS: INTERNATIONAL NORM RATIO 1.1 (0.9-1.1); Prothrombin Time 13.6 SEC (11.1-13.3)
[2024-02-05 18:18] LABS: Lactic Acid 1.7 mmol/L (0.5-2.0)
[2024-02-05] MEDS: 0.9 % Sodium Chloride 1,000 ML 999 ML IV (18:20)
[2024-02-05] MEDS: Morphine Sulfate 4 MG/ML CARTRIDGE IVPUSH (18:20)
[2024-02-05] MEDS: ondansetron HCL 4 MG/2 ML VIAL IVPUSH ×2 (18:20→21:44)
[2024-02-05 18:24] LABS: Alanine Aminotransferase 45 U/L (0-40); Albumin Level 3.8 g/dL (3.5-5.0); Alkaline Phosphatase 112 U/L (39-117); Anion Gap 14 (12-20); Aspartate Amino Transferase 66 U/L (5-37); Blood Urea Nitrogen 4 mg/dL (9-16); Calcium 9.1 mg/dL (8.4-10.2); Carbon Dioxide 27 mmol/L (22-29); Chloride 92 mmol/L (96-108); Creatinine Clr Calc Pharmacy 98.5; Estimated Glomerular Filt Rate > 60; Glucose Random 114 mg/dL (60-115); Lipase 28 U/L (8-78); Potassium 3.1 mmol/L (3.3-5.1); Sodium 130 mmol/L (135-145); Total Protein 8.5 g/dL (6.5-8.0)
[2024-02-05 18:52] LABS: Influenza A PCR NEGATIVE (Negative); Influenza B PCR NEGATIVE (Negative); Resp Syncy Virus RNA Qual PCR NEGATIVE (Negative); SARS COV2 PCR INHOUSE NEGATIVE (Negative)
[2024-02-05] MEDS: iohexoL 350 MG/ML 100 ML INFUS..BTL IV (19:07)
[2024-02-05] MEDS: Pantoprazole Sodium 40 MG/10 ML VIAL IVPUSH (19:25)
[2024-02-05 19:33] LABS: OBS Int Ctl Valid YES; OBS1 NEGATIVE (NEGATIVE)
[2024-02-05 20:00] VITALS: BP 147/87; PULSE 80; RESP 14; TEMP 36.7; O2SAT 97
[2024-02-05] MEDS: Magnesium Hydrox/Alum Hydrox 30 ML ORAL.SUSP PO (21:44)
[2024-02-05] MEDS: Lidocaine HCl Viscous 2 % 15 ML SOLUTION MUCOUS MEM (21:44)
[2024-02-05 22:00] VITALS: BP 134/79; PULSE 71; RESP 14; TEMP 36.8; O2SAT 95
[2024-02-05 23:16] VITALS: BP 134/79; PULSE 71; RESP 14; TEMP 36.8; O2SAT 95
[2024-02-05 23:22] VITALS: BP 134/79; PULSE 71; RESP 14; TEMP 36.8; O2SAT 95
== END 2024-02-05 23:22 | disposition home or self-care (01) ==
PROVIDERS: Nurse Practitioner Family; Emergency Provider Internal Medicine
DX: K29.70 Gastritis, unspecified, without bleeding (principal); R10.12 Left upper quadrant pain; R11.2 Nausea with vomiting, unspecified; R19.7 Diarrhea, unspecified; Z03.818 Encounter for observation for suspected exposure to other biological agents ruled out; Z79.899 Other long term (current) drug therapy
CPT/HCPCS: 0241U; 74177; 76705; 80053; 81003; 82272; 83605; 83690; 83735; 85025; 85610; 96361; 96374; 96375; 96376; 99284; J2270; J2405; J2470; Q9967

== ENCOUNTER 2024-06-21 14:16 | Outpatient (REF) | payer OTHER, SELFPAY ==
[2024-06-21 16:00] LABS: MANUAL DIFF FLAG NO
[2024-06-21 16:04] LABS: Basophils Percent Auto 0.6 % (0-2); Eosinophils Absolute Auto 0.4 X10*3/uL (0.0-0.4); Eosinophils Percent Auto 6.1 % (0-4); Hematocrit 39.7 % (42.0-52.0); Imm Gran Abs Auto 0.03 X10*3/uL (0.00-0.03); Imm Gran Pct Auto 0.5 % (0.0-0.4); Lymphocytes Absolute Auto 1.6 X10*3/uL (1.2-4.9); Lymphocytes Percent Auto 25.1 % (20-40); Mean Corpuscular HGB Conc 35.3 g/dl (31.0-36.0); Mean Corpuscular Hemoglobin 32.6 pg (27.0-33.0); Mean Corpuscular Volume 92.5 fL (80.0-98.0); Mean Platelet Volume 11.6 fL (9.4-12.4); Monocytes Absolute Auto 0.5 X10*3/uL (0.1-1.2); Monocytes Percent Auto 7.2 % (2-11); Neutrophils Absolute Auto 3.8 x10*3/uL (2.0-8.3); Neutrophils Percent Auto 60.5 % (45-73); Platelet Count 147 X10*3/uL (160-400); Red Blood Count 4.29 X10*6/uL (4.60-5.80); Red Cell Distribution Width 13.2 % (11.0-16.0); White Blood Count 6.3 X10*3/uL (4.8-10.8)
[2024-06-21 17:32] LABS: Alanine Aminotransferase 27 U/L (0-40); Albumin Level 3.4 g/dL (3.5-5.0); Alkaline Phosphatase 114 U/L (39-117); Anion Gap 9 (12-20); Aspartate Amino Transferase 39 U/L (5-37); Bilirubin Total 0.8 mg/dL (0.0-1.0); Blood Urea Nitrogen 4 mg/dL (9-16); Carbon Dioxide 28 mmol/L (22-29); Chloride 100 mmol/L (96-108); Estimated Glomerular Filt Rate > 60; Glucose Random 158 mg/dL (60-115); Potassium 3.7 mmol/L (3.3-5.1); Sodium 133 mmol/L (135-145); Total Protein 8.1 g/dL (6.5-8.0)
== END 2024-06-21 14:17 | disposition home or self-care (01) ==
LOC: HO.HHCL 14:16
PROVIDERS: Visit Provider Internal Medicine
DX: C92.10 Chronic myeloid leukemia, BCR/ABL-positive, not having achieved remission (principal); R73.02 Impaired glucose tolerance (oral)
CPT/HCPCS: 36415; 80053; 85025

== ENCOUNTER 2025-05-28 13:57 | Outpatient (REF) | payer OTHER, SELFPAY ==
[2025-05-28 16:08] LABS: MANUAL DIFF FLAG NO
[2025-05-28 16:19] LABS: Hematocrit 41.9 % (42.0-52.0); Hemoglobin 14.5 g/dl (14.0-18.0); Imm Gran Abs Auto 0.01 X10*3/uL (0.00-0.03); Imm Gran Pct Auto 0.2 % (0.0-0.4); Lymphocytes Absolute Auto 1.8 X10*3/uL (1.2-4.9); Mean Corpuscular HGB Conc 34.6 g/dl (31.0-36.0); Mean Corpuscular Hemoglobin 31.3 pg (27.0-33.0); Mean Corpuscular Volume 90.5 fL (80.0-98.0); NRBC Abs Auto 0.000 X10*3/uL (0.0-0.012); NRBC Pct Auto 0.0 /100WBC (0.0-0.2); Platelet Count 153 X10*3/uL (160-400); Red Blood Count 4.63 X10*6/uL (4.60-5.80); White Blood Count 6.0 X10*3/uL (4.8-10.8)
[2025-05-28 16:35] LABS: Alanine Aminotransferase 22 U/L (0-40); Albumin Level 4.0 g/dL (3.5-5.0); Alkaline Phosphatase 115 U/L (39-117); Anion Gap 11 (12-20); Aspartate Amino Transferase 31 U/L (5-37); Blood Urea Nitrogen 5 mg/dL (9-16); Calcium 8.8 mg/dL (8.4-10.2); Carbon Dioxide 28 mmol/L (22-29); Chloride 104 mmol/L (96-108); Estimated Glomerular Filt Rate > 60; Magnesium 2.1 mg/dL (1.6-2.6); Potassium 3.7 mmol/L (3.3-5.1); Sodium 139 mmol/L (135-145); Total Protein 7.8 g/dL (6.5-8.0)
--- OUTSIDE RECORDS SUMMARY | 2025-05-28 20:02 | XMS_ITS | Clinical Summary ---
Author Organization [employer] Address [address] [facility] 7t [place] [address] Care Team Providers Care Contract Negotiator Name Role Phone Radha Martinez MD Primary Care Pro vider Allergies Active Allergy Reactions Criticality Noted Date Comments Yoin Inhibitors Unknown Medications hydrocortisone 2.5 % creamIndications: Bilateral lower extremity edema Apply topically 2 times daily. Apply twice daily to affected area 28 g 2 023 Active busPIRone (Buspar) 10 MG tablet 023 Active amoxicillin (Amoxil) 500 MG tablet 023 Active FLUoxetine (PROzac) 40 MG capsule 023 Active hydrOXYzine pamoate (Vistaril) 25 MG capsule 023 Active naloxone (Narcan) 4 mg/0.1 mL nasal spray Administer 0.1 mL into affected nostril(s). 021 Active nilotinib (Tasigna) 200 MG chemo capsule Take 1.5 capsules by mouth every 12 (twelve) hours. Active omeprazole (PriLOSEC) [address] capsule Take 40 mg by mouth in the morning. 023 Active ondansetron ODT (Zofran-ODT) 4 MG disintegrating tablet 024 Active predniSONE (Deltasone) 20 MG tablet 023 Active QUEtiapine (SEROquel) 50 MG tablet 023 Active betamethasone valerate (Valisone) 0.1 % cream Apply topically if needed in the morning and at bedtime (dryness). 45 g 2 11/13/2 024 Active ammonium lactate (Amlactin) 12 % cream Apply topically if needed for dry skin. 385 g 2 024 2024 Active liver oil-zinc oxide (Desitin) 40 % ointment Apply topically if needed for irritation. 56 g 024 Active clotrimazole (Lotrimin) 1 % cream APPLY 1 GRAM TOPICALLY TO AFFECTED AREA(S) TWICE DAILY FOR 28 DAYS 30 g 1 024 Active famotidine (Pepcid) 20 MG tabletIndications :Gastroesophageal reflux disease without esophagitis TAKE 1 TABLET BY MOUTH EVERY MORNING 90 tablet 3 025 Active atorvastatin (Lipitor) 80 MG tabletIndications :Hyperlipidemia, unspecified hyperlipidemia type TAKE 1 TABLET BY MOUTH AT BEDTIME 90 tablet 2 025 Active losartan (Cozaar) 100 MG tabletIndications :Essential (primary) hypertension TAKE 1 TABLET BY MOUTH EVERY EVENING 90 tablet 2 025 Active metoprolol succinate XL (Toprol-XL) 50 MG 24 hr tablet TAKE 1 TABLET BY MOUTH EVERY EVENING DO NOT BREAK, CRUSH, DISSOLVE OR CHEW 90 tablet 3 025 Active chlorthalidone (Hygroton) 50 MG tablet TAKE 1 TABLET BY MOUTH EVERY MORNING 30 tablet 025 Active amLODIPine (Norvasc) 10 MG tabletIndications :Essential (primary) hypertension Take 1 tablet (10 mg) by mouth at bedtime. 90 tablet 025 Active amLODIPine (Norvasc) 10 MG tabletIndications :Essential (primary) hypertension TAKE 1 TABLET BY MOUTH EVERY EVENING 90 tablet 025 2024 Discontinued(R eorder (will not trigger notification to Pharmacy)) Active Problems Problem Noted Date Diagnosed Date Candidiasis of perineum 06/19/2024 Assessment & Plan (07/08/2024 1:01 PM EST): Exacerbating eczema Rx Clotrimazole cream +zinc oxide Leg edema 06/19/2024 Assessment & Plan (07/08/2024 1:00 PM EST): Unclear if related to liver cirrhosis/low albumin vs venous insufficiency. Order abd US, labs Advised to wear compressions stockings. FU w PCP or w me in 1m Substance use disorder 12/15/2022 Impaired glucose tolerance 11/26/2018 Abnormal LFTs 10/31/2018 09/14/2023 Benign prostatic hyperplasia without lower urinary tract symptoms 02/21/2018 Chronic myeloid leukemia ([facility]/HCC) 02/21/2018 Assessment & Plan (07/08/2024 1:01 PM EST): Out of care, likely due to Substance abuse issues? Order labs, loreto Mckeon with PCP Essential hypertension 02/21/2018 Hyperlipidemia 02/21/2018 Mood disorder 02/21/2018 Chronic alcoholism in remission ([facility]/HCC) 201709/14/2023 Cocaine dependence in remission ([facility]) 201709/14/2023 Post-traumatic osteoarthritis of both knees 02/0409/14/2023 Continuous opioid dependence ([facility]) 8 09/14/2023 Encounters Date Type Department Care Team Description 05/27/[address] [facility] [address] [place] [address] Radha Martinez MD 05/26/[address] [facility] [address] [place] [address] Bo Kumar MD Essential (primary) hypertension 05/23/[address] [facility] [address] [place] [address] Radha Martinez MD Essential (primary) hypertension 05/23/2025 Refill [facility] [address] [place] [address] Radha Martinez MD 04/28/[address] [facility] [address] [place] [address] Dominique Sabillon MA 04/28/[address] [facility] [address] [place] [address] Dominique Sabillon MA 04/25/[address] [facility] [address] [place] [address] Radha Martinez MD Hyponatremia (Primary Dx); Hypokalemia 04/25/[address] [facility] [address] [place], [place] [phone] Name, MD Bo 04/18/[address] [facility] [address] [place], [place] [phone] Radha Martinez MD dec recall from Last 3 Months Immunizations Immunization Administration Dates Next Due Hep A, Adult 05/18/2006 Influenza injectable quadriv alent IIV4 with preservative 05/04/2015 Influenza injectable quadriv alent preservative free 05/14/2019,05/21/2018 Influenza, Split (incl. elena fied surface antigen) 04/13/2012 Pneumococcal Conjugate PCV 20 10/06/2023 Pneumococcal Polysaccharide PPSV23 08/20/2018,,10/31/2006 RSV Bivalent 10/06/2023 Td (adult), 5 Lf tetanus tox oid, preservative free, adsorbed 12/07/2012 Tdap 01/05/2006 Zoster, Recombinant 10/06/2023 Social History Tobacco Use Types Packs/Day Years Used Date Smoking Tobacco: Never Smokeless Tobacco: Never Tobacco Cessation:Counseling Given: Not Answered Alcohol Use Standard Drinks/Week Comments Never 0 (1 standard drink = 0.6 oz pur e alcohol) Depression Answer Date Recorded Patient Health Questionnaire-9 Score 3 10/06/2023 Patient Health Questionnaire-9 Score 3 10/06/2023 Last PHQ-9: Questionnaire Data Not on file 0 10/06/2023 Housing Stability Answer Date Recorded What is your housing situation today? I have soha knott 10/06/[address] you li ve. Do you have problems with any of the following? None of the above 10/06/2023 Food Insecurity Answer Date Recorded Within the past 12 months, y ou worried that your food would run out before you got money to buy more: Never True 10/06/2023 Within the past 12 months,th e food you bought just didn't last and you didn't have enough money to get more: Never True 08/2023 Transportation Answer Date Recorded In the past 12 months, has l ack of transportation kept you from medical appts, meetings, work or from getting things needed for daily living? No 10/06/2023 Utilities Answer Date Recorded In the past 12 months, has t he electric, gas, oil or water company threatened to shut off services in your home? No 10/06/2023 Depression Answer Date Recorded Patient Health Questionnaire-2 Score 3 10/06/2023 Sex and Gender Information Value Date Recorded Sex Assigned at Male 06/06/2022 10:17 AM EDT Legal Sex Male 10:17 AM EDT Gender Identity Male 06/06/2022 10:17 AM EDT Sexual Orientation Don't know 06/06/2022 10 :17 AM EDT Last Filed Vital Signs Vital Sign Reading Time Taken Comments Blood Pressure 139/79 06/19/2024 3:39 PM EST Pulse 84 06/19/2024 3:39 PM EST Temperature 36.3 C (97.3 F) 06/19/2024 3:39 PM EST Respiratory Rate 17 06/19/2024 3:39 PM EST Oxygen Saturation 97% 06/19/2024 3:39 PM EST Inhaled Oxygen Concentration - - Weight 80.3 kg (177 lb) 06/19/2024 3:39 PM EST Height 167.6 cm (5' 6 ) 10/06/2023 9:58 AM EST Body Mass Index 28.57 10/06/2023 9:58 AM EST Plan of Treatment Upcoming Encounters Date Type Department Care Team (Late st Contact Info) Description 07/09/2025 11:15 AM EST Office Visit [facility] [address] [place] [phone] Radha Martinez MD [address] [place] [address] Health Maintenance Due Date Last Done Comments CT Colonography 1956 Colonoscopy 1956 Colorectal Cancer Screening 1956 Dental Oral Exam 1956 Dental Prophylaxis 1956 Dental X-Ray: Bitewings 1956 Dental X-Ray: Full Mouth 1956 FIT DNA/Cologuard 1956 FIT 1956 FOBT 1956 Sigmoidoscopy 1956 Alcohol/Substance Use Screening 1968 COVID-19 Vaccine (2 - Moderna risk series) 11/21/2022 10/24/2022 DTaP/Tdap/Td Vaccines (3 - Td or Tdap) 12/07/2022 12/07/2012, 01/05/2006 Zoster Vaccines (2 of 2) 12/01/2023 10/06/2023 Depression Screening 10/05/2024 10/06/2023, 10/06/19 SDOH Screening 10/05/2024 10/06/2023 Tobacco Screening 10/05/2024 10/06/2023 Influenza Vaccine (#1) 2025 9, 05/21/2018, 05/04/2015, Additional history exists Lipid Panel 01/26/2027 01/26/2022 Hepatitis A Vaccines Aged Out 05/18/2006 No long er eligible based on patient's age to complete this topic Hepatitis C Screening Completed 10/06/2023, 020 Pneumococcal Vaccine: 50+ Years Completed 10/06/2023, 08/20/2018, 01/05/2007, Additional history exists RSV Patients and Patients Aged 60 years or older Completed 10/06/2023 HIB Vaccines Aged Out No longer eligi ble based on patient's age to complete this topic HPV Vaccines Aged Out No longer eligi ble based on patient's age to complete this topic Hepatitis B Vaccines Aged Out No long er eligible based on patient's age to complete this topic IPV Vaccines Aged Out No longer eligi ble based on patient's age to complete this topic Meningococcal B Vaccine Aged Out No l onger eligible based on patient's age to complete this topic Meningococcal Vaccine Aged Out No yogesh serjio eligible based on patient's age to complete this topic RSV under 20 months Aged Out No longe r eligible based on patient's age to complete this topic Rotavirus Vaccines Aged Out No longer eligible based on patient's age to complete this topic Procedures Procedure Name Priority Date/Time Associated Diagnosis Comments MAGNESIUM Routine 05/28/2025 2:05 PM EDT Hypokalemia COMPREHENSIVE METABOLIC PANEL Routine 05/28/2025 2:05 PM EDT Hypokalemia CBC WITH AUTO DIFFERENTIAL Routine 05/28/2025 2:05 PM EDT Chronic myeloid leukemia (CMS/HCC) (HCC) HEPATITIS PANEL, GENERAL Routine 10/06/2023 11:03 AM EST Abnormal LFTs LIPID PANEL, STANDARD Routine 01/26/2022 10:23 AM EDT from Last 3 Months or Most Recently Relevant to Health Maintenance Results * Magnesium (05/28/2025 2:05 PM EDT) Magnesium 2.1 1.6 - 2.6 mg/dL [facility] Blood Venous blood specimen / Unknown 05/28/2025 2:05 PM EDT 05/28/2025 4:07 PM EDT Radha Fry MD LAB BLOOD ORDERAB LES Final Result [facility] [address] [place] [phone] * (ABNORMAL) Comprehensive Metabolic Panel (05/28/2025 2:05 PM EDT) Sodium 139 135 - 145 mmol/L [facility] Potassium 3.7 3.3 - 5.1 mmol/L [facility] Chloride 104 96 - 108 mmol/L [facility] Carbon Dioxide 28 22 - 29 mmol/L [facility] Anion Gap 11(L) 12 - 20 [facility] Urea Nitrogen (BUN) 5(L) 9 - 16 mg/dL [facility] Creatinine, Serum 0.63 0.5 - 1.4 mg/dL [facility] Estimated Glomerular Filt Rate >60 [facility] Comment:Chronic Kidney Disea se: Estimated GFR < 60 mL/min/1.85e4Flxbpk Kidney Disease: Estimated GFR < 15 mL/min/1.73m2 Glucose 111 60 - 115 mg/dL [facility] Calcium 8.8 8.4 - 10.2 mg/dL [facility] Bilirubin, Total 0.5 0.0 - 1.0 mg/dL [facility] Aspartate Amino Transferase 31 5 - 37 U/L [facility] Alanine Aminotransferase 22 0 - 40 U/L [facility] Total Protein 7.8 6.5 - 8.0 g/dL [facility] Albumin Level 4.0 3.5 - 5.0 g/dL [facility] Alkaline Phosphatase 115 39 - 117 U/L [facility] Blood Venous blood specimen / Unknown 05/28/2025 2:05 PM EDT 05/28/2025 4:07 PM EDT us Radha Fry MD LAB BLOOD ORDERAB LES Final Result Performing Organization Address [facility] Co de Phone Number [facility] [address] [place] [phone] * Hepatitis A,B,C Profile (10/06/2023 11:03 AM EST) Hepatitis A IgM Nonreactive Nonreactive [facility] Comment:IgM antibodies to MADDEN V not detected; does not exclude earlyacute or recovered HAV infection. ~Hepatitis B Surface Antibody GRAYZONE Nonreactive [facility] Comment:GRAYZONE: 8.00 mIU/m L TO 11.99 mIU/mLTHE IMMUNE STATUS OF THE INDIVIDUAL SHOULD BE FURTHERASSESSED BY CONSIDERING OTHER FACTORS, SUCH CLINICALSTATUS, FOLLOW-UP TESTING, ASSOCIATED RISK FACTORS, AND THEUSE OF ADDITIONAL DIAGNOSTIC INFORMATION. Hepatitis B Core Antibody Reactive Nonreactive [facility] Comment:Presumptive evidence of anti-HBc. Hepatitis C Antibody Nonreactive Nonreactive [facility] Comment:Antibodies to HCV no t detected; does not exclude early acuteHCV infection. Hepatitis B Surface Ag Negative Negative [facility] Blood Venous blood specimen / Unknown 10/06/2023 11:03 AM EST 10/06/2023 1:23 PM EST us Ashley KAISERP LAB BLOOD ORDERABLES Final Resu lt Performing Organization Address City/[facility]/ZIP Co de Phone Number [facility] [address] [place] [phone] * (ABNORMAL) LIPID PANEL, STANDARD (01/26/2022 10:23 AM EDT) Chol/HDLC Ratio 2.7 <5.0 (calc) [facility] Cholesterol, Total 130 <200 mg/dL [facility] HDL Cholesterol 48 > OR = 40 mg/dL [facility] LDL Cholesterol 54 mg/dL (calc) [facility] Comment: Reference range: <100 Desirable range <100 mg/dL for primary prevention; <70 mg/dL for patients with CHD or diabetic patients with > or = 2 CHD risk factors. LDL-C is now calculated using the Marlon-Mercedes calculation, which is a validated novel method providing better accuracy than the Friedewald equation in the estimation of LDL-C. Marlon SS et al. ISSA. 2013;310(19): 2244-6325 (http://education.ContentRealtime/faq/CLH282) Non-HDL Cholesterol 82 <130 mg/dL (calc) [facility] Comment: For patients with diabetes plus 1 major ASCVD risk factor, treating to a non-HDL-C goal of <100 mg/dL (LDL-C of <70 mg/dL) is considered a therapeutic option. Triglycerides 212(H) <150 mg/dL [facility] Comment: If a non-fasting specimen was collected, consider repeat triglyceride testing on a fasting specimen if clinically indicated. Eliz et al. J. of Clin. Lipidol. 2015;9:129-169. 01/26/2022 10:2 3 AM EDT us Amber Camejo MD LAB BLOOD ORDERABLES Final R esult [facility] [address] from Last 3 Months or Most Recently Relevant to Health Maintenance Insurance [facility] CARE < [address] [place] [phone] DENTAL - [facility] Care Teams Contract Negotiator Relationship Specialty Start Date End Date Radha Martinez MD [address] [place] [phone] PCP - General Internal Medicine 03/06/25
--- OUTSIDE RECORDS SUMMARY | 2025-05-28 20:02 | XMS_ITS | Encounter Summary ---
Author Organization [employer] Address [address] [facility] 7t [place] [address] Care Team Providers Care Rail Car Mechanic Name Role Phone Radha Martinez MD Primary Care Pro vider Encounter Details Date Type Department Care Team (Late st Contact Info) Description 05/27/2025 Refill [facility] [address] [place] [phone] Radha Martinez MD [address] [place] [address] Social History Tobacco Use Types Packs/Day Years Used Date Smoking Tobacco: Never Smokeless Tobacco: Never Alcohol Use Standard Drinks/Week Comments Never 0 [...] Don't know 06/06/2022 10 :17 AM EDT documented as of this encounter Miscellaneous Notes * Telephone Encounter - Radha Fry MD - 05/27/2025 3:29 PM EDT Holding , pt needs to get repeat chem , had hypokalemia Please advise pt to get chem order so can evaluation safety to continue med I requested RN as well to call pt and inform reason why not refilling for now and need for chem Thanks documented in this encounter Plan of Treatment Upcoming Encounters Date Type Department Care Team (Late st Contact Info) Description 07/09/2025 11:15 AM EST Office Visit [facility] [address] [place] [phone] Radha Martinez MD [address] [place] [phone] documented as of this encounter Visit Diagnoses Not on filedocumented in this encounter Additional Health Concerns Assessment Noted Time PHQ-9 Depression Total Score: 3 10/06/19 24 10:01 AM EST documented as of this encounter Care Teams Rail Car Mechanic Relationship Specialty Start Date End Date Radha Martinez MD [address] [place] [phone] PCP - General Internal Medicine 03/06/25 documented as of this encounter
--- OUTSIDE RECORDS SUMMARY | 2025-05-28 20:02 | XMS_ITS | Encounter Summary ---
Author Organization [employer] Address [address] [facility] [address] [place] [address] Care Team Providers Care Lpn Rn Hospice Name Role Phone Radha Martinez MD Primary Care Pro vider Reason for Visit * Reason Comments Med Refill Encounter Details Date Type Department Care Team ([facility] st Contact Info) Description 05/23/2025 Refill [facility] [address] [place], [place] [phone] Radha Martinez MD [address] [place], [place] [phone] Social History Tobacco Use Types Packs/Day Years [...] AM EDT documented as of this encounter Plan of Treatment Upcoming Encounters Date Type Department Care Team (Late st Contact Info) Description 07/09/2025 11:15 AM EST Office Visit [facility] [address] [place] [phone] Radha Martinez MD [address] [place] [phone] documented as of this encounter Visit Diagnoses Not on filedocumented in this encounter Additional Health Concerns Assessment Noted Time PHQ-9 Depression Total Score: 3 10/06/19 24 10:01 AM EST documented as of this encounter Care Teams Lpn Rn Hospice Relationship Specialty Start Date End Date Radha Martinez MD [address] [place] [phone] PCP - General Internal Medicine 03/06/25 documented as of this encounter
--- OUTSIDE RECORDS SUMMARY | 2025-05-28 20:02 | XMS_ITS | Encounter Summary ---
Author Organization [employer] Address [address] [place] [address] Care Team Providers Care Physician Representative Name Role Phone Josselin Velazquez CIRCULATION WORKER Primary Care Provider Estefania Javan Love Primary Care Provider Ashley Barrientos CIRCULATION WORKER Primary Care Provider [phone] Name, Bo GREEN Primary Care Provider [phone] Radha Martinez MD Primary Care Pro vider Encounter Details Date Type Department Care Team (Late Contact Info) Description 12/12/2022 Orders Only [facility] MED & PEDS [address] [place], [place] [phone] Alejandra Singh LPN Social History Tobacco Use Types Packs/Day Years Used Date Smoking Tobacco: Never Assessed Sex and Gender Information Value Date Recorded Sex Assigned at Male 06/06/2022 10:17 AM EDT Legal Sex Male 10:17 AM EDT Gender Identity Male 06/06/2022 10:17 AM EDT Sexual Orientation Don't know 06/06/2022 10 :17 AM EDT COVID-19 Exposure Response Date Recorded In the last 10 days, have yo u been in contact with someone who was confirmed or suspected to have Coronavirus/COVID-19? No / Unsure 12/15/2022 11:35 AM EDT documented as of this encounter Plan of Treatment Upcoming Encounters Date Type Department Care Team (Late Contact Info) Description 07/09/2025 11:15 AM EST Office Visit [facility] MEDICINE [address] [place] [address] Radha Martinez MD [address] [place] [phone] documented as of this encounter Procedures Procedure Name Priority Date/Time Associated Diagnosis Comments URINALYSIS WITH REFLEX MICROSCOPIC Routine 09/22/2023 3:59 PM EST INFLUENZA A B2 ID NOW (GANN) Routine 09/22/2023 3:49 PM EST COVID-19 ID NOW (GANN) Routine 09/22/2023 3:49 PM EST HIGH SENSITIVITY TROPONIN I Routine 09/22/2023 3:49 PM EST MAGNESIUM Routine 09/22/2023 3:49 PM EST LIPASE Routine 09/22/2023 3:49 PM EST HEPATIC FUNCTION PANEL Routine 09/22/2023 3:49 PM EST BASIC METABOLIC PANEL Routine 09/22/2023 3:49 PM EST documented in this encounter Results * Urinalysis w/reflex microscopic (09/22/2023 3:59 PM EST) Color Urine Yellow [facility] Appearance Urine Clear [facility] PH 7.5 5.0 - 9.[address] [facility] Glucose Urine UA Negative Negative mg/dL [facility] Urine Blood Negative Negative [facility] Specific [place] - Urine <=1.005 1.005 - 1.[address] [facility] Urine Protein Negative Neg-Trace mg/dL [facility] Urine Ketones Negative Negative mg/dL [facility] Nitrite Urine Negative Negative [facility] Leukocyte Esterase Urine Negative Negative [facility] 09/22/2023 3:59 PM EST 09/22/2023 4:02 PM EST Narrative [facility] - 09/22/2023 4:16 PM EST Urine, Clean Catch Generic External Data Provider LAB URINE ORDERAB LES Final Result Performing Organization Address City/[facility]/ZIP Co de Phone Number [facility] [address] [place] [phone] * Influenza A B2 ID NOW (Gann) (09/22/2023 3:49 PM EST) IDNOW SERIAL# [id number] [facility] Influenza A Negative Negative [facility] Influenza B2 Negative Negative [facility] Influenza A B2 Note See Note [facility] Comment:The Gann ID NOW In fluenza A B2 test is used for thequalitative detection of influenza A and B from patientswith signs and symptoms of respiratory infection.Negative results do not preclude influenza virus infectionand should not be used as the sole basis for diagnosis,treatment or other patient management decisions.There is a risk of false negative results due to thepresence of variants in the viral targets of the assay, lowlevels of virus in the specimen and co- infection withRespiratory Syncytial Virus. 09/22/2023 3:49 PM EST 09/22/2023 3:56 PM EST Generic External Data Provider LAB MICROBIOLOGY - GENERAL ORDERABLES Final Result Performing Organization Address [facility]/ZIP Co de Phone Number [facility] [address] [place] [phone] * COVID-19 ID NOW (GANN) (09/22/2023 3:49 PM EST) IDNOW SERIAL# [id number] [facility] COVID-19 TEST Negative Negative [facility] COVID-19 NOTE See Note [facility] Comment: Results are for the identification of SARS-CoV2 RNA. TheSARS-CoV2 RNA is generally detectable in respiratory samplesduring the acute phase of infection. Positive results areindicative of the presence of SARS-CoV-2 RNA; clinicalcorrelation with patient history and other diagnosticinformation is necessary to determine patient infectionstatus. Positive results do not rule out bacterial infectionor co- infection with other viruses.Testing facilities within the [place] and [facility] are required to report all positive results tothe appropriate public health authorities.Negative results should be treated as presumptive and, ifinconsistent with clinical signs and symptoms or necessaryfor patient management, should be tested with differentauthorized or cleared molecular tests. Negative results donot preclude SARS-CoV2 RNA infection and should not be usedas the sole basis for patient management decisions. Negativeresults should be considered in the context of a patient'srecent exposures, history and the presence of clinical signsand symptoms consistent with COVID-19.This test has been authorized by the FDA under an EmergencyUse Authorization (EUA) for use by authorized laboratories.Testing performed on the [place] ID NOW utilizing NAAT. 09/22/2023 3:49 PM EST 09/22/2023 3:56 PM EST Generic External Data Provider LAB MOLECULAR CODY GNOSTICS ORDERABLES Final Result Performing Organization Address [facility] Co de Phone Number [facility] [address] [place] [phone] * High Sensitivity Troponin I (09/22/2023 3:49 PM EST) [facility] TROPONIN I HIGH SENSITIVITY <2.7 <3.5 - 35.0 ng/L [facility] Comment:The Gann high sens itivity Troponin-I results should beused in conjunction with other diagnostic information suchas ECG, clinical observations and information, and patientsymptoms to aid in the diagnosis of [place]. 09/22/2023 3:49 PM EST 09/22/2023 3:54 PM EST Generic External Data Provider LAB BLOOD ORDERAB LES Final Result Performing Organization Address [facility] Co de Phone Number [facility] [address] [place] [phone] * Lipase (09/22/2023 3:49 PM EST) [facility] Lipase 29 8 - 78 U/L [facility] 09/22/2023 3:49 PM EST 09/22/2023 3:54 PM EST us Generic External Data Provider LAB BLOOD ORDERAB LES Final Result Performing Organization Address City/[facility]/ZIP Co de Phone Number [facility] [address] [place] [phone] * Magnesium (09/22/2023 3:49 PM EST) Pathologist [facility] Magnesium 1.8 1.6 - 2.6 mg/dL [facility] 09/22/2023 3:49 PM EST 09/22/2023 3:54 PM EST Generic External Data Provider LAB BLOOD ORDERAB LES Final Result Performing Organization Address [facility] Phone Number [facility] [address] [place] [phone] * (ABNORMAL) Basic Metabolic Panel (09/22/2023 3:49 PM EST) Sodium 130(L) 135 - 145 mmol/L [facility] Potassium 3.3 3.3 - 5.1 mmol/L [facility] Chloride 96 96 - 108 mmol/L [facility] Carbon Dioxide 26 22 - 29 mmol/L [facility] Anion Gap 11(L) 12 - [address] [facility] Urea Nitrogen (BUN) 3(L) 9 - 16 mg/dL [facility] Creatinine, Serum 0.78 0.5 - 1.4 mg/dL [facility] Creatinine Clr Calc Pharmacy 82.[address] [facility] Comment:eGFR (calculated fro m the MDRD study equation) and eCrCl(calculated from the Cockcroft-Gault equation) are based ondifferent parameters and may not yield comparable results.If eCrCl result is absurd, please check patient'sheight/weight. Estimated Glomerular Filt Rate >[address] [facility] Comment:NOTE: For -Am erican individuals, multiply the result by 1.210.Chronic Kidney Disease: Estimated GFR < 60 mL/min/1.06a7Rhbdnt Kidney Disease: Estimated GFR < 15 mL/min/1.73m2 Glucose 116(H) 60 - 115 mg/dL [facility] Calcium 8.3(L) 8.4 - 10.2 mg/dL [facility] 09/22/2023 3:49 PM EST 09/22/2023 3:54 PM EST Generic External Data Provider LAB BLOOD ORDERAB LES Final Result Performing Organization Address [facility]/ZIP Co de Phone Number [facility] [address] [place] [address] [phone] * (ABNORMAL) Hepatic Function Panel (09/22/2023 3:49 PM EST) Bilirubin, Total 1.1(H) 0.0 - 1.0 mg/dL [facility] Bilirubin, Direct 0.4 0.0 - 0.5 mg/dL [facility] Aspartate Amino Transferase 83(H) 5 - 37 U/L [facility] Alanine Aminotransferase 63(H) 0 - 40 U/L [facility] Total Protein 8.2(H) 6.5 - 8.0 g/dL [facility] Albumin Level 3.6 3.5 - 5.0 g/dL [facility] Alkaline Phosphatase 123(H) 39 - 117 U/L [facility] 09/22/2023 3:49 PM EST 09/22/2023 3:54 PM EST Generic External Data Provider LAB BLOOD ORDERAB LES Final Result Performing Organization Address [facility] Co de Phone Number [facility] [address] [place] [phone] documented in this encounter Visit Diagnoses Not on filedocumented in this encounter Care Teams Physician Representative Relationship Specialty Start Date End Date Josselin Velazquez FNP PCP - General Family Medicine 07/04/22 02/12/23 Javan Perez AGNP PCP - General Family Medicine 02/13/23 04/18/23 Ashley Hdz FNP [address] [place] [phone] PCP - General Family Medicine 04/19/23 04/08/24 Bo Kumar MD [address] [place] [phone] PCP - General Internal Medicine 04/09/24 03/05/25 Radha Martinez MD [address] [place] [phone] PCP - General Internal Medicine 03/06/25 documented as of this encounter
--- OUTSIDE RECORDS SUMMARY | 2025-05-28 20:02 | XMS_ITS | Encounter Summary ---
Author Organization [employer] Address [address] [address] Care Team Providers Care Repulping Supervisor Name Role Phone Radha Martinez MD Primary Care Pro vider Reason for Visit * Reason Onset Date Comments Appointment Request 05/23/2025 Med Refill 05/23/2025 Encounter Details Date Type Department Care Team (Late st Contact Info) Description 05/23/2025 Refill [facility] MEDICINE [address] [place] [address] Radha Martinez MD [address] [place], [place] [phone] Essential (primary) hypertension Social History Tobacco Use Types Packs/Day Years [...] your housing situation today? I have soha nikos 10/06/[address] you li [...] encounter Miscellaneous Notes * Telephone Encounter - Joanie Carrasco RN - 05/27/2025 10:40 AM EDT Telephone call placed to pt utilizing S# [id number] regarding below message. Informed that d/t ED visit where potassium and sodium were low, PCP would like to check labs prior to refilling chlorthalidone. Informed amlodipine refilled but will not fill chlorthalidone until we get lab results and determine that refill is appropriate. Informed labs ordered, not fasting can come to lab at his convenience. Pt given hours of operation. Pt inquiring if PCP is going to give him a potassium supplement. Explained that potassium is something that has to be within a certain range, it cannot be too high or too low or it is dangerous. The only time that potassium supplement is sent is if labs show that it is low or a low dose supplement with frequent monitoring if it is chronically low. Once again reiterated the need for labs to determine potassium level. Pt reports eating more potassium rich foods at home. Offered last minute cancellation with PCP today. Pt declined as he is in [place] right now.Booked for soonest sick visit with PCP 07/09/25 as instructed. Pt reports that he is in between houses right now and requested when we get results, we call him and confirmed this phone number. Please inform pt from last labs at ED in 02/2025 He had low potassium and sodium . I have not met pt yet but I am concern to refill requested chlorthalidone for BP before reevaluating chem - I did order before chem and mag still pending to get done with that information I can evaluation if it is safe for pt to continue or not chlorthalidone . I am refilling amlodipine Please help pt getting as soon apt w me even as sick visit for noted mx uncontrolled problems Thanks * Telephone Encounter - Kristie Velez RN - 05/26/2025 1:57 PM EDT Telephone call to [phone], no answer, phone rang but not in service unable to leave voicemail. [phone], pt's stepdaughter answered, not on HIPAA, advised her to have pt call back back [facility] when able. She said she will tell him. documented in this encounter Plan of Treatment Upcoming Encounters Date Type Department Care Team (Late st Contact Info) Description 07/09/2025 11:15 AM EST Office Visit [facility] MEDICINE [address] [place] [address] Radha Martinez MD [address] [place], [place] [phone] documented as of this encounter Visit Diagnoses Diagnosis Essential (primary) hypertension Unspecified essential hypertension documented in this encounter Additional Health Concerns Assessment Noted Time PHQ-9 Depression Total Score: 3 10/06/19 24 10:01 AM EST documented as of this encounter Care Teams Repulping Supervisor Relationship Specialty Start Date End Date Radha Martinez MD [address] [place] [address] PCP - General Internal Medicine 03/06/25 documented as of this encounter
--- OUTSIDE RECORDS SUMMARY | 2025-05-28 20:02 | XMS_ITS | Encounter Summary ---
Author Organization [employer] Address [address] [place] [address] Care Team Providers Care Service Cleaner Name Role Phone Radha Martinez MD Primary Care Pro vider Reason for Visit * Reason Comments Med Refill Encounter Details Date Type Department Care Team ([facility] st Contact Info) Description 05/26/[address] [facility] MED & PEDS [address] [place], [place] [phone] Name, MD Bo [address] [place] [address] Essential (primary) hypertension Social History Tobacco Use [...] Description 07/09/2025 11:15 AM EST Office Visit [facility] MEDICINE [address] [place] [phone] Radha Martinez MD [address] [place] [phone] documented as of this encounter Visit Diagnoses Diagnosis Essential (primary) hypertension Unspecified essential hypertension documented in this encounter Additional Health Concerns Assessment Noted Time PHQ-9 Depression Total Score: 3 10/06/19 24 10:01 AM EST documented as of this encounter Care Teams Service Cleaner Relationship Specialty Start Date End Date Radha Martinez MD [address] [place] [phone] PCP - General Internal Medicine 03/06/25 documented as of this encounter
--- OUTSIDE RECORDS SUMMARY | 2025-05-28 20:02 | XMS_ITS | Encounter Summary ---
Author Organization [employer] Address [address] [place] [address] [address] [address] Care Team Providers Care Union Organiser Name Role Phone Ashley Hdz Primary Care Provider [phone] Name, Bo GREEN Primary Care Provider [phone] Radha Martinez MD Primary Care Pro vider Reason for Visit * Reason Onset Date Comments TP appt 08/29/2023 Encounter Details Date Type Department Care Team (Late st Contact Info) Description 08/29/2023 Telephone [facility] MEDICINE [address] [place] [address] Ashley Hdz FNP [address] [place] [address] TP appt Social History Tobacco Use Types Packs/Day Years Used Date Smoking Tobacco: Never Smokeless Tobacco: Never Alcohol Use Standard Drinks/Week Comments Never 0 (1 standard drink = 0.6 oz pur e alcohol) Sex and Gender Information Value Date Recorded Sex Assigned at Male 06/06/2022 10:17 AM EDT Legal Sex Male 10:17 AM EDT Gender Identity Male 06/06/2022 10:17 AM EDT Sexual Orientation Don't know 06/06/2022 10 :17 AM EDT documented as of this encounter Miscellaneous Notes * Telephone Encounter - Pinky Cline - 08/29/2023 2:06 PM EST Tc from [facility] requesting on behalf of pt a TP appt with new provider. Please contact pt @ [employer] documented in this encounter Plan of Treatment Upcoming Encounters Date Type Department Care Team (Late st Contact Info) Description 07/09/2025 11:15 AM EST Office Visit [facility] MEDICINE [address] [place] [address] Radha Martinez MD [address] [place] [phone] documented as of this encounter Visit Diagnoses Not on filedocumented in this encounter Care Teams Union Organiser Relationship Specialty Start Date End Date Ashley Hdz FNP [address] [place] [phone] PCP - General Family Medicine 04/19/23 04/08/24 Bo Kumar MD [address] [place] [phone] PCP - General Internal Medicine 04/09/24 03/05/25 Radha Martinez MD [address] [place] [address] [phone] PCP - General Internal Medicine 03/06/25 documented as of this encounter
--- OUTSIDE RECORDS SUMMARY | 2025-05-28 20:02 | XMS_ITS | Clinical Summary ---
Author Organization [facility] Address [address] [place] [address] Phone Care Team Providers Care Scrape Gatherer Name Role Phone Unavailable Primary Care Provider Unavailabl e Allergies No known active allergies Medications albuterol HFA (PROAIR HFA ; PROVENTIL HFA ; VENTOLIN HFA) 90 mcg/actuation inhaler Inhale 2 puffs by mouth every 4 (four) hours if needed for shortness of breath (cough). 8 g Active Medical History Medical History Date Comments Leukemia ([facility] V24, [facility] V28) Diabetes mellitus ([facility] V24, [facility] V28) Social History Tobacco Use Types Packs/Day Years Used Date Smoking Tobacco: Never Assessed Sex and Gender Information Value Date Recorded Sex Assigned at Not on file Legal Sex Male 8:01 PM EDT Gender Identity Not on file Sexual Orientation Not on file Obstetrics History Last Filed Vital Signs Vital Sign Reading Time Taken Comments Blood Pressure 143/80 02/18/2025 2:07 AM EDT Pulse 64 02/18/2025 2:07 AM EDT Temperature 36.6 C (97.9 F) 02/18/2025 2:07 AM EDT Respiratory Rate 16 02/18/2025 2:07 AM EDT Oxygen Saturation 97% 02/18/2025 2:07 AM EDT Inhaled Oxygen Concentration - - Weight - - Height 167.6 cm (5' 6 ) 02/17/2025 9:12 PM EDT Body Mass Index - - Plan of Treatment Health Maintenance Due Date Last Done Comments Colorectal Cancer Screening: Colonoscopy 1955 COVID-19 Vaccine (#1) 01/26/1961 Hepatitis A Vaccines (2 of 2 - Risk 2-dose series) 11/16/2006 05/18/2006 DTaP,Tdap,and Td Vaccines (3 - Td or Tdap) 12/07/2022 12/07/2012, 01/05/2006 Zoster Vaccines (2 of 2) 12/01/2023 10/06/2023 Depression Screening 08/07/2024 Abdominal Aortic Aneurysm (AAA) Screen 02/18/2025 Falls Risk Assessment 02/18/2025 Hepatitis C Screening 02/18/2025 Medicare Annual Wellness Visit 02/18/2025 Social Influencers of Health Screening 02/18/2025 Influenza Vaccine (#1) 2025 9, 05/21/2018, 05/04/2015, Additional history exists Hypertension/CHF/CAD Annual BMP Blood Test 02/17/2026 02/17/2025 Cholesterol Screening (Lipid Panel) 01/26/2027 01/26/2022 Pneumococcal Vaccine: 50+ Years Completed 10/06/2023, 08/20/2018, 01/05/2007, Additional history exists RSV Immunization Adult Patients Completed 10/06/2023 HIB Vaccines Aged Out No [...] on patient's age to complete this topic MMR Vaccines Aged Out No longer eligi ble based on patient's age to complete this topic Meningococcal ACWY Vaccine Aged Out N o longer eligible based on patient's age to complete this topic Meningococcal B Vaccine Aged Out No l onger eligible based on patient's age to complete this topic RSV Immunization Patients Under 20 months Aged Out No longer eligible based on patient's age to complete this topic Varicella Vaccines Aged Out No longer eligible based on patient's age to complete this topic Procedures Procedure Name Priority Date/Time Associated Diagnosis Comments COMPREHENSIVE METABOLIC PANEL STAT 02/17/2025 9:38 PM EDT from Last 3 Months or Most Recently Relevant to Health Maintenance Results * (ABNORMAL) Comprehensive metabolic panel (02/17/2025 9:38 PM EDT) Sodium 125(L) 133 - 145 mmol/L LAB CHEMISTRY METHOD 02/17/2025 10:11 PM [facility] Potassium 3.4(L) 3.5 - 5.5 mmol/L LAB CHEMISTRY METHOD 02/17/2025 10:11 PM [facility] Chloride 91(L) 96 - 110 mmol/L LAB CHEMISTRY METHOD 02/17/2025 10:11 PM [facility] CO2 27 21 - 32 mmol/L LAB CHEMISTRY METHOD 02/17/2025 10:11 PM [facility] Anion Gap 7 3 - 11 LAB CHEMISTRY METHOD 02/17/2025 10:11 PM [facility] Glucose 113(H) 70 - 100 mg/dL LAB CHEMISTRY METHOD 02/17/2025 10:11 PM [facility] BUN 7 5 - 25 mg/dL LAB CHEMISTRY METHOD 02/17/2025 10:11 PM [facility] Creatinine 0.72 0.70 - 1.30 mg/dL LAB CHEMISTRY METHOD 02/17/2025 10:11 PM [facility] eGFR 99 >=60 mL/min/1. 73m2 LAB CHEMISTRY METHOD 02/17/2025 10:11 PM [facility] Comment:Calculation based on the Chronic Kidney Disease Epidemiology Collaboration (CKD-EPI) equation refit without adjustment for race. BUN/Creatinine Ratio 9.7 LAB CHEMISTRY METHOD 02/17/2025 10:11 PM [facility] Calcium 9.4 8.5 - 10.5 mg/dL LAB CHEMISTRY METHOD 02/17/2025 10:11 PM [facility] AST (SGOT) 21 10 - 42 unit/L LAB CHEMISTRY METHOD 02/17/2025 10:11 PM [facility] ALT (SGPT) 23 10 - 60 unit/L LAB CHEMISTRY METHOD 02/17/2025 10:11 PM [facility] Alkaline Phosphatase 140(H) 42 - 121 unit/L LAB CHEMISTRY METHOD 02/17/2025 10:11 PM EDT [facility] Total Protein 8.7(H) 6.0 - 8.0 g/dL LAB CHEMISTRY METHOD 02/17/2025 10:11 PM EDT [facility] Albumin 3.5 3.2 - 5.0 g/dL LAB CHEMISTRY METHOD 02/17/2025 10:11 PM EDT [facility] Total Bilirubin 0.6 0.0 - 1.4 mg/dL LAB CHEMISTRY METHOD 02/17/2025 10:11 PM EDT [facility] Blood Venous blood specimen / Unknown Venipuncture / Unknown 02/17/2025 9:38 PM EDT 02/17/2025 9:47 PM EDT us Andrews Roque MD LAB BLOOD ORDERABLES Final R esult [facility] [address] [place] [address], [place] [phone] from Last 3 Months or Most Recently Relevant to Health Maintenance Insurance [facility] MEDIC[facility] Member Subscriber Plan / Payer (Ef fective 2016-Present) Name:RAKAN DANIEL Relation to Subscriber:Self Name:Rakan Daniel Payer ID:[id number] Group ID:[id number] Type:Not on file Address: [address] [facility] [place] [phone]
== END 2025-05-28 13:58 | disposition home or self-care (01) ==
LOC: HO.HHCL 13:57
PROVIDERS: Internal Medicine; PCP Internal Medicine Geriatric Medicine; Visit Provider Student in an Organized Health Care Education/Training Program
DX: C92.10 Chronic myeloid leukemia, BCR/ABL-positive, not having achieved remission (principal); E87.6 Hypokalemia
CPT/HCPCS: 80053; 83735; 85025